=== PATIENT | male | born 1955 | race Caucasian/White ===

== ENCOUNTER 2016-06-28 11:21 | Inpatient (IN) | payer OTHER ==
[~2016-06-28] VITALS: Ht 167.6 cm; Wt 70.0 kg
[2016-06-28] MEDS: 1/2 NS + KCL 20 MEQ 1,000 ML IV SCH (06:15)
[2016-06-28 11:25] VITALS: Ht 167.6 cm; Wt 70.0 kg
[2016-06-28] MEDS ORDERED: SOD CHLORIDE 0.9% 1,000 ML IV STA (11:36)
[2016-06-28] MEDS ORDERED: DOCU-144 PO (12:32)
[2016-06-28 12:59] LABS: ADD SCAN DIFF NO
[2016-06-28 13:03] LABS: BASOPHILS % 0.2 % (0.0-2.0); EOSINOPHILS # 0.1 10^3/ul (0.0-0.5); EOSINOPHILS % 1.6 % (0.0-7.0); HEMATOCRIT 39.7 % (42.0-52.0); HEMOGLOBIN 12.6 g/dl (14.0-18.0); LYMPHOCYTES # 0.8 10^3/ul (0.8-2.9); LYMPHOCYTES % 15.1 % (15.0-51.0); MEAN CORPUSCULAR HEMOGLOBIN 28.3 pg (29.0-33.0); MEAN CORPUSCULAR HGB CONC 31.7 g/dl (32.0-37.0); MEAN CORPUSCULAR VOLUME 89.2 fl (82.0-101.0); MEAN PLATELET VOLUME 12.3 fl (7.4-10.4); MONOCYTE # 0.5 10^3/ul (0.3-0.9); MONOCYTES % 9.5 % (0.0-11.0); NEUTROPHIL # 4.1 10^3/ul (1.6-7.5); NEUTROPHILS % 73.4 % (39.0-77.0); PLATELET COUNT 121 10^3/UL (140-415); RED BLOOD COUNT 4.45 10^6/ul (4.70-6.10); RED CELL DISTRIBUTION WIDTH 13.6 % (11.5-14.5); WHITE BLOOD COUNT 5.6 10^3/ul (4.8-10.8)
[2016-06-28 13:18] LABS: INR 1.36; PROTIME 16.8 Sec (12.2-14.2); PT RATIO 1.3
[2016-06-28 13:19] LABS: ALBUMIN 3.4 g/dl (3.3-4.9); PARTIAL THROMBOPLASTIN TIME 29.2 Sec (25.0-35.0)
[2016-06-28 13:20] LABS: CHLORIDE 104 mmol/L (97-110); POTASSIUM 3.3 mmol/L (3.5-5.1); SODIUM 143 mmol/L (135-144)
[2016-06-28 13:22] LABS: ALBUMIN/GLOBULIN RATIO 1.21; ANION GAP 12 (8-16); BILIRUBIN,INDIRECT 0.5 mg/dl (0-1.1); BILIRUBIN,TOTAL 0.5 mg/dl (0.2-1.3); CARBON DIOXIDE 30 mmol/L (21-31); CREATININE 0.68 mg/dl (0.61-1.24); TOTAL PROTEIN 6.2 g/dl (6.1-8.1)
[2016-06-28 13:23] LABS: ALKALINE PHOSPHATASE 70 IU/L (42-121); BLOOD UREA NITROGEN 22 mg/dl (7-20); CALCIUM 8.4 mg/dl (8.4-10.2); GLUCOSE 97 mg/dl (70-220)
[2016-06-28 13:41] LABS: ASPARTATE AMINO TRANSFERASE 1466 IU/L (15-46)
[2016-06-28 13:42] LABS: ACETAMINOPHEN < 10.0 ug/ml (10.0-30.0); ETHANOL < 10.0 mg/dl; SALICYLATE < 1.0 mg/dl (5.0-30.0)
[2016-06-28] MEDS ORDERED: ACETYLCYSTEINE 20% 30 ML VIAL PO STA (14:02)
[2016-06-28 15:36] LABS: ADD UMIC YES; URINE BILIRUBIN (Dip) 2+ (NEGATIVE); URINE BLOOD (Dip) NEGATIVE (NEGATIVE); URINE COLOR DK. YELLOW (YELLOW); URINE KETONES (Dip) 40 (NEGATIVE); URINE LEUKOCYTE ESTERASE (Dip) NEGATIVE (NEGATIVE); URINE NITRITE (Dip) NEGATIVE (NEGATIVE); URINE TOTAL PROTEIN (Dip) 1+ (NEGATIVE); URINE UROBILINOGEN (Dip) 4.0 E.U./dL (0.1-1.0)
[2016-06-28] MEDS ORDERED: SOD CHLORIDE 0.9% 1,000 ML IV SCH (15:56)
[2016-06-28 15:57] LABS: BACTERIA,URINE FEW; SQUAMOUS EPITHELIAL CELL,UR RARE; URINE RBCS 0-2 /HPF (0)
[2016-06-28] MEDS ORDERED: ONDANSETRON 4 MG INJ IV PRN ×2 (16:00→17:00)
[2016-06-28] MEDS ORDERED: ACETAMINOPHEN 325 MG TAB PO PRN (16:00)
[2016-06-28 16:06] LABS: ICTOTEST NEGATIVE (NEGATIVE)
[2016-06-28 16:06] LABS: ALANINE AMINOTRANSFERASE 3710 IU/L (13-69)
[2016-06-28 16:11] LABS: BARBITURATES NEGATIVE (NEGATIVE); BENZODIAZEPINES NEGATIVE (NEGATIVE); CANNABINOIDS NEGATIVE (NEGATIVE); COCAINE NEGATIVE (NEGATIVE); OPIATES NEGATIVE (NEGATIVE)
--- NOTE | 2016-06-28 16:17 | ERA ---
ER Documentation Chief Complaint Date/Time DATE: 06/28/16 TIME: 16:12 Chief Complaint BIBA FOR INTENTIONAL TYLENOL OD 40 TABS.VERBALIZED SI HPI This is a 61-year-old male who presents to the emergency room after being brought in by ambulance from home for evaluation of overdose. The patient states that he took 40 tabs of 215 mg Tylenols 48 hours ago. The patient states that he told the social media marketing specialist there is an social media marketing specialist called 911 and the patient was transferred to the emergency room. He does state that he is having pain and localizes the pain to the right upper quadrant. The patient denies any other coingestions and came to the emergency room for further evaluation. He denies any nausea or vomiting ROS All systems reviewed and are negative except as per history of present illness. Medications Home Meds Reported Medications Docusate Sodium* (Colace*) 100 Mg Capsule, 100 MG PO BID Y for CONSTIPATION, # 60 CAP 06/28/16 Allergies Allergies: Coded Allergies: No Known Allergy (Unverified , 06/28/16) PMhx/Soc Anesthesia Reaction: No Hx Neurological Disorder: No Hx Respiratory Disorders: No Hx Cardiac Disorders: No Hx Psychiatric Problems: Yes (Bipolar/ schizophrenic) Hx Miscellaneous Medical Probl: No Hx Alcohol Use: No Hx Substance Use: No Hx Tobacco Use: No Smoking Status: Former smoker Physical Exam Vitals Vital Signs Date Time Temp Pulse Resp B/P Pulse Ox O2 Delivery O2 Flow Rate FiO2 06/28/16 15:00 98.9 82 16 124/80 98 06/28/16 11:25 98.9 78 18 129/82 98 Physical Exam INITIAL VITAL SIGNS: Reviewed by me GENERAL: The patient is well developed and appropriate for usual state of health in no apparent distress HEENT: Pupils equal, round, and reactive to light. EOMI. There is no scleral icterus. NECK: C-spine is soft and supple, there is no meningismus. There is no cervical lymphadenopathy. LUNGS: Clear to auscultation bilaterally. There are no rales, wheezes or rhonchi. HEART: Regular rate and rhythm, no murmurs, clicks, rubs or gallops. ABDOMEN: Tenderness to palpation in the right upper quadrant, otherwise soft, non-tender, non-distended. There are bowel sounds in all four quadrants. No rebound or guarding. EXTREMITIES: There is no peripheral cyanosis or edema. No focal swelling or erythema. NEUROLOGICAL: The patient moves all four extremities with 5/5 strength. Cranial nerves II - XII are intact. Normal gait. Alert and oriented SKIN: There is no apparent rash or petechiae. HEME/LYMPHATIC: There is no evidence of excessive bruising or lymphedema. PSYCHIATRIC: The patient does not appear anxious or depressed. Result Diagram: 06/28/16 1255 06/28/16 1255 Results 24 hrs Laboratory Tests Test 06/28/16 12:55 06/28/16 15:01 White Blood Count 5.610^3/ul Red Blood Count 4.4510^6/ul Hemoglobin 12.6g/dl Hematocrit 39.7% Mean Corpuscular Volume 89.2fl Mean Corpuscular Hemoglobin 28.3pg Mean Corpuscular Hemoglobin Concent 31.7g/dl Red Cell Distribution Width 13.6% Platelet Count 07478^3/UL Mean Platelet Volume 12.3fl Neutrophils % 73.4% Lymphocytes % 15.1% Monocytes % 9.5% Eosinophils % 1.6% Basophils % 0.2% Nucleated Red Blood Cells % 0.0/100WBC Neutrophils # 4.110^3/ul Lymphocytes # 0.810^3/ul Monocytes # 0.510^3/ul Eosinophils # 0.110^3/ul Basophils # 0.010^3/ul Nucleated Red Blood Cells # 0.010^3/ul Prothrombin Time 16.8Sec Prothrombin Time Ratio 1.3 INR International Normalized Ratio 1.36 Activated Partial Thromboplast Time 29.2Sec Sodium Level 143mmol/L Potassium Level 3.3mmol/L Chloride Level 104mmol/L Carbon Dioxide Level 30mmol/L Anion Gap 12 Blood Urea Nitrogen 22mg/dl Creatinine 0.68mg/dl Glucose Level 97mg/dl Calcium Level 8.4mg/dl Total Bilirubin 0.5mg/dl Direct Bilirubin 0.00mg/dl Indirect Bilirubin 0.5mg/dl Aspartate Amino Transf (AST/SGOT) 1466IU/L Alanine Aminotransferase (ALT/SGPT) 3710IU/L Alkaline Phosphatase 70IU/L Total Protein 6.2g/dl Albumin 3.4g/dl Globulin 2.80g/dl Albumin/Globulin Ratio 1.21 Salicylates Level < 1.0mg/dl Acetaminophen Level < 10.0ug/ml Ethyl Alcohol Level < 10.0mg/dl Urine Color DK. YELLOW Urine Clarity CLEAR Urine pH 6.0 Urine Specific [place] >=1.030 Urine Ketones 40 Urine Nitrite NEGATIVE Urine Bilirubin 2+ Urine Ictotest NEGATIVE Urine Urobilinogen 4.0 E.U./dL Urine Leukocyte Esterase NEGATIVE Urine Microscopic RBC 0-2/HPF Urine Microscopic WBC 0-2/HPF Urine Squamous Epithelial Cells RARE Urine Bacteria FEW Urine Hemoglobin NEGATIVE Urine Glucose 0.1%% Urine Total Protein 1+ Urine Opiates Screen NEGATIVE Urine Barbiturates NEGATIVE Urine Amphetamines Screen NEGATIVE Urine Benzodiazepines Screen NEGATIVE Urine Cocaine Screen NEGATIVE Urine Cannabinoids NEGATIVE Current Medications Medications (Trade) Dose Ordered Sig/[place] Route PRN Reason Start Time Stop Time Status Last Admin Dose Admin Sodium Chloride (NS) 1,000 ml @ 1,000 mls/hr Q1H STAT IV 06/28/16 11:36 06/28/16 12:35 DC 06/28/16 11:46 Acetylcysteine 9.8 gm 9.8 gm ONCE STAT PO 06/28/16 14:02 06/28/16 14:10 DC 06/28/16 14:35 Sodium Chloride (NS) 1,000 ml @ 80 mls/hr [id number] IV 06/28/16 15:56 06/29/16 04:25 Ondansetron HCl (Zofran Inj) 4 mg BRIDGE ORDER PRN IV NAUSEA AND/OR VOMITING 06/28/16 16:00 06/29/16 15:59 Acetaminophen (Tylenol Tab) 650 mg ER BRIDGE PRN PO MILD PAIN/FEVER 06/28/16 16:00 06/29/16 15:59 Procedures/MDM EKG: Rate/Rhythm: [Normal Sinus Rhythm] QRS, ST, T-waves: [No changes consistent w/ acute ischemia] Impression: [No evidence of ischemia or arrhythmia] This 61-year-old male presents to the emergency room after ingesting approximately 10 g of Tylenol 48 hours ago. When I evaluated this patient he did have a tenderness to palpation in the right upper quadrant. Lab work was obtained in the patient's Tylenol level is 0 as expected if he were to have taken Tylenol 48 hours ago however he does have significant transaminitis and given the patient's history the patient was started on oral N-acetylcysteine. We have contacted poison control who recommended continuation of N- acetylcysteine with a repeat liver function test. This patient is alert oriented to person place and time, he is hemodynamically stable at this time and will be placed in for admission to the [facility] floor with a sitter for suicidal ideation. He will be admitted under the care of Dr. Enrique. Critical Care: Excluding all billable procedures Time: 34 minutes Treatments/Evaluations: Close monitoring and treatment of unstable vital signs, cardiorespiratory, and neurologic status, while maintaining tight balance of fluid, respiratory, and cardiac interventions. Departure Diagnosis: Primary Impression: Overdose on Tylenol Additional Impressions: Suicide attempt by substance overdose Acute hepatitis Normocytic anemia Thrombocytopenia Condition: Serious MIKEJUDITH CROWE June 28, 2016 16:17
[2016-06-28] MEDS ORDERED: DOCUSATE SODIUM 100 MG CAP PO PRN (17:00)
[2016-06-28] MEDS ORDERED: NACL 0.9% 3 ML SYG IV SCH (17:00)
[2016-06-28] MEDS: ACETYLCYSTEINE 20% 30 ML VIAL PO SCH ×2 (17:07→21:00)
--- NOTE | 2016-06-28 18:32 | CONS ---
Date/Time of Note Date/Time of Note DATE: 06/28/16 TIME: 18:21 Assessment/Plan Assessment/Plan Additional Assessment/Plan Assessment * Elevated transaminase Tylenol overdose Suicidal ideation Schizophrenia/Bipolar disorder Plan * monitor liver profile to include PT,PTT INR * continue present management Consultation Date/Type/Reason Admit Date/Time Date of Consultation: June 28, 2016 Type of Consultation: gastroenerology Reason for Consultation tylenol toxicity/elevated transaminase Referring Provider: AGUILAR BRADLEY Hx of Present Illness 61 year old male with past medical of schizophrenia,and bipolar disorder who was brought to emergency room for evaluation of overdose.He claimed to have taken 40 tablets of Tylenol 115 mg 48 hours ago.patient denies any nausea, vomiting,nor abdominal pain. Emergency room course revealed ALT 3710.AST 17333,alkaline phosphatase 70 Tylenol <10.Presently no abdominal pain nausea nor vomiting.Patient was also given acetylcysteine Past Medical History Medical History: other (bipolar,schizophrenia) Past Surgical History Past Surgical Hx: no surgical history Family History Significant Family History: no pertinent family hx Social History Smoking Status: Former smoker Exam/Review of Systems Vital Signs Vitals Vital Signs Date Time Temp Pulse Resp B/P Pulse Ox O2 Delivery O2 Flow Rate FiO2 06/28/16 15:00 98.9 82 16 124/80 98 Exam Constitutional: alert, oriented, well developed Head: atraumatic, normocephalic Eyes: PERRL, nl conjunctiva, nl sclera Neck: non-tender, supple Respiratory: clear to auscultation, normal air movement Cardiovascular: nl pulses, regular rate and rhythm Gastrointestinal: nl liver, spleen, non-tender, soft Musculoskeletal: nl extremities to inspection, nl gait and stance Extremities: normal pulses Neurological: DRAMATIC CRITIC II-XII intact, nl mental status, nl speech, nl strength Skin: nl turgor, No rash or lesions Lymph: nl lymph nodes Results Result Diagram: 06/28/16 1255 06/28/16 1255 Results 24 hrs Laboratory Tests Test 06/28/16 12:55 06/28/16 15:01 White Blood Count 5.6 Red Blood Count 4.45 L Hemoglobin 12.6 L Hematocrit 39.7 L Mean Corpuscular Volume 89.2 Mean Corpuscular Hemoglobin 28.3 L Mean Corpuscular Hemoglobin Concent 31.7 L Red Cell Distribution Width 13.6 Platelet Count 121 L Mean Platelet Volume 12.3 H Neutrophils % 73.4 Lymphocytes % 15.1 Monocytes % 9.5 Eosinophils % 1.6 Basophils % 0.2 Nucleated Red Blood Cells % 0.0 Neutrophils # 4.1 Lymphocytes # 0.8 Monocytes # 0.5 Eosinophils # 0.1 Basophils # 0.0 Nucleated Red Blood Cells # 0.0 Prothrombin Time 16.8 H Prothrombin Time Ratio 1.3 INR International Normalized Ratio 1.36 Activated Partial Thromboplast Time 29.2 Sodium Level 143 Potassium Level 3.3 L Chloride Level 104 Carbon Dioxide Level 30 Anion Gap 12 Blood Urea Nitrogen 22 H Creatinine 0.68 Glucose Level 97 Calcium Level 8.4 Total Bilirubin 0.5 Direct Bilirubin 0.00 Indirect Bilirubin 0.5 Aspartate Amino Transf (AST/SGOT) 1466 H Alanine Aminotransferase (ALT/SGPT) 3710 H Alkaline Phosphatase 70 Total Protein 6.2 Albumin 3.4 Globulin 2.80 Albumin/Globulin Ratio 1.21 Salicylates Level < 1.0 L Acetaminophen Level < 10.0 L Ethyl Alcohol Level < 10.0 Urine Color DK. YELLOW Urine Clarity CLEAR Urine pH 6.0 Urine Specific [place] >=1.030 H Urine Ketones 40 Urine Nitrite NEGATIVE Urine Bilirubin 2+ H Urine Ictotest NEGATIVE Urine Urobilinogen 4.0 E.U./dL H Urine Leukocyte Esterase NEGATIVE Urine Microscopic RBC 0-2 Urine Microscopic WBC 0-2 Urine Squamous Epithelial Cells RARE Urine Bacteria FEW Urine Hemoglobin NEGATIVE Urine Glucose 0.1% H Urine Total Protein 1+ H Urine Opiates Screen NEGATIVE Urine Barbiturates NEGATIVE Urine Amphetamines Screen NEGATIVE Urine Benzodiazepines Screen NEGATIVE Urine Cocaine Screen NEGATIVE Urine Cannabinoids NEGATIVE Medications Medications Current Medications Sodium Chloride (NS) 1,000 ml @ 80 mls/hr [id number] IV Last administered on 06/28 16:30; Admin Dose 80 MLS/HR; Start 06/28/16 at 15:56; Stop 06/29/16 at 04: 25 Acetylcysteine 4.9 gm 4.9 gm Q4 PO Last administered on 06/28/16 17:07; Admin Dose 4.9 GM; Start 06/28/16 at 17:00; Stop 07/01/16 at 09:01 Potassium Chloride/Sodium Chloride (1/2 NS + KCl 20 Meq) 1,000 ml @ 100 mls/hr Q10H IV ; Start 06/28/16 at 16:35 Ondansetron HCl (Zofran Inj) 4 mg Q6H PRN IV NAUSEA AND/OR VOMITING; Start at 17:00 Docusate Sodium (Colace) 100 mg Q12H PRN PO CONSTIPATION; Start 06/28/16 at 17: 00 ROX SEQUEIRA MD June 28, 2016 18:31
[2016-06-28 18:49] LABS: BILIRUBIN,INDIRECT 0.4 mg/dl (0-1.1); BILIRUBIN,TOTAL 0.4 mg/dl (0.2-1.3)
--- NOTE | 2016-06-28 19:01 | HP ---
DATE OF ADMISSION: 06/28/2016 06/26/1998 CHIEF COMPLAINT: Tylenol overdose. HISTORY OF PRESENT ILLNESS: The patient is a 61-year-old male with a history of schizoaffective dis order. The patient presents to the ER after being brought in by ambulance from home for evaluation of overdose. The patient reportedly took 40 tablets of Tylenol 48 hours prior. The patient reporte joaquim told the psychotherapist social worker and the psychotherapist social worker then called 911, and the patient was transferred to the emergency room. The patient does state that he has pain in the right upper quadrant. He has n o other complaints at this time, does state that he was trying to take his own life. He states that he could not find his wallet and got frustrated and felt that he wanted to take his own life. The patient states that he has no roommates and lives on his own. The patient does state that he has a psychiatrist, but he had not picked up his psychiatric medications over the past week. The patient has no other medical history. In the emergency department, the patient's LFTs were elevated. Tylen ol level was negative. PAST MEDICAL HISTORY: Schizoaffective disorder on psychiatric medications. PAST SURGICAL HISTORY: Denies. HOME MEDICATIONS: Colace. ALLERGIES: NO KNOWN DRUG ALLERGIES. FAMILY HISTORY: He states his father had dysthymic disorder. SOCIAL HISTORY: Denies any drug abuse, alcohol abuse, or tobacco abuse. REVIEW OF SYSTEMS: A 12-point review of systems negative except as in HPI. PHYSICAL EXAMINATION: VITAL SIGNS: Temperature is 98.9, pulse 82, respiratory rate 16, BP is 124/80, saturation 98% on ro om air. GENERAL: No acute distress, alert, slow mentation. HEENT: Normocephalic, atraumatic. LUNGS: Clear to auscultation. CARDIOVASCULAR: Regular rate and rhythm. ABDOMEN: Nondistended, soft, tender to palpation in the right upper quadrant. EXTREMITIES: No clubbing, cyanosis, or edema. LABORATORY TESTS: White count is 5.6, hemoglobin 12.6, platelets are 121. Chemistry: Sodium is 14 3, potassium is 3.3, BUN 22, creatinine is 0.68, AST is 1466, ALT is 2710. INR is 1.36. UA is with in normal limits except for 2+ bilirubin, 1+ total protein. U-tox is negative. Tylenol level is neg ative. ASSESSMENT AND PLAN: 1. Attempted suicide with Tylenol overdose. The patient took Tylenol at 40 hours prior. Tylenol i s hence negative, but his liver function tests are still elevated. Poison control was contacted in the emergency department. Recommendation is to continue Mucomyst p.o., which has already been orde red in the emergency department and has been started. We ____ telemetry and monitor liver function tests. Will get a gastroenterology consult. will get a psychiatric evaluation, a psychotherapist social worker brigida sue. 2. History of schizoaffective disorder. Once again, we will get a psych consult. His home psychia tric medications are unclear. 3. Hypokalemia, replete. 4. Thrombocytopenia is mild. We will monitor. 5. Prophylaxis: Sequential compression devices. Dictated By: BRITTNEY MICHAEL MD BS/NTS Conf#: [id number] DID#: [id number]
[2016-06-28 21:10] VITALS: TEMP 98.6
[2016-06-28 21:42] VITALS: PULSE 53
[2016-06-28 21:44] VITALS: BP 135/80; RESP 16
[2016-06-29] VITALS (9 sets, daily range): BP systolic 122–125; BP diastolic 67–75; PULSE 50–68; RESP 20
[2016-06-29] MEDS: ACETYLCYSTEINE 20% 30 ML VIAL PO SCH ×6 (01:00→21:48)
[2016-06-29] MEDS: 1/2 NS + KCL 20 MEQ 1,000 ML IV SCH ×3 (02:35→15:43)
[2016-06-29 08:37] LABS: ADD SCAN DIFF NO
[2016-06-29 08:47] LABS: BASOPHILS % 0.3 % (0.0-2.0); EOSINOPHILS # 0.1 10^3/ul (0.0-0.5); EOSINOPHILS % 0.9 % (0.0-7.0); HEMATOCRIT 41.5 % (42.0-52.0); HEMOGLOBIN 13.5 g/dl (14.0-18.0); LYMPHOCYTES # 0.9 10^3/ul (0.8-2.9); LYMPHOCYTES % 14.5 % (15.0-51.0); MEAN CORPUSCULAR HEMOGLOBIN 28.8 pg (29.0-33.0); MEAN CORPUSCULAR HGB CONC 32.5 g/dl (32.0-37.0); MEAN CORPUSCULAR VOLUME 88.7 fl (82.0-101.0); MEAN PLATELET VOLUME 12.6 fl (7.4-10.4); MONOCYTE # 0.6 10^3/ul (0.3-0.9); MONOCYTES % 8.5 % (0.0-11.0); NEUTROPHIL # 4.9 10^3/ul (1.6-7.5); NEUTROPHILS % 75.5 % (39.0-77.0); PLATELET COUNT 137 10^3/UL (140-415); RED BLOOD COUNT 4.68 10^6/ul (4.70-6.10); RED CELL DISTRIBUTION WIDTH 13.4 % (11.5-14.5); WHITE BLOOD COUNT 6.5 10^3/ul (4.8-10.8)
[2016-06-29 09:09] LABS: ALBUMIN 3.3 g/dl (3.3-4.9); ALBUMIN/GLOBULIN RATIO 1.17; BILIRUBIN,INDIRECT 0.4 mg/dl (0-1.1); BILIRUBIN,TOTAL 0.4 mg/dl (0.2-1.3); CALCIUM 8.4 mg/dl (8.4-10.2); CREATININE 0.51 mg/dl (0.61-1.24); MAGNESIUM 1.9 mg/dl (1.7-2.5); PHOSPHORUS 2.8 mg/dl (2.5-4.9); POTASSIUM 3.2 mmol/L (3.5-5.1); TOTAL PROTEIN 6.1 g/dl (6.1-8.1)
[2016-06-29] MEDS ORDERED: POTASSIUM CHLORIDE (SR) 20 MEQ TAB PO STA (10:12)
--- NOTE | 2016-06-29 15:19 | PN ---
Date/Time of Note Date/Time of Note DATE: 06/29/16 TIME: 15:15 Assessment/Plan VTE Prophylaxis VTE Prophylaxis Intervention: SCD's Assessment/Plan Chief Complaint/Hosp Course 1. Attempted suicide with Tylenol overdose Liver enzymes are trending down GI consultation appreciated Continue Mucomyst Patient denying suicidal ideation at this time, continue one-to-one sitter for now 2. History of schizoaffective disorder Telemetry psych evaluation, director social service consultation 3. Hypokalemia- replete 4. Thrombocytopenia-mild Monitor Prophylaxis: Sequential compression devices Problems: Subjective 24 Hr Interval Summary Constitutional: no complaints Exam/Review of Systems Vital Signs Vitals Vital Signs Date Time Temp Pulse Resp B/P Pulse Ox O2 Delivery O2 Flow Rate FiO2 06/29/16 12:00 59 06/29/16 12:00 98.7 20 122/67 98 06/28/16 21:10 Room Air Intake and Output 06/28/16 06/28/16 06/29/16 15:00 23:00 07:00 Intake Total 1000 ml Balance 1000 ml Exam Constitutional: alert Respiratory: clear to auscultation Cardiovascular: regular rate and rhythm Gastrointestinal: soft, No distended Musculoskeletal: nl extremities to inspection Results Result Diagram: 06/29/16 0725 06/29/16 0725 Results 24 hrs Laboratory Tests Test 06/29/16 07:25 White Blood Count 6.5 Red Blood Count 4.68 L Hemoglobin 13.5 L Hematocrit 41.5 L Mean Corpuscular Volume 88.7 Mean Corpuscular Hemoglobin 28.8 L Mean Corpuscular Hemoglobin Concent 32.5 Red Cell Distribution Width 13.4 Platelet Count 137 L Mean Platelet Volume 12.6 H Neutrophils % 75.5 Lymphocytes % 14.5 L Monocytes % 8.5 Eosinophils % 0.9 Basophils % 0.3 Nucleated Red Blood Cells % 0.0 Neutrophils # 4.9 Lymphocytes # 0.9 Monocytes # 0.6 Eosinophils # 0.1 Basophils # 0.0 Nucleated Red Blood Cells # 0.0 Sodium Level 139 Potassium Level 3.2 L Chloride Level 108 Carbon Dioxide Level 24 Anion Gap 10 Blood Urea Nitrogen 17 Creatinine 0.51 L Glucose Level 77 Hemoglobin A1c 5.4 Calcium Level 8.4 Phosphorus Level 2.8 Magnesium Level 1.9 Total Bilirubin 0.4 Direct Bilirubin 0.00 Indirect Bilirubin 0.4 Aspartate Amino Transf (AST/SGOT) 604 #H Alanine Aminotransferase (ALT/SGPT) 2497 H Alkaline Phosphatase 63 Total Protein 6.1 Albumin 3.3 Globulin 2.80 Albumin/Globulin Ratio 1.17 Medications Medications Current Medications Acetylcysteine 4.9 gm 4.9 gm Q4 PO Last administered on 06/29/16 13:01; Admin Dose 4.9 GM; Start 06/28/16 at 17:00; Stop 07/01/16 at 09:01 Potassium Chloride/Sodium Chloride (1/2 NS + KCl 20 Meq) 1,000 ml @ 100 mls/hr Q10H IV Last administered on 06/28/16 06:15; Admin Dose 100 MLS/HR; Start at 16:35 Ondansetron HCl (Zofran Inj) 4 mg Q6H PRN IV NAUSEA AND/OR VOMITING; Start at 17:00 Docusate Sodium (Colace) 100 mg Q12H PRN PO CONSTIPATION; Start 06/28/16 at 17: 00 BRITTNEY MICHAEL June 29, 2016 15:19
--- NOTE | 2016-06-29 15:58 | PN ---
Date/Time of Note Date/Time of Note DATE: 06/29/16 TIME: 15:54 Assessment/Plan VTE Prophylaxis VTE Prophylaxis Intervention: SCD's Assessment/Plan Assessment/Plan Assessment * Elevated transaminase Tylenol overdose Suicidal ideation Schizophrenia/Bipolar disorder Plan * monitor liver profile to include PT,PTT INR daily * continue present management Subjective 24 Hr Interval Summary Free Text/Dictation * Course reviewed with RN * Patient seen and examined * Liver enzymes trending down * ALT 3710- 2497 * AST 1466- 604 * denies abdominal pain Exam/Review of Systems Vital Signs Vitals Vital Signs Date Time Temp Pulse Resp B/P Pulse Ox O2 Delivery O2 Flow Rate FiO2 06/29/16 15:38 98.5 69 20 123/73 99 06/28/16 21:10 Room Air Intake and Output 06/28/16 06/28/16 06/29/16 15:00 23:00 07:00 Intake Total 1000 ml Balance 1000 ml Exam Constitutional: alert, frail Head: normocephalic Neck: non-tender, supple Respiratory: clear to auscultation, normal air movement Cardiovascular: nl pulses, regular rate and rhythm Gastrointestinal: non-tender, soft Musculoskeletal: nl extremities to inspection, nl gait and stance Extremities: normal pulses Results Result Diagram: 06/29/1625 06/29/16 0725 Results 24 hrs Laboratory Tests Test 06/29/16 07:25 White Blood Count 6.5 Red Blood Count 4.68 L Hemoglobin 13.5 L Hematocrit 41.5 L Mean Corpuscular Volume 88.7 Mean Corpuscular Hemoglobin 28.8 L Mean Corpuscular Hemoglobin Concent 32.5 Red Cell Distribution Width 13.4 Platelet Count 137 L Mean Platelet Volume 12.6 H Neutrophils % 75.5 Lymphocytes % 14.5 L Monocytes % 8.5 Eosinophils % 0.9 Basophils % 0.3 Nucleated Red Blood Cells % 0.0 Neutrophils # 4.9 Lymphocytes # 0.9 Monocytes # 0.6 Eosinophils # 0.1 Basophils # 0.0 Nucleated Red Blood Cells # 0.0 Sodium Level 139 Potassium Level 3.2 L Chloride Level 108 Carbon Dioxide Level 24 Anion Gap 10 Blood Urea Nitrogen 17 Creatinine 0.51 L Glucose Level 77 Hemoglobin A1c 5.4 Calcium Level 8.4 Phosphorus Level 2.8 Magnesium Level 1.9 Total Bilirubin 0.4 Direct Bilirubin 0.00 Indirect Bilirubin 0.4 Aspartate Amino Transf (AST/SGOT) 604 #H Alanine Aminotransferase (ALT/SGPT) 2497 H Alkaline Phosphatase 63 Total Protein 6.1 Albumin 3.3 Globulin 2.80 Albumin/Globulin Ratio 1.17 Medications Medications Current Medications Acetylcysteine 4.9 gm 4.9 gm Q4 PO Last administered on 06/29/16 13:01; Admin Dose 4.9 GM; Start 06/28/16 at 17:00; Stop 07/01/16 at 09:01 Potassium Chloride/Sodium Chloride (1/2 NS + KCl 20 Meq) 1,000 ml @ 100 mls/hr Q10H IV Last administered on 06/29/16 15:43; Admin Dose 100 MLS/HR; Start at 16:35 Ondansetron HCl (Zofran Inj) 4 mg Q6H PRN IV NAUSEA AND/OR VOMITING; Start at 17:00 Docusate Sodium (Colace) 100 mg Q12H PRN PO CONSTIPATION; Start 06/28/16 at 17: 00 ROX SEQUEIRA MD June 29, 2016 15:58
--- NOTE | 2016-06-29 16:01 | PSY ---
Date/Time of Note Date/Time of Note DATE: 06/29/16 TIME: 14:48 Psychiatric Subjective Eval Consent Pt consented to telemedicine: Yes Subjective Evaluation Chief Complaint: BIBA FOR INTENTIONAL TYLENOL OD 40 TABS.VERBALIZED SI Reason for consult: Suicidal ideation. History of present illness Hx of Present Illness 61 year old male with past medical of schizophrenia,and bipolar disorder who was brought to emergency room for evaluation of overdose.He claimed to have taken 40 tablets of Tylenol 115 mg 48 hours ago.patient denies any nausea, vomiting,nor abdominal pain. Emergency room course revealed ALT 3710.AST 49081, alkaline phosphatase 70 Tylenol <10.Presently no abdominal pain nausea nor vomiting.Patient was also given acetylcysteine. At the time of the event, the geriatric social work professor Ashish DEE said that he was not on his medications. He stated that A psychiatric consult was requested in light of his suicide attempt and statements of feeling suicidal. He denies suicidal ideation, intent or plan during the interview. He does report feeling that where he is living at this time is not safe. He shared that he has a history of OCD, as well as hording, and has purchased an excessive amount of books. He said that there is going to be a "wellness check" at his apartment. He states that he is preoccupied about cleanliness, and contamination. He also has problems with checking. He denies hallucinations however at times has complained of ideas of reference and delusions of grandeur. The major symptoms resulting in impairment or disability is his symptoms of depression and OCD. He was prescribed, Wellbutrin, Clonazepam and Abilify. He does not know the dose. Mental Status Exam: During the interview, the patient was cooperative, however there was a significant delay in response. It also appears that he had difficulty making decisions. At the same time he is able to recall 3 of 3 objects in 10 minutes. He was able to do serial 7's without difficulty. Recite months backward without difficulty. He demonstrated an above average general fund of knowledge. He denies hallucinations or delusions. His speech is rarely spontaneous but is goal directed. There is latency in his responses. His mood is depressed and he reports feeling anxious. Thought process is topical, logical and coherent. Short, intermediate and tank terminal gauger memory is intact. Insight and judgment is not impaired. Past psychiatric history Past Psychiatric History Psychiatric History: He was first diagnosed when he was 25. He said when he was 25 after a spiritual retreat, he demonstrated manic symptoms. He described his diaz as decreased need for sleep. Suicide attempt in December,. He said that when his father he had the delusion that he won the [employer]oni peace prize. He has had a history of ideas of reference. He was prescribed lithium in the past. He experienced weight gain and tremors. Past Medical History Medical History: other (bipolar,schizophrenia), essential tremor. Past Surgical History Past Surgical Hx: no surgical history Family History Significant Family History: no pertinent family hx Social History Smoking Status: Former smoker, He is living alone. He is on SSDI. He has a BA in [employer]. He has a sister and a brother. They are in good health. Substance Use History: Denies any history of problems with substance use. Family History Cousin served in [employer], has PTSD. Father was described a dysthymic. He committed suicide after being diagnosed with pancreatic cancer in 1988. Medical history Problems Medical Problems: (1) Acute hepatitis Status: Acute (2) Normocytic anemia Status: Acute (3) Overdose on Tylenol Status: Acute (4) Suicide attempt by substance overdose Status: Acute (5) Thrombocytopenia Status: Acute Allergies: Coded Allergies: No Known Allergy (Unverified , 06/28/16) Substance Abuse Substance use: No known substance abuse Social History Marital status: single (BA in [employer] from [facility] ) DPA/Conservatorship: No Occupation/Senior Care: disabled Psychiatric Objective Eval Review of Systems: Review of Systems: Not Applicable Constitutional: Normal Eyes: Normal ENT: Normal Neck: Normal Respiratory: Normal Chest/Breast: Normal Cardiovascular: Normal GI: Normal Genitourinary: Normal Skin: Normal Lymphatic: Normal Musculoskeletal: Normal Neurological: Normal Other: Complained of low back pain. Mental Status Examination: Appearance: Groomed Eye Contact: Good Psychomotor Activity: Normal Behavior: Friendly, Cooperative Speech: Clear, Monotone, Prolong Speech Latency AFFECT: Flat Mood: Depressed, Anxious Though Process: Linear Thought Content: Normal Suicidal: No Homicidal: No On 72 hour hold: No Orientation: x4 Cognition: Alert Insight: Intact Judgement: Intact Attention Span: Intact Laboratory Results Laboratory Tests Test 06/28/16 12:55 06/28/16 15:01 06/29/16 07:25 White Blood Count 5.610^3/ul 6.510^3/ul Red Blood Count 4.4510^6/ul 4.6810^6/ul Hemoglobin 12.6g/dl 13.5g/dl Hematocrit 39.7% 41.5% Mean Corpuscular Volume 89.2fl 88.7fl Mean Corpuscular Hemoglobin 28.3pg 28.8pg Mean Corpuscular Hemoglobin Concent 31.7g/dl 32.5g/dl Red Cell Distribution Width 13.6% 13.4% Platelet Count 86370^3/UL 31763^3/UL Mean Platelet Volume 12.3fl 12.6fl Neutrophils % 73.4% 75.5% Lymphocytes % 15.1% 14.5% Monocytes % 9.5% 8.5% Eosinophils % 1.6% 0.9% Basophils % 0.2% 0.3% Nucleated Red Blood Cells % 0.0/100WBC 0.0/100WBC Neutrophils # 4.110^3/ul 4.910^3/ul Lymphocytes # 0.810^3/ul 0.910^3/ul Monocytes # 0.510^3/ul 0.610^3/ul Eosinophils # 0.110^3/ul 0.110^3/ul Basophils # 0.010^3/ul 0.010^3/ul Nucleated Red Blood Cells # 0.010^3/ul 0.010^3/ul Prothrombin Time 16.8Sec Prothrombin Time Ratio 1.3 INR International Normalized Ratio 1.36 Activated Partial Thromboplast Time 29.2Sec Sodium Level 143mmol/L 139mmol/L Potassium Level 3.3mmol/L 3.2mmol/L Chloride Level 104mmol/L 108mmol/L Carbon Dioxide Level 30mmol/L 24mmol/L Anion Gap 12 10 Blood Urea Nitrogen 22mg/dl 17mg/dl Creatinine 0.68mg/dl 0.51mg/dl Glucose Level 97mg/dl 77mg/dl Calcium Level 8.4mg/dl 8.4mg/dl Total Bilirubin 0.4mg/dl 0.4mg/dl Direct Bilirubin 0.00mg/dl 0.00mg/dl Indirect Bilirubin 0.4mg/dl 0.4mg/dl Aspartate Amino Transf (AST/SGOT) 1431IU/L 604IU/L Alanine Aminotransferase (ALT/SGPT) 3741IU/L 2497IU/L Alkaline Phosphatase 65IU/L 63IU/L Total Protein 6.2g/dl 6.1g/dl Albumin 3.4g/dl 3.3g/dl Globulin 2.80g/dl 2.80g/dl Albumin/Globulin Ratio 1.21 1.17 Salicylates Level < 1.0mg/dl Acetaminophen Level < 10.0ug/ml Ethyl Alcohol Level < 10.0mg/dl Urine Color DK. YELLOW Urine Clarity CLEAR Urine pH 6.0 Urine Specific Zenia >=1.030 Urine Ketones 40 Urine Nitrite NEGATIVE Urine Bilirubin 2+ Urine Ictotest NEGATIVE Urine Urobilinogen 4.0 E.U./dL Urine Leukocyte Esterase NEGATIVE Urine Microscopic RBC 0-2/HPF Urine Microscopic WBC 0-2/HPF Urine Squamous Epithelial Cells RARE Urine Bacteria FEW Urine Hemoglobin NEGATIVE Urine Glucose 0.1%% Urine Total Protein 1+ Urine Opiates Screen NEGATIVE Urine Barbiturates NEGATIVE Urine Amphetamines Screen NEGATIVE Urine Benzodiazepines Screen NEGATIVE Urine Cocaine Screen NEGATIVE Urine Cannabinoids NEGATIVE Hemoglobin A1c 5.4% Phosphorus Level 2.8mg/dl Magnesium Level 1.9mg/dl Assessment and Plan Assessment/Diagnosis Glenn I: F31.63 Bipolar disorder, mixed severe without psychotic features. F42.9 Obsessive Compulsive Disorder. Glenn II: No psychiatric diagnosis Glenn III: Tylenol overdose. Glenn IV: Problems with housing, social support. Glenn V: 50 Recommendation/Plan Medication Management Suggest Zoloft 50mg po daily for 7 days, increase 50mg every 3 days, until 200mg daily. (for depression and OCD symptoms) Abilify 10mg po daily (for mood stabilization and dysphoric manic symptoms) Tegretol 300mg po bid (for mood stabilization) Lamotrigine 25mg po daily for 2 weeks, then 25mg po bid for 2 weeks, then 50mg po bid for 1 week, then 100mg po bid. (Consider discontinuing Tegretol once Lamotrigine is in therapeutic range.) The patient remains at risks for self harm, especially at his current home. I would suggest that a mental health professional visit the home to assess if hoarding is a problem, and that such an environment may adversely affect his mood and quality of life. Since the patient is not "medically cleared" and is receiving medical treatment and is cooperative with his medical and psychiatric care, the issue of 5150 is not indicated at this time. He should be reassessed if he is medically stable and ready for discharge. human services professional could provide more history from family members to obtain collateral history. Psychotherapy He clearly would benefit from CBT for his depression and OCD symptoms. 5150 Recommendation: 5150 is not required at this time as he is receiving medical care voluntarily. CHAI CHILDRESS MD June 29, 2016 15:00
[2016-06-29 17:21] LABS: INR 1.15; PARTIAL THROMBOPLASTIN TIME 25.9 Sec (25.0-35.0); PROTIME 14.7 Sec (12.2-14.2); PT RATIO 1.1
[2016-06-29 17:34] LABS: BILIRUBIN,INDIRECT 0.1 mg/dl (0-1.1); BILIRUBIN,TOTAL 0.1 mg/dl (0.2-1.3)
[2016-06-30] VITALS (12 sets, daily range): BP systolic 115–162; BP diastolic 70–86; PULSE 54–76; RESP 16–20
[2016-06-30] MEDS: ACETYLCYSTEINE 20% 30 ML VIAL PO SCH ×6 (01:13→20:22)
[2016-06-30] MEDS: 1/2 NS + KCL 20 MEQ 1,000 ML IV SCH (02:28)
[2016-06-30 07:15] LABS: ADD SCAN DIFF NO
[2016-06-30 07:22] LABS: BASOPHILS % 0.2 % (0.0-2.0); EOSINOPHILS # 0.1 10^3/ul (0.0-0.5); EOSINOPHILS % 1.1 % (0.0-7.0); HEMATOCRIT 38.6 % (42.0-52.0); HEMOGLOBIN 12.4 g/dl (14.0-18.0); LYMPHOCYTES # 1.1 10^3/ul (0.8-2.9); LYMPHOCYTES % 18.8 % (15.0-51.0); MEAN CORPUSCULAR HEMOGLOBIN 28.2 pg (29.0-33.0); MEAN CORPUSCULAR HGB CONC 32.1 g/dl (32.0-37.0); MEAN CORPUSCULAR VOLUME 87.9 fl (82.0-101.0); MEAN PLATELET VOLUME 12.3 fl (7.4-10.4); MONOCYTE # 0.6 10^3/ul (0.3-0.9); MONOCYTES % 9.8 % (0.0-11.0); NEUTROPHILS % 69.7 % (39.0-77.0); PLATELET COUNT 140 10^3/UL (140-415); RED BLOOD COUNT 4.39 10^6/ul (4.70-6.10); RED CELL DISTRIBUTION WIDTH 13.6 % (11.5-14.5); WHITE BLOOD COUNT 5.7 10^3/ul (4.8-10.8)
[2016-06-30 07:51] LABS: ALBUMIN/GLOBULIN RATIO 1.2; BILIRUBIN,INDIRECT 0.3 mg/dl (0-1.1); BILIRUBIN,TOTAL 0.3 mg/dl (0.2-1.3); CALCIUM 8.3 mg/dl (8.4-10.2); CREATININE 0.55 mg/dl (0.61-1.24); POTASSIUM 3.8 mmol/L (3.5-5.1); TOTAL PROTEIN 5.5 g/dl (6.1-8.1)
[2016-06-30] MEDS: ARIPIPRAZOLE 10 MG TAB PO SCH (10:40)
[2016-06-30] MEDS: LAMOTRIGINE 25 MG TAB PO SCH (10:42)
[2016-06-30] MEDS: SERTRALINE 50 MG TAB PO SCH (10:42)
[2016-06-30] MEDS: carBAMAZepine CHEW 100 MG CHEW PO SCH ×2 (10:44→20:23)
--- NOTE | 2016-06-30 15:11 | PN ---
Date/Time of Note Date/Time of Note DATE: 06/30/16 TIME: 14:55 Assessment/Plan VTE Prophylaxis VTE Prophylaxis Intervention: SCD's Lines/Catheters [facility] Peripheral IV Assessment/Plan Chief Complaint/Hosp Course 1. Attempted suicide with Tylenol overdose Liver enzymes are trending down GI consultation appreciated Continue Mucomyst Patient denying suicidal ideation at this time, discontinue one-to-one sitter 2. History of schizoaffective disorder Telemetry psych evaluation appreciated with recommendations for psychiatric medications given, recommended medications started today millinery worker consultation 3. Hypokalemia- repleted 4. Thrombocytopenia-resolved Monitor Prophylaxis: Sequential compression devices Problems: Subjective 24 Hr Interval Summary Constitutional: no complaints Exam/Review of Systems Vital Signs Vitals Vital Signs Date Time Temp Pulse Resp B/P Pulse Ox O2 Delivery O2 Flow Rate FiO2 06/30/16 12:32 69 06/30/16 11:53 98.0 18 122/74 97 06/28/16 21:10 Room Air Intake and Output 06/29/16 06/29/16 06/30/16 15:00 23:00 07:00 Intake Total 2250 ml 1000 ml Output Total 1200 ml 800 ml Balance 1050 ml 200 ml Exam Constitutional: alert Respiratory: clear to auscultation Cardiovascular: regular rate and rhythm Gastrointestinal: soft, No distended Musculoskeletal: nl extremities to inspection Results Result Diagram: 06/30/16 0704 06/30/16 0704 Results 24 hrs Laboratory Tests Test 06/29/16 16:40 06/30/16 07:04 Prothrombin Time 14.7 H Prothrombin Time Ratio 1.1 INR International Normalized Ratio 1.15 Activated Partial Thromboplast Time 25.9 Total Bilirubin 0.1 L 0.3 Direct Bilirubin 0.00 0.00 Indirect Bilirubin 0.1 0.3 Aspartate Amino Transf (AST/SGOT) 331 H 181 H Alanine Aminotransferase (ALT/SGPT) 1939 H 1496 H White Blood Count 5.7 Red Blood Count 4.39 L Hemoglobin 12.4 L Hematocrit 38.6 L Mean Corpuscular Volume 87.9 Mean Corpuscular Hemoglobin 28.2 L Mean Corpuscular Hemoglobin Concent 32.1 Red Cell Distribution Width 13.6 Platelet Count 140 Mean Platelet Volume 12.3 H Neutrophils % 69.7 Lymphocytes % 18.8 Monocytes % 9.8 Eosinophils % 1.1 Basophils % 0.2 Nucleated Red Blood Cells % 0.0 Neutrophils # 4.0 Lymphocytes # 1.1 Monocytes # 0.6 Eosinophils # 0.1 Basophils # 0.0 Nucleated Red Blood Cells # 0.0 Sodium Level 136 Potassium Level 3.8 Chloride Level 108 Carbon Dioxide Level 26 Anion Gap 6 L Blood Urea Nitrogen 16 Creatinine 0.55 L Glucose Level 105 Calcium Level 8.3 L Alkaline Phosphatase 57 Total Protein 5.5 L Albumin 3.0 L Globulin 2.50 Albumin/Globulin Ratio 1.20 Medications Medications Current Medications Acetylcysteine (Mucomyst) 4.9 gm Q4 PO Last administered on 06/30/16 13:50; Admin Dose 4.9 GM; Start 06/28/16 at 17:00; Stop 07/01/16 at 09:01 Ondansetron HCl (Zofran Inj) 4 mg Q6H PRN IV NAUSEA AND/OR VOMITING; Start at 17:00 Docusate Sodium (Colace) 100 mg Q12H PRN PO CONSTIPATION; Start 06/28/16 at 17: 00 Sertraline HCl (Zoloft) 50 mg DAILY PO Last administered on 06/30/16 10:42; Admin Dose 50 MG; Start 06/30/16 at 11:00 Aripiprazole (Abilify) 10 mg DAILY PO Last administered on 06/30/16 10:40; Admin Dose 10 MG; Start 06/30/16 at 11:00 Lamotrigine (Lamictal) 25 mg DAILY PO Last administered on 06/30/16 10:42; Admin Dose 25 MG; Start 06/30/16 at 11:00 Carbamazepine (Tegretol) 300 mg BID PO Last administered on 06/30/16 10:44; Admin Dose 300 MG; Start 06/30/16 at 11:00 BRITTNEY MICHAEL June 30, 2016 15:08
--- NOTE | 2016-06-30 16:14 | PN ---
Date/Time of Note Date/Time of Note DATE: 06/30/16 TIME: 16:12 Assessment/Plan VTE Prophylaxis VTE Prophylaxis Intervention: ambulation, SCD's Lines/Catheters IV Catheter Type (from Nrsg): Peripheral IV Assessment/Plan Assessment/Plan Assessment * Elevated transaminase Tylenol overdose Suicidal ideation Schizophrenia/Bipolar disorder Plan * monitor liver profile to include PT,PTT INR daily * continue present management Subjective 24 Hr Interval Summary Free Text/Dictation * Course reviewed with RN * patient seen and examined * Improved ALT,AST * no abdominal pain Exam/Review of Systems Vital Signs Vitals Vital Signs Date Time Temp Pulse Resp B/P Pulse Ox O2 Delivery O2 Flow Rate FiO2 06/30/16 16:09 76 06/30/16 15:56 98.1 18 129/72 96 06/28/16 21:10 Room Air Intake and Output 06/29/16 06/29/16 06/30/16 14:59 22:59 06:59 Intake Total 2250 ml 1000 ml Output Total 1200 ml 800 ml Balance 1050 ml 200 ml Exam Constitutional: alert, frail Neck: non-tender, supple Respiratory: clear to auscultation, normal air movement Cardiovascular: nl pulses, regular rate and rhythm Gastrointestinal: bowel sounds, nl liver, spleen, non-tender, soft Musculoskeletal: nl extremities to inspection Extremities: normal pulses Results Result Diagram: 06/30/16 0704 06/30/16 0704 Results 24 hrs Laboratory Tests Test 06/29/16 16:40 06/30/16 07:04 Prothrombin Time 14.7 H Prothrombin Time Ratio 1.1 INR International Normalized Ratio 1.15 Activated Partial Thromboplast Time 25.9 Total Bilirubin 0.1 L 0.3 Direct Bilirubin 0.00 0.00 Indirect Bilirubin 0.1 0.3 Aspartate Amino Transf (AST/SGOT) 331 H 181 H Alanine Aminotransferase (ALT/SGPT) 1939 H 1496 H White Blood Count 5.7 Red Blood Count 4.39 L Hemoglobin 12.4 L Hematocrit 38.6 L Mean Corpuscular Volume 87.9 Mean Corpuscular Hemoglobin 28.2 L Mean Corpuscular Hemoglobin Concent 32.1 Red Cell Distribution Width 13.6 Platelet Count 140 Mean Platelet Volume 12.3 H Neutrophils % 69.7 Lymphocytes % 18.8 Monocytes % 9.8 Eosinophils % 1.1 Basophils % 0.2 Nucleated Red Blood Cells % 0.0 Neutrophils # 4.0 Lymphocytes # 1.1 Monocytes # 0.6 Eosinophils # 0.1 Basophils # 0.0 Nucleated Red Blood Cells # 0.0 Sodium Level 136 Potassium Level 3.8 Chloride Level 108 Carbon Dioxide Level 26 Anion Gap 6 L Blood Urea Nitrogen 16 Creatinine 0.55 L Glucose Level 105 Calcium Level 8.3 L Alkaline Phosphatase 57 Total Protein 5.5 L Albumin 3.0 L Globulin 2.50 Albumin/Globulin Ratio 1.20 Medications Medications Current Medications Acetylcysteine (Mucomyst) 4.9 gm Q4 PO Last administered on 06/30/16 13:50; Admin Dose 4.9 GM; Start 06/28/16 at 17:00; Stop 07/01/16 at 09:01 Ondansetron HCl (Zofran Inj) 4 mg Q6H PRN IV NAUSEA AND/OR VOMITING; Start at 17:00 Docusate Sodium (Colace) 100 mg Q12H PRN PO CONSTIPATION; Start 06/28/16 at 17: 00 Sertraline HCl (Zoloft) 50 mg DAILY PO Last administered on 06/30/16 10:42; Admin Dose 50 MG; Start 06/30/16 at 11:00 Aripiprazole (Abilify) 10 mg DAILY PO Last administered on 06/30/16 10:40; Admin Dose 10 MG; Start 06/30/16 at 11:00 Lamotrigine (Lamictal) 25 mg DAILY PO Last administered on 06/30/16 10:42; Admin Dose 25 MG; Start 06/30/16 at 11:00 Carbamazepine (Tegretol) 300 mg BID PO Last administered on 06/30/16 10:44; Admin Dose 300 MG; Start 06/30/16 at 11:00 ROX SEQUEIRA MD June 30, 2016 16:13
[2016-06-30 17:27] LABS: INR 1.15; PROTIME 14.7 Sec (12.2-14.2); PT RATIO 1.1
[2016-06-30 17:48] LABS: BILIRUBIN,INDIRECT 0.2 mg/dl (0-1.1); BILIRUBIN,TOTAL 0.2 mg/dl (0.2-1.3)
[2016-06-30] MEDS ORDERED: CARBAMAZEPINE 200 MG TAB PO SCH (21:00)
[2016-07-01] VITALS (12 sets, daily range): BP systolic 133–155; BP diastolic 71–87; PULSE 68–89; RESP 16–18
[2016-07-01] MEDS: ACETYLCYSTEINE 20% 30 ML VIAL PO SCH ×5 (01:32→20:42)
[2016-07-01 08:09] LABS: ALBUMIN 3.5 g/dl (3.3-4.9); ALBUMIN/GLOBULIN RATIO 1.2; BILIRUBIN,INDIRECT 0.3 mg/dl (0-1.1); BILIRUBIN,TOTAL 0.3 mg/dl (0.2-1.3); CALCIUM 8.8 mg/dl (8.4-10.2); CREATININE 0.61 mg/dl (0.61-1.24); POTASSIUM 3.5 mmol/L (3.5-5.1); TOTAL PROTEIN 6.4 g/dl (6.1-8.1)
[2016-07-01] MEDS: SERTRALINE 50 MG TAB PO SCH (08:36)
[2016-07-01] MEDS: carBAMAZepine CHEW 100 MG CHEW PO SCH ×2 (08:36→20:30)
[2016-07-01] MEDS: LAMOTRIGINE 25 MG TAB PO SCH (08:36)
[2016-07-01] MEDS: ARIPIPRAZOLE 10 MG TAB PO SCH (08:36)
[2016-07-01] MEDS ORDERED: ACETYLCYSTEINE 20% 4 ML VIAL PO SCH (16:00)
[2016-07-01] MEDS ORDERED: ACETYLCYSTEINE 20% 30 ML VIAL PO SCH ×2 (16:00→17:00)
--- NOTE | 2016-07-01 16:27 | PN ---
Date/Time of Note Date/Time of Note DATE: 07/01/16 TIME: 16:26 Assessment/Plan VTE Prophylaxis VTE Prophylaxis Intervention: SCD's Lines/Catheters IV [facility] Saline Lock Assessment/Plan Chief Complaint/Hosp Course 1. Attempted suicide with Tylenol overdose Liver enzymes are trending down GI consultation appreciated Continue Mucomyst Patient denying suicidal ideation at this time, continue one-to-one sitter PET team eval when Mucomyst course completed LFTs have continued to trend down 2. History of schizoaffective disorder Telemetry psych evaluation appreciated with recommendations for psychiatric medications given, recommended medications have been started shine worker consultation appreciated 3. Hypokalemia- repleted 4. Thrombocytopenia-resolved Monitor Prophylaxis: Sequential compression devices Problems: Subjective 24 Hr Interval Summary Constitutional: no complaints Exam/Review of Systems Vital Signs Vitals Vital Signs Date Time Temp Pulse Resp B/P Pulse Ox O2 Delivery O2 Flow Rate FiO2 07/01/16 16:17 97.3 95 18 155/82 96 06/28/16 21:10 Room Air Intake and Output 06/30/16 06/30/16 07/01/16 15:00 23:00 07:00 Intake Total 550 ml Balance 550 ml Exam Constitutional: alert Respiratory: clear to auscultation Cardiovascular: regular rate and rhythm Gastrointestinal: soft, No distended Musculoskeletal: nl extremities to inspection Results Result Diagram: 06/30/16 0704 07/01/16 0700 Results 24 hrs Laboratory Tests Test 06/30/16 16:58 07/01/16 07:00 Prothrombin Time 14.7 H Prothrombin Time Ratio 1.1 INR International Normalized Ratio 1.15 Activated Partial Thromboplast Time 25.0 Total Bilirubin 0.2 0.3 Direct Bilirubin 0.00 0.00 Indirect Bilirubin 0.2 0.3 Aspartate Amino Transf (AST/SGOT) 152 H 118 H Alanine Aminotransferase (ALT/SGPT) 1314 H 1225 H Alkaline Phosphatase 65 70 Sodium Level 137 Potassium Level 3.5 Chloride Level 103 Carbon Dioxide Level 27 Anion Gap 11 Blood Urea Nitrogen 10 Creatinine 0.61 Glucose Level 107 Calcium Level 8.8 Total Protein 6.4 Albumin 3.5 Globulin 2.90 Albumin/Globulin Ratio 1.20 Medications Medications Current Medications Ondansetron HCl (Zofran Inj) 4 mg Q6H PRN IV NAUSEA AND/OR VOMITING; Start at 17:00 Docusate Sodium (Colace) 100 mg Q12H PRN PO CONSTIPATION; Start 06/28/16 at 17: 00 Sertraline HCl (Zoloft) 50 mg DAILY PO Last administered on 07/01/16 08:36; Admin Dose 50 MG; Start 06/30/16 at 11:00 Aripiprazole (Abilify) 10 mg DAILY PO Last administered on 07/01/16 08:36; Admin Dose 10 MG; Start 06/30/16 at 11:00 Lamotrigine (Lamictal) 25 mg DAILY PO Last administered on 07/01/16 08:36; Admin Dose 25 MG; Start 06/30/16 at 11:00 Carbamazepine (Tegretol) 300 mg BID PO Last administered on 07/01/16 08:36; Admin Dose 300 MG; Start 06/30/16 at 11:00 Acetylcysteine (Mucomyst) 4.9 gm Q4H PO ; Start 07/01/16 at 17:00; Stop at 01:01 BRITTNEY MICHAEL July 01, 2016 16:27
--- NOTE | 2016-07-01 17:19 | CONS ---
Date/Time of Note Date/Time of Note DATE: 07/01/16 TIME: 17:18 Assessment/Plan Assessment/Plan Additional Assessment/Plan Elevated transaminase * Secondary to Tylenol overdose Suicidal ideation Schizophrenia/Bipolar disorder Plan: * monitor liver profile to include PT,PTT INR daily * continue present management * Further recommendations depend on clinical course * Patient seen in collaboration with Dr. Begum Consultation Date/Type/Reason Admit Date/Time June 28, 2016 at 15:57 Initial Consult Date 06/28/16 Type of Consultation: gastroenerology Referring Provider: AGUILAR BRADLEY Exam/Review of Systems Vital Signs Vitals Vital Signs Date Time Temp Pulse Resp B/P Pulse Ox O2 Delivery O2 Flow Rate FiO2 07/01/16 16:17 97.3 95 18 155/82 96 06/28/16 21:10 Room Air Intake and Output 06/30/16 06/30/16 07/01/16 15:00 23:00 07:00 Intake Total 550 ml Balance 550 ml Results Result Diagram: 06/30/16 0704 07/01/16 0700 Results 24 hrs Laboratory Tests Test 07/01/16 07:00 Sodium Level 137 Potassium Level 3.5 Chloride Level 103 Carbon Dioxide Level 27 Anion Gap 11 Blood Urea Nitrogen 10 Creatinine 0.61 Glucose Level 107 Calcium Level 8.8 Total Bilirubin 0.3 Direct Bilirubin 0.00 Indirect Bilirubin 0.3 Aspartate Amino Transf (AST/SGOT) 118 H Alanine Aminotransferase (ALT/SGPT) 1225 H Alkaline Phosphatase 70 Total Protein 6.4 Albumin 3.5 Globulin 2.90 Albumin/Globulin Ratio 1.20 Medications Medications Current Medications Ondansetron HCl (Zofran Inj) 4 mg Q6H PRN IV NAUSEA AND/OR VOMITING; Start at 17:00 Docusate Sodium (Colace) 100 mg Q12H PRN PO CONSTIPATION; Start 06/28/16 at 17: 00 Sertraline HCl (Zoloft) 50 mg DAILY PO Last administered on 07/01/16 08:36; Admin Dose 50 MG; Start 06/30/16 at 11:00 Aripiprazole (Abilify) 10 mg DAILY PO Last administered on 07/01/16 08:36; Admin Dose 10 MG; Start 06/30/16 at 11:00 Lamotrigine (Lamictal) 25 mg DAILY PO Last administered on 07/01/16 08:36; Admin Dose 25 MG; Start 06/30/16 at 11:00 Carbamazepine (Tegretol) 300 mg BID PO Last administered on 07/01/16 08:36; Admin Dose 300 MG; Start 06/30/16 at 11:00 Acetylcysteine (Mucomyst) 4.9 gm Q4H PO ; Start 07/01/16 at 17:00; Stop at 01:01 BRENDA CORTEZ July 01, 2016 17:19
[2016-07-02] VITALS (8 sets, daily range): BP systolic 137–153; BP diastolic 78–88; PULSE 71–85; RESP 16–18
[2016-07-02] MEDS: ACETYLCYSTEINE 20% 30 ML VIAL PO SCH (00:44)
[2016-07-02 08:08] LABS: ALBUMIN 3.6 g/dl (3.3-4.9)
[2016-07-02 08:09] LABS: POTASSIUM 3.6 mmol/L (3.5-5.1)
[2016-07-02] MEDS: LAMOTRIGINE 25 MG TAB PO SCH (08:10)
[2016-07-02] MEDS: SERTRALINE 50 MG TAB PO SCH (08:10)
[2016-07-02] MEDS: carBAMAZepine CHEW 100 MG CHEW PO SCH ×2 (08:10→20:59)
[2016-07-02] MEDS: ARIPIPRAZOLE 10 MG TAB PO SCH (08:10)
[2016-07-02 08:11] LABS: ALBUMIN/GLOBULIN RATIO 1.24; BILIRUBIN,INDIRECT 0.3 mg/dl (0-1.1); BILIRUBIN,TOTAL 0.3 mg/dl (0.2-1.3); CALCIUM 8.9 mg/dl (8.4-10.2); CREATININE 0.61 mg/dl (0.61-1.24); TOTAL PROTEIN 6.5 g/dl (6.1-8.1)
--- NOTE | 2016-07-02 12:51 | PN ---
Date/Time of Note Date/Time of Note DATE: 07/02/16 TIME: 12:50 Assessment/Plan VTE Prophylaxis VTE Prophylaxis Intervention: ambulation Lines/Catheters IV Catheter Type (from Nrsg): Saline Lock Assessment/Plan Assessment/Plan Assessment * Elevated transaminase Tylenol overdose Suicidal ideation Schizophrenia/Bipolar disorder Plan * monitor liver profile to include PT,PTT INR daily * continue present management Subjective 24 Hr Interval Summary Free Text/Dictation * Course reviewed with RN * Patient seen and examined * Improving ALT,AST * No abdominal pain Exam/Review of Systems Vital Signs Vitals Vital Signs Date Time Temp Pulse Resp B/P Pulse Ox O2 Delivery O2 Flow Rate FiO2 07/02/16 12:10 82 07/02/16 04:00 98.0 18 153/88 98 06/28/16 21:10 Room Air Intake and Output 07/01/16 07/01/16 07/02/16 15:00 23:00 07:00 Intake Total 900 ml 600 ml Balance 900 ml 600 ml Exam Constitutional: alert, frail Neck: non-tender, supple Cardiovascular: nl pulses, regular rate and rhythm Gastrointestinal: nl liver, spleen, soft Musculoskeletal: nl extremities to inspection Extremities: normal pulses Results Result Diagram: 06/30/16 0704 07/02/16 0627 Results 24 hrs Laboratory Tests Test 07/02/16 06:27 Sodium Level 138 Potassium Level 3.6 Chloride Level 100 Carbon Dioxide Level 27 Anion Gap 15 Blood Urea Nitrogen 10 Creatinine 0.61 Glucose Level 95 Calcium Level 8.9 Total Bilirubin 0.3 Direct Bilirubin 0.00 Indirect Bilirubin 0.3 Aspartate Amino Transf (AST/SGOT) 91 H Alanine Aminotransferase (ALT/SGPT) 942 H Alkaline Phosphatase 69 Total Protein 6.5 Albumin 3.6 Globulin 2.90 Albumin/Globulin Ratio 1.24 Medications Medications Current Medications Ondansetron HCl (Zofran Inj) 4 mg Q6H PRN IV NAUSEA AND/OR VOMITING; Start at 17:00 Docusate Sodium (Colace) 100 mg Q12H PRN PO CONSTIPATION; Start 06/28/16 at 17: 00 Sertraline HCl (Zoloft) 50 mg DAILY PO Last administered on 07/02/16 08:10; Admin Dose 50 MG; Start 06/30/16 at 11:00 Aripiprazole (Abilify) 10 mg DAILY PO Last administered on 07/02/16 08:10; Admin Dose 10 MG; Start 06/30/16 at 11:00 Lamotrigine (Lamictal) 25 mg DAILY PO Last administered on 07/02/16 08:10; Admin Dose 25 MG; Start 06/30/16 at 11:00 Carbamazepine (Tegretol) 300 mg BID PO Last administered on 07/02/16 08:10; Admin Dose 300 MG; Start 06/30/16 at 11:00 ROX SEQUEIRA MD July 02, 2016 12:51
--- NOTE | 2016-07-02 14:02 | PN ---
Date/Time of Note Date/Time of Note DATE: 07/02/16 TIME: 14:00 Assessment/Plan VTE Prophylaxis VTE Prophylaxis Intervention: SCD's Lines/Catheters IV Catheter Type (from Nrs): Saline Lock Assessment/Plan Chief Complaint/Hosp Course 1. Attempted suicide with Tylenol overdose Liver enzymes are trending down GI consultation appreciated Status post Mucomyst Patient denying suicidal ideation at this time, continue one-to-one sitter PET team eval as patient is now status post Mucomyst and LFTs have trended down , patient is medically stable for transfer to a psych facility 2. 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 Hypokalemia- repleted 4. Thrombocytopenia-resolved Monitor Prophylaxis: Sequential compression devices Problems: Subjective 24 Hr Interval Summary Constitutional: no complaints Exam/Review of Systems Vital Signs Vitals Vital Signs Date Time Temp Pulse Resp B/P Pulse Ox O2 Delivery O2 Flow Rate FiO2 07/02/16 12:10 82 07/02/16 04:00 98.0 18 153/88 98 06/28/16 21:10 Room Air Intake and Output 07/01/16 07/01/16 07/02/16 15:00 23:00 07:00 Intake Total 900 ml 600 ml Balance 900 ml 600 ml Exam Constitutional: alert Respiratory: clear to auscultation Cardiovascular: regular rate and rhythm Gastrointestinal: soft, No distended Musculoskeletal: nl extremities to inspection Results Result Diagram: 06/30/16 0704 07/02/16 0627 Results 24 hrs Laboratory Tests Test 07/02/16 06:27 Sodium Level 138 Potassium Level 3.6 Chloride Level 100 Carbon Dioxide Level 27 Anion Gap 15 Blood Urea Nitrogen 10 Creatinine 0.61 Glucose Level 95 Calcium Level 8.9 Total Bilirubin 0.3 Direct Bilirubin 0.00 Indirect Bilirubin 0.3 Aspartate Amino Transf (AST/SGOT) 91 H Alanine Aminotransferase (ALT/SGPT) 942 H Alkaline Phosphatase 69 Total Protein 6.5 Albumin 3.6 Globulin 2.90 Albumin/Globulin Ratio 1.24 Medications Medications Current Medications Ondansetron HCl (Zofran Inj) 4 mg Q6H PRN IV NAUSEA AND/OR VOMITING; Start at 17:00 Docusate Sodium (Colace) 100 mg Q12H PRN PO CONSTIPATION; Start 06/28/16 at 17: 00 Sertraline HCl (Zoloft) 50 mg DAILY PO Last administered on 07/02/16 08:10; Admin Dose 50 MG; Start 06/30/16 at 11:00 Aripiprazole (Abilify) 10 mg DAILY PO Last administered on 07/02/16 08:10; Admin Dose 10 MG; Start 06/30/16 at 11:00 Lamotrigine (Lamictal) 25 mg DAILY PO Last administered on 07/02/16 08:10; Admin Dose 25 MG; Start 06/30/16 at 11:00 Carbamazepine (Tegretol) 300 mg BID PO Last administered on 07/02/16 08:10; Admin Dose 300 MG; Start 06/30/16 at 11:00 BRITTNEY MICHAEL July 02, 2016 14:02
[2016-07-03 06:55] LABS: ALBUMIN 3.2 g/dl (3.3-4.9)
[2016-07-03 06:56] LABS: POTASSIUM 3.4 mmol/L (3.5-5.1)
[2016-07-03 06:58] LABS: ALBUMIN/GLOBULIN RATIO 1.14; BILIRUBIN,INDIRECT 0.3 mg/dl (0-1.1); BILIRUBIN,TOTAL 0.3 mg/dl (0.2-1.3); CREATININE 0.63 mg/dl (0.61-1.24)
[2016-07-03 06:59] LABS: CALCIUM 8.7 mg/dl (8.4-10.2)
[2016-07-03 07:18] VITALS: BP 134/78; RESP 17
[2016-07-03] MEDS: LAMOTRIGINE 25 MG TAB PO SCH (09:14)
[2016-07-03] MEDS: SERTRALINE 50 MG TAB PO SCH (09:14)
[2016-07-03] MEDS: carBAMAZepine CHEW 100 MG CHEW PO SCH ×2 (09:15→20:00)
[2016-07-03] MEDS: ARIPIPRAZOLE 10 MG TAB PO SCH (12:06)
--- NOTE | 2016-07-03 12:20 | PN ---
Date/Time of Note Date/Time of Note DATE: 07/03/16 TIME: 12:18 Assessment/Plan VTE Prophylaxis VTE Prophylaxis Intervention: SCD's Lines/Catheters IV Catheter Type (from Nrs): Saline Lock Urinary Cath still in place: No Assessment/Plan Assessment/Plan Elevated transaminase Tylenol overdose Suicidal ideation Schizophrenia/Bipolar disorder Plan * monitor liver profile to include PT,PTT INR daily * continue present management Subjective 24 Hr Interval Summary Free Text/Dictation * Course reviewed with RN * Patient seen and examined * ALT/AST improving * No abdominal pain Exam/Review of Systems Vital Signs Vitals Vital Signs Date Time Temp Pulse Resp B/P Pulse Ox O2 Delivery O2 Flow Rate FiO2 07/03/16 07:18 97.6 69 17 134/78 96 07/02/16 23:30 Room Air Intake and Output 07/02/16 07/02/16 07/03/16 15:00 23:00 07:00 Intake Total 800 ml 400 ml Balance 800 ml 400 ml Exam Constitutional: alert, frail Head: atraumatic, normocephalic Neck: non-tender, supple Respiratory: clear to auscultation, normal air movement Cardiovascular: nl pulses, regular rate and rhythm Gastrointestinal: nl liver, spleen, non-tender, soft Musculoskeletal: nl extremities to inspection, nl gait and stance Extremities: normal pulses Neurological: nl speech Skin: nl turgor, No rash or lesions Results Result Diagram: 06/30/16 0704 07/03/16 0514 Results 24 hrs Laboratory Tests Test 07/03/16 05:14 Sodium Level 139 Potassium Level 3.4 L Chloride Level 108 Carbon Dioxide Level 30 Anion Gap 4 #L Blood Urea Nitrogen 10 Creatinine 0.63 Glucose Level 89 Calcium Level 8.7 Total Bilirubin 0.3 Direct Bilirubin 0.00 Indirect Bilirubin 0.3 Aspartate Amino Transf (AST/SGOT) 64 H Alanine Aminotransferase (ALT/SGPT) 674 H Alkaline Phosphatase 64 Total Protein 6.0 L Albumin 3.2 L Globulin 2.80 Albumin/Globulin Ratio 1.14 Medications Medications Current Medications Ondansetron HCl (Zofran Inj) 4 mg Q6H PRN IV NAUSEA AND/OR VOMITING; Start at 17:00 Docusate Sodium (Colace) 100 mg Q12H PRN PO CONSTIPATION; Start 06/28/16 at 17: 00 Sertraline HCl (Zoloft) 50 mg DAILY PO Last administered on 07/03/16 09:14; Admin Dose 50 MG; Start 06/30/16 at 11:00 Aripiprazole (Abilify) 10 mg DAILY PO Last administered on 07/03/16 12:06; Admin Dose 10 MG; Start 06/30/16 at 11:00 Lamotrigine (Lamictal) 25 mg DAILY PO Last administered on 07/03/16 09:14; Admin Dose 25 MG; Start 06/30/16 at 11:00 Carbamazepine (Tegretol) 300 mg BID PO Last administered on 07/03/16 09:15; Admin Dose 300 MG; Start 06/30/16 at 11:00 ROX SEQUEIRA MD July 03, 2016 12:20
[2016-07-03] MEDS ORDERED: POTASSIUM CHLORIDE (SR) 20 MEQ TAB PO STA (18:43)
--- NOTE | 2016-07-03 18:43 | PN ---
Date/Time of Note Date/Time of Note DATE: 07/03/16 TIME: 18:42 Assessment/Plan VTE Prophylaxis VTE Prophylaxis Intervention: SCD's Lines/Catheters IV [facility]from [facility] Saline Lock Urinary Cath still in place: No Assessment/Plan Chief Complaint/Hosp Course 1. Attempted suicide with Tylenol overdose Liver enzymes are trending down GI consultation appreciated Status post Mucomyst Patient denying suicidal ideation at this time, continue one-to-one sitter PET team eval as patient is now status post Mucomyst and LFTs have trended down , patient is medically stable for transfer to a psych facility 2. 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 Hypokalemia- repleted 4. Thrombocytopenia-resolved Monitor Prophylaxis: Sequential compression devices Problems: Subjective 24 Hr Interval Summary Constitutional: no complaints Exam/Review of Systems Vital Signs Vitals Vital Signs Date Time Temp Pulse Resp B/P Pulse Ox O2 Delivery O2 Flow Rate FiO2 07/03/16 07:18 97.6 69 17 134/78 96 07/02/16 23:30 Room Air Intake and Output 07/02/16 07/02/16 07/03/16 15:00 23:00 07:00 Intake Total 800 ml 400 ml Balance 800 ml 400 ml Exam Constitutional: alert Respiratory: clear to auscultation Cardiovascular: regular rate and rhythm Gastrointestinal: soft, No distended Musculoskeletal: nl extremities to inspection Results Result Diagram: 06/30/16 0704 07/03/16 0514 Results 24 hrs Laboratory Tests Test 07/03/16 05:14 Sodium Level 139 Potassium Level 3.4 L Chloride Level 108 Carbon Dioxide Level 30 Anion Gap 4 #L Blood Urea Nitrogen 10 Creatinine 0.63 Glucose Level 89 Calcium Level 8.7 Total Bilirubin 0.3 Direct Bilirubin 0.00 Indirect Bilirubin 0.3 Aspartate Amino Transf (AST/SGOT) 64 H Alanine Aminotransferase (ALT/SGPT) 674 H Alkaline Phosphatase 64 Total Protein 6.0 L Albumin 3.2 L Globulin 2.80 Albumin/Globulin Ratio 1.14 Medications Medications Current Medications Ondansetron HCl (Zofran Inj) 4 mg Q6H PRN IV NAUSEA AND/OR VOMITING; Start at 17:00 Docusate Sodium (Colace) 100 mg Q12H PRN PO CONSTIPATION; Start 06/28/16 at 17: 00 Sertraline HCl (Zoloft) 50 mg DAILY PO Last administered on 07/03/16 09:14; Admin Dose 50 MG; Start 06/30/16 at 11:00 Aripiprazole (Abilify) 10 mg DAILY PO Last administered on 07/03/16 12:06; Admin Dose 10 MG; Start 06/30/16 at 11:00 Lamotrigine (Lamictal) 25 mg DAILY PO Last administered on 07/03/16 09:14; Admin Dose 25 MG; Start 06/30/16 at 11:00 Carbamazepine (Tegretol) 300 mg BID PO Last administered on 07/03/16 09:15; Admin Dose 300 MG; Start 06/30/16 at 11:00 BRITTNEY MICHAEL July 03, 2016 18:43
[2016-07-03 19:18] VITALS: BP 144/76; RESP 19
[2016-07-04] MEDS: SERTRALINE 50 MG TAB PO SCH (08:06)
[2016-07-04] MEDS: LAMOTRIGINE 25 MG TAB PO SCH (08:06)
[2016-07-04] MEDS: carBAMAZepine CHEW 100 MG CHEW PO SCH ×2 (08:06→20:21)
[2016-07-04] MEDS: ARIPIPRAZOLE 10 MG TAB PO SCH (08:06)
[2016-07-04 08:13] VITALS: BP 162/92; PULSE 66; RESP 16
[2016-07-04 09:08] LABS: ALBUMIN 3.7 g/dl (3.3-4.9)
[2016-07-04 09:09] LABS: POTASSIUM 3.8 mmol/L (3.5-5.1)
[2016-07-04 09:11] LABS: ALBUMIN/GLOBULIN RATIO 1.27; BILIRUBIN,INDIRECT 0.1 mg/dl (0-1.1); BILIRUBIN,TOTAL 0.1 mg/dl (0.2-1.3); CREATININE 0.66 mg/dl (0.61-1.24); TOTAL PROTEIN 6.6 g/dl (6.1-8.1)
[2016-07-04 09:12] LABS: CALCIUM 9.4 mg/dl (8.4-10.2); MAGNESIUM 1.8 mg/dl (1.7-2.5)
[2016-07-04 10:21] VITALS: BP 144/82; PULSE 87
--- NOTE | 2016-07-04 13:11 | PN ---
Date/Time of Note Date/Time of Note DATE: 07/04/16 TIME: 13:09 Assessment/Plan VTE Prophylaxis VTE Prophylaxis Intervention: SCD's Lines/Catheters IV Catheter Type (from Nrs): Saline Lock Urinary Cath still in place: No Assessment/Plan Assessment/Plan Elevated transaminase Tylenol overdose Suicidal ideation Schizophrenia/Bipolar disorder Plan * monitor liver profile to include PT,PTT INR daily * continue present management Subjective 24 Hr Interval Summary Free Text/Dictation * Course reviewed with RN * Patient seen and examined * ALT,AST improving * No abdominal pain Exam/Review of Systems Vital Signs Vitals Vital Signs Date Time Temp Pulse Resp B/P Pulse Ox O2 Delivery O2 Flow Rate FiO2 07/04/16 10:21 87 144/82 07/04/16 08:13 97.8 16 98 07/02/16 23:30 Room Air Intake and Output 07/03/16 07/03/16 07/04/16 15:00 23:00 07:00 Intake Total 2180 ml 2380 ml Balance 2180 ml 2380 ml Exam Constitutional: alert, frail Neck: supple Respiratory: clear to auscultation, diminished breath sounds, normal air movement Cardiovascular: nl pulses, regular rate and rhythm Gastrointestinal: non-tender, soft Musculoskeletal: nl extremities to inspection Extremities: normal pulses Neurological: nl speech Skin: nl turgor Results Result Diagram: 06/30/16 0704 07/04/16 0755 Results 24 hrs Laboratory Tests Test 07/04/16 07:55 Sodium Level 139 Potassium Level 3.8 Chloride Level 105 Carbon Dioxide Level 30 Anion Gap 8 Blood Urea Nitrogen 11 Creatinine 0.66 Glucose Level 92 Calcium Level 9.4 Magnesium Level 1.8 Total Bilirubin 0.1 L Direct Bilirubin 0.00 Indirect Bilirubin 0.1 Aspartate Amino Transf (AST/SGOT) 58 H Alanine Aminotransferase (ALT/SGPT) 580 H Alkaline Phosphatase 80 Total Protein 6.6 Albumin 3.7 Globulin 2.90 Albumin/Globulin Ratio 1.27 Medications Medications Current Medications Ondansetron HCl (Zofran Inj) 4 mg Q6H PRN IV NAUSEA AND/OR VOMITING; Start at 17:00 Docusate Sodium (Colace) 100 mg Q12H PRN PO CONSTIPATION; Start 06/28/16 at 17: 00 Sertraline HCl (Zoloft) 50 mg DAILY PO Last administered on 07/04/16t 08:06; Admin Dose 50 MG; Start 06/30/16 at 11:00 Aripiprazole (Abilify) 10 mg DAILY PO Last administered on 07/04/16 08:06; Admin Dose 10 MG; Start 06/30/16 at 11:00 Lamotrigine (Lamictal) 25 mg DAILY PO Last administered on 07/04/16 08:06; Admin Dose 25 MG; Start 06/30/16 at 11:00 Carbamazepine (Tegretol) 300 mg BID PO Last administered on 07/04/16 08:06; Admin Dose 300 MG; Start 06/30/16 at 11:00 ROX SEQUEIRA MD July 04, 2016 13:11
--- NOTE | 2016-07-04 17:04 | PN ---
Date/Time of Note Date/Time of Note DATE: 07/04/16 TIME: 16:57 Assessment/Plan VTE Prophylaxis VTE Prophylaxis Intervention: SCD's Lines/Catheters IV [facility] Type (from [facility] Saline Lock Urinary Cath still in place: No Assessment/Plan Assessment/Plan 1. Attempted suicide with Tylenol overdose, awaiting for PET evaluation, on 1 to 1 sitter 2. Acute liver injury from tylenol, improving LFTs 3. History of schizoaffective disorder 4. Thrombocytopenia-resolved 5. Prophylaxis: Sequential compression devices Subjective 24 Hr Interval Summary Free Text/Dictation no complaint Exam/Review of Systems Vital Signs Vitals Vital Signs Date Time Temp Pulse Resp B/P Pulse Ox O2 Delivery O2 Flow Rate FiO2 07/04/16 10:21 87 144/82 07/04/16 08:13 97.8 16 98 07/02/16 23:30 Room Air Intake and Output 07/03/16 07/03/16 07/04/16 15:00 23:00 07:00 Intake Total 2180 ml 2380 ml Balance 2180 ml 2380 ml Exam Constitutional: alert, oriented, well developed Head: atraumatic, normocephalic Eyes: EOMI, PERRL, nl conjunctiva, nl lids ENMT: nl external ears & nose, nl lips & teeth, nl nasal mucosa & septum Neck: non-tender, supple Respiratory: clear to auscultation, normal air movement, No congested cough, No crackles/rales, No diminished breath sounds, No intercostal retraction, No labored breathing, No other, No respirations, No tactile fremitus, No wheezing Cardiovascular: nl pulses, regular rate and rhythm, No S3, No S4, No bruits, No diastolic murmur, No edema, No gallop, No irregular rhythm, No jugular venous distention (JVD), No murmurs/extra sounds, No other, No rub, No systolic murmur Gastrointestinal: nl liver, spleen, non-tender, soft, No ascites, No bowel sounds, No distended, No firm, No hepatomegaly, No mass , No other, No rebound or guarding, No splenomegaly, No surgical scars, No tender Musculoskeletal: nl extremities to inspection Extremities: normal pulses, No calf tenderness, No clubbing, No cyanosis, No edema, No other, No palpable cord, No pitting pedal edema, No tenderness 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, nl mental status, nl speech, nl strength Skin: nl turgor Lymph: nl lymph nodes Results Result Diagram: 06/30/16 0704 07/04/16 0755 Results 24 hrs Laboratory Tests Test 07/04/16 07:55 Sodium Level 139 Potassium Level 3.8 Chloride Level 105 Carbon Dioxide Level 30 Anion Gap 8 Blood Urea Nitrogen 11 Creatinine 0.66 Glucose Level 92 Calcium Level 9.4 Magnesium Level 1.8 Total Bilirubin 0.1 L Direct Bilirubin 0.00 Indirect Bilirubin 0.1 Aspartate Amino Transf (AST/SGOT) 58 H Alanine Aminotransferase (ALT/SGPT) 580 H Alkaline Phosphatase 80 Total Protein 6.6 Albumin 3.7 Globulin 2.90 Albumin/Globulin Ratio 1.27 Medications Medications Current Medications Ondansetron HCl (Zofran Inj) 4 mg Q6H PRN IV NAUSEA AND/OR VOMITING; Start at 17:00 Docusate Sodium (Colace) 100 mg Q12H PRN PO CONSTIPATION; Start 06/28/16 at 17: 00 Sertraline HCl (Zoloft) 50 mg DAILY PO Last administered on 07/04/16 08:06; Admin Dose 50 MG; Start 06/30/16 at 11:00 Aripiprazole (Abilify) 10 mg DAILY PO Last administered on 07/04/16 08:06; Admin Dose 10 MG; Start 06/30/16 at 11:00 Lamotrigine (Lamictal) 25 mg DAILY PO Last administered on 07/04/16 08:06; Admin Dose 25 MG; Start 06/30/16 at 11:00 Carbamazepine (Tegretol) 300 mg BID PO Last administered on 07/04/16 08:06; Admin Dose 300 MG; Start 06/30/16 at 11:00 ORAL HOOD MD July 04, 2016 17:04
[2016-07-04 19:54] VITALS: BP 155/79; RESP 18
[2016-07-04 23:00] VITALS: BP 142/74
[2016-07-05 08:00] VITALS: BP 147/85; PULSE 67; RESP 16
[2016-07-05] MEDS: SERTRALINE 50 MG TAB PO SCH (08:48)
[2016-07-05] MEDS: carBAMAZepine CHEW 100 MG CHEW PO SCH ×2 (08:48→21:08)
[2016-07-05] MEDS: ARIPIPRAZOLE 10 MG TAB PO SCH (08:48)
[2016-07-05] MEDS: LAMOTRIGINE 25 MG TAB PO SCH (08:48)
--- NOTE | 2016-07-05 16:04 | PSY ---
Date/Time of Note Date/Time of Note DATE: 07/05/16 TIME: 15:53 Psychiatric Subjective Eval Consent Pt consented to telemedicine: Yes Subjective Evaluation Patient location: inpatient Chief Complaint: BIBA FOR INTENTIONAL TYLENOL OD 40 TABS.VERBALIZED SI Reason for consult: Suicidal ideation. History of present illness 61 year old male with past medical of schizophrenia,and bipolar disorder who was brought to emergency room for evaluation of overdose.He claimed to have taken 40 tablets of Tylenol 115 mg 48 hours ago.patient denies any nausea, vomiting,nor abdominal pain. Emergency room course revealed ALT 3710.AST 74143, alkaline phosphatase 70 Tylenol <10.Presently no abdominal pain nausea nor vomiting.Patient was also given acetylcysteine. Spoke with Dr Collazo: pt actually admitted it was a SA to me; now he denies he made a sucidal statemnt. He also admit to recent inpt for SI in May. A psychiatric consult was requested in light of his suicide attempt and statements of feeling suicidal. He denies suicidal ideation, intent or plan during the interview. He does report feeling that where he is living at this time is not safe. He shared that he has a history of OCD, as well as hording, and has purchased an excessive amount of books. He said that there is going to be a "wellness check" at his apartment. He states that he is preoccupied about cleanliness, and contamination. He also has problems with checking. He denies hallucinations however at times has complained of ideas of reference and delusions of grandeur. The major symptoms resulting in impairment or disability is his symptoms of depression and OCD. He was prescribed, Wellbutrin, Clonazepam and Abilify. He does not know the dose. Past Psychiatric History Psychiatric History: He was first diagnosed when he was 25. He said when he was 25 after a spiritual retreat, he demonstrated manic symptoms. He described his diaz as decreased need for sleep. Suicide attempt in December,. He said that when his father he had the delusion that he won the [employer] peace prize. He has had a history of ideas of reference. He was prescribed lithium in the past. Past Medical History Medical History: other (bipolar,schizophrenia), essential tremor. Past Surgical History Past Surgical Hx: no surgical history Family History Significant Family History: no pertinent family hx Social History Smoking Status: Former smoker, He is living alone. He is on SSDI. He has a BA in Math. He has a sister and a brother. They are in good health. Substance Use History: Denies any history of problems with substance use. Family History Cousin served in [place], has PTSD. Father was described a dysthymic. He committed suicide after being diagnosed with pancreatic cancer in 1988. Laboratory Tests Test 06/28/16 12:55 06/28/16 15:01 06/29/16 07:25 White Blood Count 5.610^3/ul 6.510^3/ul Red Blood Count 4.4510^6/ul 4.6810^6/ul Hemoglobin 12.6g/dl 13.5g/dl Hematocrit 39.7% 41.5% Mean Corpuscular Volume 89.2fl 88.7fl Mean Corpuscular Hemoglobin 28.3pg 28.8pg Mean Corpuscular Hemoglobin Concent 31.7g/dl 32.5g/dl Red Cell Distribution Width 13.6% 13.4% Platelet Count 19003^3/UL 18312^3/UL Mean Platelet Volume 12.3fl 12.6fl Neutrophils % 73.4% 75.5% Lymphocytes % 15.1% 14.5% Monocytes % 9.5% 8.5% Eosinophils % 1.6% 0.9% Basophils % 0.2% 0.3% Nucleated Red Blood Cells % 0.0/100WBC 0.0/100WBC Neutrophils # 4.110^3/ul 4.910^3/ul Lymphocytes # 0.810^3/ul 0.910^3/ul Monocytes # 0.510^3/ul 0.610^3/ul Eosinophils # 0.110^3/ul 0.110^3/ul Basophils # 0.010^3/ul 0.010^3/ul Nucleated Red Blood Cells # 0.010^3/ul 0.010^3/ul Prothrombin Time 16.8Sec Prothrombin Time Ratio 1.3 INR International Normalized Ratio 1.36 Activated Partial Thromboplast Time 29.2Sec Sodium Level 143mmol/L 139mmol/L Potassium Level 3.3mmol/L 3.2mmol/L Chloride Level 104mmol/L 108mmol/L Carbon Dioxide Level 30mmol/L 24mmol/L Anion Gap 12 10 Blood Urea Nitrogen 22mg/dl 17mg/dl Creatinine 0.68mg/dl 0.51mg/dl Glucose Level 97mg/dl 77mg/dl Calcium Level 8.4mg/dl 8.4mg/dl Total Bilirubin 0.4mg/dl 0.4mg/dl Direct Bilirubin 0.00mg/dl 0.00mg/dl Indirect Bilirubin 0.4mg/dl 0.4mg/dl Aspartate Amino Transf (AST/SGOT) 1431IU/L 604IU/L Alanine Aminotransferase (ALT/SGPT) 3741IU/L 2497IU/L Alkaline Phosphatase 65IU/L 63IU/L Total Protein 6.2g/dl 6.1g/dl Albumin 3.4g/dl 3.3g/dl Globulin 2.80g/dl 2.80g/dl Albumin/Globulin Ratio 1.21 1.17 Salicylates Level < 1.0mg/dl Acetaminophen Level < 10.0ug/ml Ethyl Alcohol Level < 10.0mg/dl Urine Color DK. YELLOW Urine Clarity CLEAR Urine pH 6.0 Urine Specific [place] >=1.030 Urine Ketones 40 Urine Nitrite NEGATIVE Urine Bilirubin 2+ Urine Ictotest NEGATIVE Urine Urobilinogen 4.0 E.U./dL Urine Leukocyte Esterase NEGATIVE Urine Microscopic RBC 0-2/HPF Urine Microscopic WBC 0-2/HPF Urine Squamous Epithelial Cells RARE Urine Bacteria FEW Urine Hemoglobin NEGATIVE Urine Glucose 0.1%% Urine Total Protein 1+ Urine Opiates Screen NEGATIVE Urine Barbiturates NEGATIVE Urine Amphetamines Screen NEGATIVE Urine Benzodiazepines Screen NEGATIVE Urine Cocaine Screen NEGATIVE Urine Cannabinoids NEGATIVE Hemoglobin A1c 5.4% Phosphorus Level 2.8mg/dl Magnesium Level 1.9mg/dl Hospitalization: Suicidal Attempt(s) Family History Cousin served in [place], has PTSD. Father was described a dysthymic. He committed suicide after being diagnosed with pancreatic cancer in 1988. Medical history Problems Medical Problems: (1) Acute hepatitis Status: Acute (2) Normocytic anemia Status: Acute (3) Overdose on Tylenol Status: Acute (4) Suicide attempt by substance overdose Status: Acute (5) Thrombocytopenia Status: Acute Allergies: Coded Allergies: No Known Allergy (Unverified , 06/28/16) Substance Abuse Substance use: No known substance abuse Social History Marital status: single (BA in [employer] from [facility] ) DPA/Conservatorship: No Occupation/Intermediate: disabled Psychiatric Objective Eval Review of Systems: Review of Systems: Not Applicable Mental Status Examination: Appearance: Groomed, Disheveled Eye Contact: Good Psychomotor Activity: Normal Behavior: Cooperative Speech: Clear AFFECT: Anxious Mood: Irritable Though Process: Linear, Circumstantial Thought Content: Normal Suicidal: Yes Homicidal: No On 72 hour hold: No Orientation: x4 Cognition: Alert Insight: Impared Judgement: Impared Laboratory Results Laboratory Tests Test 07/04/16 07:55 Sodium Level 139mmol/L Potassium Level 3.8mmol/L Chloride Level 105mmol/L Carbon Dioxide Level 30mmol/L Anion Gap 8 Blood Urea Nitrogen 11mg/dl Creatinine 0.66mg/dl Glucose Level 92mg/dl Calcium Level 9.4mg/dl Magnesium Level 1.8mg/dl Total Bilirubin 0.1mg/dl Direct Bilirubin 0.00mg/dl Indirect Bilirubin 0.1mg/dl Aspartate Amino Transf (AST/SGOT) 58IU/L Alanine Aminotransferase (ALT/SGPT) 580IU/L Alkaline Phosphatase 80IU/L Total Protein 6.6g/dl Albumin 3.7g/dl Globulin 2.90g/dl Albumin/Globulin Ratio 1.27 Assessment and Plan Assessment/Diagnosis [place] I: Schizoaffective disorder. OCD [place] II: defered [place] III: as per record [place] IV: severe [place] V: gaf 25 Recommendation/Plan Medication Management please continue current meds regime, agree with Dr Carnes Psychotherapy defer to inpt Follow-up/Disposition Please transfer to inpt psych for stabilization and safety [id number] for [id number] Recommendation: Place Hold MEGA MURRELL MD July 05, 2016 16:04
--- NOTE | 2016-07-05 17:02 | PN ---
Date/Time of Note Date/Time of Note DATE: 07/05/16 TIME: 17:01 Assessment/Plan VTE Prophylaxis VTE Prophylaxis Intervention: SCD's Lines/Catheters IV Catheter Type (from [facility]): Saline Lock Urinary Cath still in place: No Assessment/Plan Assessment/Plan 1. Attempted suicide with Tylenol overdose Liver enzymes are trending down GI consultation appreciated Status post Mucomyst continue one-to-one sitter PET team eval as patient is now status post Mucomyst and LFTs have trended down , patient is medically stable for transfer to a psych facility 2. 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 Hypokalemia- repleted 4. Thrombocytopenia-resolved Monitor Prophylaxis: Sequential compression devices Subjective 24 Hr Interval Summary Free Text/Dictation awake, alert, no acute events, pt sometimes telling nurses about SI Exam/Review of Systems Vital Signs Vitals Vital Signs Date Time Temp Pulse Resp B/P Pulse Ox O2 Delivery O2 Flow Rate FiO2 07/05/16 08:00 98.2 67 16 147/85 98 Room Air Intake and Output 07/04/16 07/04/16 07/05/16 14:59 22:59 06:59 Intake Total 1760 ml 700 ml Balance 1760 ml 700 ml Exam Constitutional: alert Respiratory: clear to auscultation Cardiovascular: regular rate and rhythm Gastrointestinal: soft, No distended Musculoskeletal: nl extremities to inspection Results Result Diagram: 07/04/16 0755 Medications Medications Current Medications Ondansetron HCl (Zofran Inj) 4 mg Q6H PRN IV NAUSEA AND/OR VOMITING; Start at 17:00 Docusate Sodium (Colace) 100 mg Q12H PRN PO CONSTIPATION; Start 06/28/16 at 17: 00 Sertraline HCl (Zoloft) 50 mg DAILY PO Last administered on 07/05/16 08:48; Admin Dose 50 MG; Start 06/30/16 at 11:00 Aripiprazole (Abilify) 10 mg DAILY PO Last administered on 07/05/16 08:48; Admin Dose 10 MG; Start 06/30/16 at 11:00 Lamotrigine (Lamictal) 25 mg DAILY PO Last administered on 07/05/16 08:48; Admin Dose 25 MG; Start 06/30/16 at 11:00 Carbamazepine (Tegretol) 300 mg BID PO Last administered on 07/05/16 08:48; Admin Dose 300 MG; Start 06/30/16 at 11:00 LEO LEMOS MD July 05, 2016 17:02
--- NOTE | 2016-07-05 17:43 | PN ---
Date/Time of Note Date/Time of Note DATE: 07/05/16 TIME: 17:41 Assessment/Plan VTE Prophylaxis VTE Prophylaxis Intervention: SCD's Lines/Catheters IV Catheter Type (from Nrs): Saline Lock Urinary Cath still in place: No Assessment/Plan Assessment/Plan Elevated transaminase Tylenol overdose Suicidal ideation Schizophrenia/Bipolar disorder Plan * monitor liver profile to include PT,PTT INR daily * continue present management Subjective 24 Hr Interval Summary Free Text/Dictation * Course reviwed with RN * Patient seen and examined * no abdominal pain Exam/Review of Systems Vital Signs Vitals Vital Signs Date Time Temp Pulse Resp B/P Pulse Ox O2 Delivery O2 Flow Rate FiO2 07/05/16 08:00 98.2 67 16 147/85 98 Room Air Intake and Output 07/04/16 07/04/16 07/05/16 15:00 23:00 07:00 Intake Total 1760 ml 700 ml Balance 1760 ml 700 ml Exam Constitutional: alert, frail Neck: non-tender, supple Respiratory: clear to auscultation, normal air movement Cardiovascular: nl pulses, regular rate and rhythm Gastrointestinal: nl liver, spleen, non-tender, soft Musculoskeletal: nl extremities to inspection, nl gait and stance Extremities: normal pulses Results Result Diagram: 07/04/16 0755 Medications Medications Current Medications Ondansetron HCl (Zofran Inj) 4 mg Q6H PRN IV NAUSEA AND/OR VOMITING; Start at 17:00 Docusate Sodium (Colace) 100 mg Q12H PRN PO CONSTIPATION; Start 06/28/16 at 17: 00 Sertraline HCl (Zoloft) 50 mg DAILY PO Last administered on 07/05/16 08:48; Admin Dose 50 MG; Start 06/30/16 at 11:00 Aripiprazole (Abilify) 10 mg DAILY PO Last administered on 07/05/16 08:48; Admin Dose 10 MG; Start 06/30/16 at 11:00 Lamotrigine (Lamictal) 25 mg DAILY PO Last administered on 07/05/16 08:48; Admin Dose 25 MG; Start 06/30/16 at 11:00 Carbamazepine (Tegretol) 300 mg BID PO Last administered on 07/05/16 08:48; Admin Dose 300 MG; Start 06/30/16 at 11:00 ROX SEQUEIRA MD July 05, 2016 17:43
[2016-07-05 19:12] VITALS: BP 130/76; RESP 19
[2016-07-06] MEDS ORDERED: ZOLPIDEM 5 MG TAB PO ONE (00:45)
[2016-07-06 05:36] LABS: ADD SCAN DIFF NO
[2016-07-06 05:41] LABS: BASOPHIL # 0.1 10^3/ul (0.0-0.1); BASOPHILS % 0.6 % (0.0-2.0); EOSINOPHILS # 0.2 10^3/ul (0.0-0.5); EOSINOPHILS % 1.9 % (0.0-7.0); HEMATOCRIT 39.6 % (42.0-52.0); HEMOGLOBIN 12.6 g/dl (14.0-18.0); LYMPHOCYTES # 1.7 10^3/ul (0.8-2.9); LYMPHOCYTES % 21.1 % (15.0-51.0); MEAN CORPUSCULAR HEMOGLOBIN 28.3 pg (29.0-33.0); MEAN CORPUSCULAR HGB CONC 31.8 g/dl (32.0-37.0); MEAN CORPUSCULAR VOLUME 88.8 fl (82.0-101.0); MONOCYTE # 0.7 10^3/ul (0.3-0.9); NEUTROPHIL # 5.5 10^3/ul (1.6-7.5); PLATELET COUNT 235 10^3/UL (140-415); RED BLOOD COUNT 4.46 10^6/ul (4.70-6.10); RED CELL DISTRIBUTION WIDTH 13.5 % (11.5-14.5); WHITE BLOOD COUNT 8.3 10^3/ul (4.8-10.8)
[2016-07-06 05:58] LABS: ALBUMIN 4.2 g/dl (3.3-4.9); ALBUMIN/GLOBULIN RATIO 1.75; BILIRUBIN,INDIRECT 0.1 mg/dl (0-1.1); BILIRUBIN,TOTAL 0.1 mg/dl (0.2-1.3); CALCIUM 9.1 mg/dl (8.4-10.2); CREATININE 0.7 mg/dl (0.61-1.24); POTASSIUM 3.7 mmol/L (3.5-5.1); TOTAL PROTEIN 6.6 g/dl (6.1-8.1)
[2016-07-06 06:03] LABS: INR 0.95; PROTIME 12.7 Sec (12.2-14.2)
[2016-07-06 06:04] LABS: PARTIAL THROMBOPLASTIN TIME 26.1 Sec (25.0-35.0)
[2016-07-06] MEDS: LAMOTRIGINE 25 MG TAB PO SCH (08:45)
[2016-07-06] MEDS: SERTRALINE 50 MG TAB PO SCH (08:45)
[2016-07-06] MEDS: carBAMAZepine CHEW 100 MG CHEW PO SCH ×2 (08:45→21:23)
[2016-07-06] MEDS: ARIPIPRAZOLE 10 MG TAB PO SCH (08:45)
[2016-07-06 08:48] VITALS: BP 132/78; PULSE 76; RESP 16
--- NOTE | 2016-07-06 13:21 | PN ---
Date/Time of Note Date/Time of Note DATE: 07/06/16 TIME: 13:16 Assessment/Plan VTE Prophylaxis VTE Prophylaxis Intervention: SCD's Lines/Catheters IV [facility]ter Type (from [facility]): Saline Lock Urinary Cath still in place: No Assessment/Plan Assessment/Plan 1. Attempted suicide with Tylenol overdose Liver enzymes are trending down -= improved much better GI consultation appreciated Status post Mucomyst continue one-to-one sitter PET team eval as patient is now status post Mucomyst and LFTs have trended down , patient is medically stable for transfer to a psych facility 2. 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 Stable electrolytes Prophylaxis: Sequential compression devices s/p Tele psych evaluation, 5150 hold pt needs to go to psych evaluation Subjective 24 Hr Interval Summary Free Text/Dictation doing ok, BP stable, afebrile Exam/Review of Systems Vital Signs Vitals Vital Signs Date Time Temp Pulse Resp B/P Pulse Ox O2 Delivery O2 Flow Rate FiO2 07/06/16 08:48 97.7 76 16 132/78 95 Room Air Intake and Output 07/05/16 07/05/16 07/06/16 15:00 23:00 07:00 Intake Total 1900 ml 700 ml Balance 1900 ml 700 ml Exam Constitutional: alert Respiratory: clear to auscultation Cardiovascular: regular rate and rhythm Gastrointestinal: soft, No distended Musculoskeletal: nl extremities to inspection Results Result Diagram: 07/06/16 0445 07/06/16 0445 Results 24 hrs Laboratory Tests Test 07/06/16 04:45 White Blood Count 8.3 # Red Blood Count 4.46 L Hemoglobin 12.6 L Hematocrit 39.6 L Mean Corpuscular Volume 88.8 Mean Corpuscular Hemoglobin 28.3 L Mean Corpuscular Hemoglobin Concent 31.8 L Red Cell Distribution Width 13.5 Platelet Count 235 # Mean Platelet Volume 12.0 H Neutrophils % 67.0 Lymphocytes % 21.1 Monocytes % 9.0 Eosinophils % 1.9 Basophils % 0.6 Nucleated Red Blood Cells % 0.0 Neutrophils # 5.5 Lymphocytes # 1.7 Monocytes # 0.7 Eosinophils # 0.2 Basophils # 0.1 Nucleated Red Blood Cells # 0.0 Prothrombin Time 12.7 Prothrombin Time Ratio 1.0 INR International Normalized Ratio 0.95 Activated Partial Thromboplast Time 26.1 Sodium Level 137 Potassium Level 3.7 Chloride Level 103 Carbon Dioxide Level 29 Anion Gap 9 Blood Urea Nitrogen 13 Creatinine 0.70 Glucose Level 97 Calcium Level 9.1 Total Bilirubin 0.1 L Direct Bilirubin 0.00 Indirect Bilirubin 0.1 Aspartate Amino Transf (AST/SGOT) 58 H Alanine Aminotransferase (ALT/SGPT) 379 H Alkaline Phosphatase 85 Total Protein 6.6 Albumin 4.2 Globulin 2.40 Albumin/Globulin Ratio 1.75 Medications Medications Current Medications Ondansetron HCl (Zofran Inj) 4 mg Q6H PRN IV NAUSEA AND/OR VOMITING; Start at 17:00 Docusate Sodium (Colace) 100 mg Q12H PRN PO CONSTIPATION Last administered on 05:36; Admin Dose 100 MG; Start 06/28/16 at 17:00 Sertraline HCl (Zoloft) 50 mg DAILY PO Last administered on 07/06/16 08:45; Admin Dose 50 MG; Start 06/30/16 at 11:00 Aripiprazole (Abilify) 10 mg DAILY PO Last administered on 07/06/16 08:45; Admin Dose 10 MG; Start 06/30/16 at 11:00 Lamotrigine (Lamictal) 25 mg DAILY PO Last administered on 07/06/16 08:45; Admin Dose 25 MG; Start 06/30/16 at 11:00 Carbamazepine (Tegretol) 300 mg BID PO Last administered on 07/06/16 08:45; Admin Dose 300 MG; Start 06/30/16 at 11:00 LEO LEMOS MD July 06, 2016 13:20
--- NOTE | 2016-07-06 14:09 | PN ---
Date/Time of Note Date/Time of Note DATE: 07/06/16 TIME: 14:06 Assessment/Plan VTE Prophylaxis VTE Prophylaxis Intervention: ambulation Lines/Catheters IV [facility] Saline Lock Urinary Cath still in place: No Assessment/Plan Assessment/Plan Elevated transaminase improving Tylenol overdose Suicidal ideation Schizophrenia/Bipolar disorder Plan * stable for outpatient management * Repeat ALT and AST in 1 week and follow up * will sign out and call us as needed Subjective 24 Hr Interval Summary Free Text/Dictation * Course reviewed with RN * Patient seen and examined * ALT/AST improving * No abdominal pain Exam/Review of Systems Vital Signs Vitals Vital Signs Date Time Temp Pulse Resp B/P Pulse Ox O2 Delivery O2 Flow Rate FiO2 07/06/16 08:48 97.7 76 16 132/78 95 Room Air Intake and Output 07/05/16 07/05/16 07/06/16 15:00 23:00 07:00 Intake Total 1900 ml 700 ml Balance 1900 ml 700 ml Exam Constitutional: alert, frail Neck: non-tender, supple Respiratory: clear to auscultation, normal air movement Cardiovascular: nl pulses, regular rate and rhythm Gastrointestinal: nl liver, spleen, non-tender, soft Musculoskeletal: nl extremities to inspection Extremities: normal pulses Results Result Diagram: 07/06/16 0445 07/06/16 0445 Results 24 hrs Laboratory Tests Test 07/06/16 04:45 White Blood Count 8.3 # Red Blood Count 4.46 L Hemoglobin 12.6 L Hematocrit 39.6 L Mean Corpuscular Volume 88.8 Mean Corpuscular Hemoglobin 28.3 L Mean Corpuscular Hemoglobin Concent 31.8 L Red Cell Distribution Width 13.5 Platelet Count 235 # Mean Platelet Volume 12.0 H Neutrophils % 67.0 Lymphocytes % 21.1 Monocytes % 9.0 Eosinophils % 1.9 Basophils % 0.6 Nucleated Red Blood Cells % 0.0 Neutrophils # 5.5 Lymphocytes # 1.7 Monocytes # 0.7 Eosinophils # 0.2 Basophils # 0.1 Nucleated Red Blood Cells # 0.0 Prothrombin Time 12.7 Prothrombin Time Ratio 1.0 INR International Normalized Ratio 0.95 Activated Partial Thromboplast Time 26.1 Sodium Level 137 Potassium Level 3.7 Chloride Level 103 Carbon Dioxide Level 29 Anion Gap 9 Blood Urea Nitrogen 13 Creatinine 0.70 Glucose Level 97 Calcium Level 9.1 Total Bilirubin 0.1 L Direct Bilirubin 0.00 Indirect Bilirubin 0.1 Aspartate Amino Transf (AST/SGOT) 58 H Alanine Aminotransferase (ALT/SGPT) 379 H Alkaline Phosphatase 85 Total Protein 6.6 Albumin 4.2 Globulin 2.40 Albumin/Globulin Ratio 1.75 Medications Medications Current Medications Ondansetron HCl (Zofran Inj) 4 mg Q6H PRN IV NAUSEA AND/OR VOMITING; Start at 17:00 Docusate Sodium (Colace) 100 mg Q12H PRN PO CONSTIPATION Last administered on 05:36; Admin Dose 100 MG; Start 06/28/16 at 17:00 Sertraline HCl (Zoloft) 50 mg DAILY PO Last administered on 07/06/16 08:45; Admin Dose 50 MG; Start 06/30/16 at 11:00 Aripiprazole (Abilify) 10 mg DAILY PO Last administered on 07/06/16 08:45; Admin Dose 10 MG; Start 06/30/16 at 11:00 Lamotrigine (Lamictal) 25 mg DAILY PO Last administered on 07/06/16 08:45; Admin Dose 25 MG; Start 06/30/16 at 11:00 Carbamazepine (Tegretol) 300 mg BID PO Last administered on 07/06/16 08:45; Admin Dose 300 MG; Start 06/30/16 at 11:00 ROX SEQUEIRA MD July 06, 2016 14:09
[2016-07-06 20:02] VITALS: BP 139/81; RESP 18
[2016-07-06] MEDS ORDERED: ZOLPIDEM 5 MG TAB PO PRN (21:30)
[2016-07-07 06:57] LABS: ALBUMIN 4.2 g/dl (3.3-4.9); BILIRUBIN,INDIRECT 0.1 mg/dl (0-1.1); BILIRUBIN,TOTAL 0.1 mg/dl (0.2-1.3); CALCIUM 8.8 mg/dl (8.4-10.2); CREATININE 0.65 mg/dl (0.61-1.24); POTASSIUM 3.8 mmol/L (3.5-5.1); TOTAL PROTEIN 6.3 g/dl (6.1-8.1)
[2016-07-07 08:00] VITALS: BP 154/92; PULSE 74; RESP 16
[2016-07-07] MEDS: SERTRALINE 50 MG TAB PO SCH (08:31)
[2016-07-07] MEDS: LAMOTRIGINE 25 MG TAB PO SCH (08:31)
[2016-07-07] MEDS: carBAMAZepine CHEW 100 MG CHEW PO SCH (08:31)
[2016-07-07] MEDS: ARIPIPRAZOLE 10 MG TAB PO SCH (08:31)
--- NOTE | 2016-07-07 14:03 | PDOCDIS ---
Discharge Instructions CONDITION Patient Condition: Good HOME CARE INSTRUCTIONS: Special Diet: REGULAR DIET ACTIVITY: Activity Restrictions: Slowly Increase Activity Rest between Activity Avoid heavy lifting Avoid Heavy Housework FOLLOW UP/APPOINTMENTS Appointments follow up with Psychiatric facility for psych physician . Follow up with his own PMD through HMO insurance in 1-2 week after discharge LEO LEMOS MD Jul 07, 2016 14:03
--- NOTE | 2016-07-07 16:32 | PN ---
Date/Time of Note Date/Time of Note DATE: 07/07/16 TIME: 16:31 Assessment/Plan VTE Prophylaxis VTE Prophylaxis Intervention: SCD's Lines/Catheters IV [facility] Saline Lock Urinary Cath still in place: No Assessment/Plan Assessment/Plan 1. Attempted suicide with Tylenol overdose Liver enzymes are trending down -= improved much better GI consultation appreciated Status post Mucomyst continue one-to-one sitter PET team eval as patient is now status post Mucomyst and LFTs have trended down , patient is medically stable for transfer to a psych facility 2. 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 Stable electrolytes Prophylaxis: Sequential compression devices s/p Tele psych evaluation, 5150 hold s/p PET team evaluation, accepted in Psych facility Plan for transfer to psych facility today Subjective 24 Hr Interval Summary Free Text/Dictation s/p PET evaluation, accepted in Psych facility Exam/Review of Systems Vital Signs Vitals Vital Signs Date Time Temp Pulse Resp B/P Pulse Ox O2 Delivery O2 Flow Rate FiO2 07/07/16 08:00 98.1 74 16 154/92 98 Room Air Intake and Output 07/06/16 07/06/16 07/07/16 15:00 23:00 07:00 Intake Total 1650 ml 1140 ml Balance 1650 ml 1140 ml Exam Constitutional: alert Respiratory: clear to auscultation Cardiovascular: regular rate and rhythm Gastrointestinal: soft, No distended Musculoskeletal: nl extremities to inspection Results Result Diagram: 07/06/16 0445 07/07/16 0514 Results 24 hrs Laboratory Tests Test 07/07/16 05:14 Sodium Level 140 Potassium Level 3.8 Chloride Level 107 Carbon Dioxide Level 29 Anion Gap 8 Blood Urea Nitrogen 10 Creatinine 0.65 Glucose Level 96 Calcium Level 8.8 Total Bilirubin 0.1 L Direct Bilirubin 0.00 Indirect Bilirubin 0.1 Aspartate Amino Transf (AST/SGOT) 41 Alanine Aminotransferase (ALT/SGPT) 286 H Alkaline Phosphatase 76 Total Protein 6.3 Albumin 4.2 Globulin 2.10 Albumin/Globulin Ratio 2.00 Medications Medications Current Medications Ondansetron HCl (Zofran Inj) 4 mg Q6H PRN IV NAUSEA AND/OR VOMITING; Start at 17:00 Docusate Sodium (Colace) 100 mg Q12H PRN PO CONSTIPATION Last administered on 05:36; Admin Dose 100 MG; Start 06/28/16 at 17:00 Sertraline HCl (Zoloft) 50 mg DAILY PO Last administered on 07/07/16 08:31; Admin Dose 50 MG; Start 06/30/16 at 11:00 Aripiprazole (Abilify) 10 mg DAILY PO Last administered on 07/07/16 08:; Admin Dose 10 MG; Start 06/30/16 at 11:00 Lamotrigine (Lamictal) 25 mg DAILY PO Last administered on 07/07/16 08:31; Admin Dose 25 MG; Start 06/30/16 at 11:00 Carbamazepine (Tegretol) 300 mg BID PO Last administered on 07/07/16 08:31; Admin Dose 300 MG; Start 06/30/16 at 11:00 Zolpidem Tartrate (Ambien) 5 mg HS PRN PO INSOMNIA Last administered on 22:51; Admin Dose 5 MG; Start 07/06/16 at 21:30 LEO LEMOS MD Jul 07, 2016 16:32
--- NOTE | 2016-07-07 23:21 | DS ---
DATE OF ADMISSION: 06/28/2016 DATE OF DISCHARGE: 07/07/2016 FINAL DISCHARGE DIAGNOSES: 1. Attempted suicide with Tylenol overdose, improving. 2. Acute transaminitis secondary to Tylenol overdose, improving at the time of the discharge. 3. History of schizoaffective disorder. 4. Suicidal ideation, status post 5150 hold, which was discontinued, status post 2 tele psychiatric evaluations. The patient was persistently suicide, placed back on 5150 hold. CONSULTATIONS DONE DURING THIS HOSPITALIZATION: Tele psychiatric consultation done twice during thi s hospitalization. HOSPITAL COURSE: This is a 61-year-old male with a past medical history of schizoaffective disorder , bipolar disorder, obsessive compulsive disorder, who presented after attempting suicide with Tylen ol overdose. The patient had acute transaminitis and suspected liver injury from Tylenol overdose. He was evaluated and admitted to the med/surg floor, where he had a gastroenterology consultation d one by Dr. Gilbert Begum. The patient remained hemodynamically stable. He was given Mucomyst, IV fl uids for the Tylenol overdose. He slowly gradually improved back to normal. His LFTs were also imp roving. He was started on diet, tolerating his diet. He had the first tele psychiatric evaluation done, for which he was cleared from the hold, but he was persistently intermittently complaining to the medical staff about suicidal ideations, so he had another tele psychiatric evaluation and after that evaluation, the patient was placed on a 5150 hold. Due to his persistent suicidal ideation, he was set up for psychiatric admission, and he is discharged to the psychiatric hospital for persiste nt suicidal ideation. DISPOSITION: To the psychiatric hospital. DISCHARGE CONDITION: Stable and improved compared to admission. DISCHARGE ACTIVITIES: As tolerated, slowly resume to the normal baseline activity. DISCHARGE DIET: Low fat, low sodium diet. DISCHARGE MEDICATIONS: As per medical reconciliation. He is continued on all of his psychiatric me dications and bipolar disorder medications upon transferred to the psych facility. DISCHARGE FOLLOWUP AND INSTRUCTIONS: 1. The patient is to follow up with physician at the psychiatric facility. 2. The patient is to follow up with his own primary care doctor through his HMO insurance upon disc harge from the psychiatric facility. Dictated By: LEO LEMOS MD, KP/VIANEY Conf#: [id number] DID#: [id number]
== END 2016-07-07 15:58 | DRG 918 ==
LOC: E/R 11:21 → MS4 15:57 → PP2 07-02 23:05
PROVIDERS: ADMIT Hospitalist; ATTEND Hospitalist
DX: T39.1X2A Poisoning by 4-Aminophenol derivatives, intentional self-harm, initial encounter (principal); R45.851 Suicidal ideations; D69.6 Thrombocytopenia, unspecified; F31.63 Bipolar disorder, current episode mixed, severe, without psychotic features; E87.6 Hypokalemia; R74.0 Nonspecific elevation of levels of transaminase and lactic acid dehydrogenase [LDH]; F42.9 Obsessive-compulsive disorder, unspecified; F25.9 Schizoaffective disorder, unspecified; Y92.009 Unspecified place in unspecified non-institutional (private) residence as the place of occurrence of the external cause
CPT/HCPCS: 36415; 80053; 80306; 80307; 81001; 82247; 82248; 83036; 83735; 84075; 84100; 84450; 84460; 85025; 85610; 85730; 96360; 96361; J0400; J3480; J7030

== ENCOUNTER 2016-08-16 20:20 | Inpatient (IN) | payer OTHER ==
[~2016-08-16] VITALS: Ht 182.9 cm; Wt 61.0 kg
[~2016-08-16 20:20] MED LIST: DOCU-144 PO
[2016-08-16] MEDS ORDERED: SODIUM CHLORIDE 0.9% 1L BAG IV* STA (23:35)
[2016-08-17 00:14] LABS: ADD SCAN DIFF NO
[2016-08-17 00:15] LABS: BASOPHILS % 0.2 % (0.0-2.0); HEMATOCRIT 39.9 % (42.0-52.0); HEMOGLOBIN 13.2 g/dl (14.0-18.0); LYMPHOCYTES # 0.7 10^3/ul (0.8-2.9); LYMPHOCYTES % 5.8 % (15.0-51.0); MEAN CORPUSCULAR HEMOGLOBIN 30.3 pg (29.0-33.0); MEAN CORPUSCULAR HGB CONC 33.1 g/dl (32.0-37.0); MEAN CORPUSCULAR VOLUME 91.5 fl (82.0-101.0); MEAN PLATELET VOLUME 12.7 fl (7.4-10.4); MONOCYTES % 8.4 % (0.0-11.0); NEUTROPHIL # 10.6 10^3/ul (1.6-7.5); NEUTROPHILS % 85.1 % (39.0-77.0); PLATELET COUNT 181 10^3/UL (140-415); RED BLOOD COUNT 4.36 10^6/ul (4.70-6.10); RED CELL DISTRIBUTION WIDTH 13.2 % (11.5-14.5); WHITE BLOOD COUNT 12.4 10^3/ul (4.8-10.8)
[2016-08-17 00:31] LABS: INR 1.03; PROTIME 13.5 Sec (12.2-14.2); PT RATIO 1.1
[2016-08-17 00:32] LABS: PARTIAL THROMBOPLASTIN TIME 24.3 Sec (25.0-35.0)
[2016-08-17 00:33] LABS: ALBUMIN 5.2 g/dl (3.3-4.9); ALBUMIN/GLOBULIN RATIO 1.67; BILIRUBIN,INDIRECT 0.3 mg/dl (0-1.1); BILIRUBIN,TOTAL 0.3 mg/dl (0.2-1.3); CALCIUM 10.5 mg/dl (8.4-10.2); CREATININE 1.25 mg/dl (0.61-1.24); POTASSIUM 3.5 mmol/L (3.5-5.1); TOTAL PROTEIN 8.3 g/dl (6.1-8.1)
[2016-08-17 00:45] LABS: TROPONIN-I 0.017 ng/ml (0.00-0.12)
[2016-08-17] MEDS ORDERED: CEFEPIME 2GM/50 ML (PMX) 50 ML IVPB STA (01:19)
[2016-08-17] MEDS ORDERED: SODIUM CHLORIDE 0.9% 1L BAG IV* STA (01:19)
[2016-08-17] MEDS ORDERED: VANCOMYCIN 1 GM (PMX) 250 ML IVPB ONE (01:30)
--- NOTE | 2016-08-17 01:46 | RADRPT ---
PROCEDURE: XR Chest. CLINICAL INDICATION: Possible sepsis. TECHNIQUE: Single frontal view of the chest. COMPARISON: None. FINDINGS: The cardiomediastinal silhouette is within normal limits. The lungs are clear. No signs of pleural f luid or pneumothorax are seen. The osseous structures and soft tissues are unremarkable. IMPRESSION: No evidence for active cardiopulmonary disease. RPTAT: [facility] Physician Divya Date Time Electronically viewed and signed by Physician Divya on 08/17/2016 01:46 RS/
--- NOTE | 2016-08-17 02:32 | ERA ---
ER Documentation Chief Complaint Date/Time DATE: 08/17/16 TIME: 02:30 Chief Complaint ground level mechanical fall, dehydration HPI This 61-year-old male ground-level mechanical fall. He states he is very dehydrated. Patient is homeless and admits to drinking alcohol regularly. Denies any other current complaints. ROS All systems reviewed and are negative except as per history of present illness. Medications Home Meds Reported Medications Docusate Sodium* (Colace*) 100 Mg Capsule, 100 MG PO BID Y for CONSTIPATION, # 60 CAP 06/28/16 Allergies Allergies: Coded Allergies: No Known Allergy (Unverified , 06/28/16) PMhx/Soc Anesthesia Reaction: No Hx Neurological Disorder: No Hx Respiratory Disorders: No Hx Cardiac Disorders: No Hx Psychiatric Problems: Yes (Schizoaffective, Bipolar, OCD) Hx Miscellaneous Medical Probl: No Hx Alcohol Use: No Hx Substance Use: No Hx Tobacco Use: No Smoking Status: Never smoker Physical Exam Vitals Vital Signs Date Time Temp Pulse Resp B/P Pulse Ox O2 Delivery O2 Flow Rate FiO2 08/17/16 00:10 79 16 122/82 96 Room Air 08/16/16 20:29 100.4 118 18 123/72 97 Physical Exam Const: [] Head: Atraumatic Eyes: Normal Conjunctiva ENT: Normal External Ears, Nose and Mouth. Neck: Full range of motion..~ No meningismus. Resp: Clear to auscultation bilaterally Cardio: Regular rate and rhythm, no murmurs Abd: Soft, non tender, non distended. Normal bowel sounds Skin: No petechiae or rashes Back: No midline or flank tenderness Ext: No cyanosis, or edema Neur: Awake and alert Psych: Normal Mood and Affect Result Diagram: 08/16/16 0000 08/16/16 0000 Results 24 hrs Laboratory Tests Test 08/16/16 00:00 White Blood Count 12.410^3/ul Red Blood Count 4.3610^6/ul Hemoglobin 13.2g/dl Hematocrit 39.9% Mean Corpuscular Volume 91.5fl Mean Corpuscular Hemoglobin 30.3pg Mean Corpuscular Hemoglobin Concent 33.1g/dl Red Cell Distribution Width 13.2% Platelet Count 32662^3/UL Mean Platelet Volume 12.7fl Neutrophils % 85.1% Lymphocytes % 5.8% Monocytes % 8.4% Eosinophils % 0.0% Basophils % 0.2% Nucleated Red Blood Cells % 0.0/100WBC Neutrophils # 10.610^3/ul Lymphocytes # 0.710^3/ul Monocytes # 1.010^3/ul Eosinophils # 0.010^3/ul Basophils # 0.010^3/ul Nucleated Red Blood Cells # 0.010^3/ul Prothrombin Time 13.5Sec Prothrombin Time Ratio 1.1 INR International Normalized Ratio 1.03 Activated Partial Thromboplast Time 24.3Sec Sodium Level 152mmol/L Potassium Level 3.5mmol/L Chloride Level 111mmol/L Carbon Dioxide Level 22mmol/L Anion Gap 23 Blood Urea Nitrogen 40mg/dl Creatinine 1.25mg/dl Glucose Level 137mg/dl Lactic Acid Level 2.3mmol/L Calcium Level 10.5mg/dl Total Bilirubin 0.3mg/dl Direct Bilirubin 0.00mg/dl Indirect Bilirubin 0.3mg/dl Aspartate Amino Transf (AST/SGOT) 55IU/L Alanine Aminotransferase (ALT/SGPT) 41IU/L Alkaline Phosphatase 75IU/L Troponin I 0.017ng/ml Total Protein 8.3g/dl Albumin 5.2g/dl Globulin 3.10g/dl Albumin/Globulin Ratio 1.67 Current Medications Medications (Trade) Dose Ordered Sig/Mahogany Route PRN Reason Start Time Stop Time Status Last Admin Dose Admin Sodium Chloride (NS) 1,860 ml BOLUS OVER 2 HOURS STAT IV* 08/16/16 23:35 08/16/16 23:36 DC 08/17/16 00:05 Sodium Chloride 1860 ml 1,860 ml BOLUS OVER 2 HOURS STAT IV* 08/17/16 01:19 08/17/16 01:20 DC Cefepime HCl 50 ml @ 100 mls/hr ONCE STAT IVPB 08/17/16 01:19 08/17/16 01:48 DC 08/17/16 02:02 Vancomycin HCl (Vancocin) 250 ml @ 125 mls/hr ONCE ONCE IVPB 08/17/16 01:30 08/17/16 03:29 Procedures/MDM EKG: Rate/Rhythm: Normal Sinus Rhythm QRS, ST, T-waves: No changes consistent w/ acute ischemia Impression: No evidence of ischemia or arrhythmia Chest X-ray 1V Interpreted by me: Soft Tissue: No acute abnormalities Bones: No acute abnormalities Mediastinum/Cardiac Silhouette/Lungs: No acute abnormalities Patient's infectious symptoms have not stabilized and the patient is at risk of rapid decompensation. The patient will be admitted for careful hydration, antibiotic therapy, and infectious source control. Severe Sepsis Assessment: Infectious Source: Unknown End organ damage indicated by: [Lactate > 2.0 mmol/L Severe Sepsis Managment: Blood Cultures X 2 before broad spectrum antibiotics initiated within 3 hours of recognition. 30 ml/kg NS bolus Completed Initial Lactate: 2.3 Repeat Lactate pending Critical Care: Time: 45 minutes Treatments/Evaluations: Emergent fluid management, while maintaining close respiratory support. Immediate broad spectrum antibiotic therapy. Simultaneous assessment for possible sources in order to direct therapy. Consideration for invasive and chemical support to prevent respiratory or cardiac collapse. Septic Shock Assessment (1 hour post 30 ml/kg fluid bolus): Hypotension (SBP < 90 or 40 mmHg drop, MAP < 65): [No] Lactic acid > 4.0 [No] Accepting Care Team: Current data and ongoing care discussed. Time: 2:30 AM Primary Provider: Hospitalist Consulting: [XOXOXO] Outstanding Data: none Departure Diagnosis: Primary Impression: Sepsis Qualified Code: A41.9 - Sepsis, due to unspecified organism Condition: Serious MARVIN KULKARNI Aug 17, 2016 02:32
[2016-08-17] MEDS ORDERED: SOD CHLORIDE 0.9% 1,000 ML IV SCH (03:04)
[2016-08-17 03:27] VITALS: BP 121/70; RESP 18; Ht 182.9 cm; Wt 61.0 kg
[2016-08-17] MEDS ORDERED: NACL 0.9% 3 ML SYG IV SCH (03:30)
[2016-08-17] MEDS ORDERED: ACETAMINOPHEN 325 MG TAB PO PRN (03:30)
[2016-08-17] MEDS ORDERED: ONDANSETRON 4 MG INJ IV PRN (03:30)
[2016-08-17] MEDS ORDERED: LORAZEPAM 2 MG INJ IM PRN (03:30)
[2016-08-17] MEDS ORDERED: SOD CHLORIDE 0.9% 1,000 ML IV ONE ×2 (04:00→06:00)
[2016-08-17] MEDS ORDERED: LEVOFLOXACIN 750MG/D5W (PMX) 150 ML IVPB ONE (05:00)
--- NOTE | 2016-08-17 05:35 | HP ---
Date/Time of Note Date/Time of Note DATE: 08/17/16 TIME: 05:35 Assessment/Plan VTE Prophylaxis VTE Prophylaxis Intervention: SCD's Lines/Catheters IV Catheter Type (from [facility]): Peripheral IV Assessment/Plan Chief Complaint/Hosp Course This is a 61-year-old male being admitted to the [facility] floor for: #1 Encephalopathy: Likely secondary to infection and/or trauma to the head and/ or dehydration and/or alcohol use. Patient at the current time appears lethargic and somnolent however he is arousable however is unable to provide appropriate history. Will order a stat CT scan of the head to observe for any abnormal intracranial pathology. Will put patient on IV fluid hydration as patient does appear dry. He does have elevated white blood cell count of 12 he received empiric antibiotics in the ED with no obvious source of infection at this time. No fevers. Will check urine and blood cultures. #2 fall: We will check a stat CT of the head to rule out any intracranial pathology. Will also check a carotid Doppler ultrasound. As well as an echocardiogram. #3 acute kidney injury: Likely secondary to dehydration and/or alcohol abuse. Will provide IV fluid hydration with normal saline. Follow electrolytes and consult nephrology #4 hypernatremia: This likely could be manifestation of dehydration/insensible losses from possibly being in the heat. We will continue IV fluid resuscitation as I do feel he is behind on fluids and have nephrology see the patient #5 leukocytosis: This could be infectious versus reactive in etiology at the current time there is no overt source of infection. He did receive empiric antibiotics in the ED. his lactate did initially trend up and go to 5 and then trended back down. This could be secondary to dehydration versus infectious etiology. We will continue to monitor this for now he does not have any fevers. #6 mild rhabdomyolysis: Patient had a CK mildly elevated at 300. Will provide IV fluid hydration. #7 possible schizophrenia: We do not have any of the patient's medications, patient states he does not live with anybody likely will need to try to obtain the medications through pharmacy or weight until the patient is recovering so they can provide us with the medication information #8 DVT and GI prophylaxis: SCDs, Protonix Further treatment strategy as per the clinical course Problems: HPI/ROS Admit Date/Time Admit Date/Time Aug 17, 2016 at 02:33 Hx of Present Illness Chief complaint: Fall This is a 61-year-old male who is a poor historian and somnolent but easily arousable who comes into the ED after sustaining a mechanical fall. Patient states that he was outside of his house and he tripped and fell yesterday. He states that he lives by himself. He is unable to state how long he was outside or whether he went back into his house however 1 of his neighbors apparently called ambulance and he was subsequently brought to the ED. Upon my examination patient is somnolent but is easily arousable he does appear lethargic. His mucous membranes are dry and he does appear possibly sunburned. He is unable to provide an adequate past medical history except for having possible schizophrenia. allergies: nkda meds: see Apr Const: As per HPI Eyes : No pain discharge or redness or change in visual acuity ENT: No pain, sore throat, congestion, congestion, dysphagia or discharge Respiratory: No shortness of breath, cough, sputum, wheezing, or pleuritic pain Cardiovascular: No chest pain, palpitation, PND, or edema GI : no change in appetite, abdominal pain, nausea, vomiting, diarrhea, constipation, or change in the color his stool Genitourinary: No dysuria, hematuria, flank pain , discharge or CVA tenderness Musculoskeletal: No joint pain, back pain, neck pain, restricted range of motion in neck or joints Skin: No rash, bruising or hives Neuro: As per HPI Endocrine: No polyuria, polydipsia, temperature intolerance Psych: No hallucination, depression, anxiety or suicidal ideation PMH/Family/Social Past Medical History Schizophrenia, unable to give a adequate history secondary to patient's lethargic status Past Surgical History unable to give a adequate history secondary to patient's lethargic status Past Surgical Hx: no surgical history Family History Significant Family History: other (Schizophrenia, unable to give a adequate history secondary to patient's lethargic status) Social History Schizophrenia, unable to give a adequate history secondary to patient's lethargic status Smoking Status: Unknown if ever smoked Exam/Review of Systems Vital Signs Vitals Vital Signs Date Time Temp Pulse Resp B/P Pulse Ox O2 Delivery O2 Flow Rate FiO2 08/17/16 03:27 97.6 18 121/70 99 Room Air 08/17/16 00:10 79 Exam Exam General: Patient is lying in bed, appears lethargic and somnolent however he is easily arousable. HEENT: Right facial abrasion, mucous membranes dry Neck: Supple with full range of motion. No rigidity or meningismus Chest: Nontender Lungs: Clear to auscultation bilaterally no crackles rales or wheezing Heart: Normal S1-S2, Regular rhythm and rate. No murmur, S3, or S4 Abdomen: Soft , nontender, nondistended , bowel sounds are present. No guarding no rebound tenderness , No masses or organomegaly. Extremities: Normal to inspection, no edema no cyanosis Neurologic: Normal mental status, speech normal, cranial nerves II through XII are intact, motor and sensory are intact, no focal weakness Skin: Tenting of the skin, mild redness of the face and bilateral arms possibly secondary to sunburn Additional Comments PROCEDURE: XR Chest. CLINICAL INDICATION: Possible sepsis. TECHNIQUE: Single frontal view of the chest. COMPARISON: None. FINDINGS: The cardiomediastinal silhouette is within normal limits. The lungs are clear. No signs of pleural fluid or pneumothorax are seen. The osseous structures and soft tissues are unremarkable. IMPRESSION: No evidence for active cardiopulmonary disease. RPTAT: [facility] Physician Divya Date Time Electronically viewed and signed by Physician Divya on 08/17/2016 01:46 RS/ CC: MARVIN KULKARNI Labs Result Diagram: 08/16/16 0000 08/16/16 0000 Medications Medications Current Medications Sodium Chloride (NS) 1,000 ml @ 75 mls/hr [id number] IV ; Start 08/17/16 at 03:04 Ondansetron HCl (Zofran Inj) 4 mg Q6H PRN IV NAUSEA AND/OR VOMITING; Start 01/22 at 03:30 Acetaminophen (Tylenol Tab) 650 mg Q6H PRN PO PAIN LEVEL 1-3 OR FEVER; Start at 03:30 Pantoprazole (Protonix Iv) 40 mg DAILY@06 IV ; Start 08/17/16 at 06:00 Lorazepam 1 mg 1 mg Q6H PRN IM AGITATION/ANXIETY; Start 08/17/16 at 03:30 Multivitamins 10 ml/Thiamine HCl 100 mg/Folic Acid 1 mg/Sodium Chloride 1,011.2 ml @ 125 mls/ hr DAILY@09 IVPB ; Start 08/17/16 at 09:00 Sodium Chloride 1,000 ml @ 500 mls/hr Q2H ONCE IV Last administered on t 04:18; Admin Dose 500 MLS/HR; Start 08/17/16 at 04:00; Stop 08/17/16 at 05: 59 Levofloxacin/ Dextrose (Levaquin 750 Mg/ D5W 150 ml (Pmx)) 150 ml @ 100 mls/hr ONCE ONCE IVPB ; Start 08/17/16 at 05:00; Stop 08/17/16 at 06:29 MICAELA ASHTON Aug 17, 2016 05:35
[2016-08-17] MEDS ORDERED: PANTOPRAZOLE 40 MG INJ IV SCH (06:00)
[2016-08-17 06:04] LABS: ADD UMIC NO; UR ASCORBIC ACID 40 mg/dL (NEGATIVE); UR BILIRUBIN (Dip) NEGATIVE (NEGATIVE); UR BLOOD (Dip) NEGATIVE (NEGATIVE); UR CLARITY SLIGHTLY CLOUDY (CLEAR); UR COLOR YELLOW (YELLOW); UR GLUCOSE (Dip) 1+ mg/dL (NEGATIVE); UR KETONES (Dip) 2+ mg/dL (NEGATIVE); UR LEUKOCYTE ESTERASE (Dip) NEGATIVE Leu/ul (NEGATIVE); UR NITRITE (Dip) NEGATIVE (NEGATIVE); UR RBC 1 /HPF (0-5); UR SPECIFIC GRAVITY (Dip) 1.027 (1.003-1.030); UR TOTAL PROTEIN (Dip) NEGATIVE (NEGATIVE); UR UROBILINOGEN (Dip) NEGATIVE (NEGATIVE)
[2016-08-17 06:13] LABS: HAAIG REFLEX REFLEX FILED
[2016-08-17 06:30] VITALS: BP 112/70; PULSE 65; RESP 18
[2016-08-17 06:39] LABS: CALCIUM 8.8 mg/dl (8.4-10.2); POTASSIUM 3.5 mmol/L (3.5-5.1)
[2016-08-17 06:40] LABS: BARBITURATES Negative (NEGATIVE); BENZODIAZEPINES Negative (NEGATIVE); CANNABINOIDS Negative (NEGATIVE); COCAINE Negative (NEGATIVE); OPIATES Negative (NEGATIVE)
[2016-08-17 06:51] LABS: ETHANOL < 10.0 mg/dl
[2016-08-17 07:25] VITALS: BP 117/72; RESP 18
[2016-08-17 07:30] LABS: HEPATITIS B CORE ANTIBODY NEGATIVE (NEGATIVE)
--- NOTE | 2016-08-17 08:21 | RADRPT ---
PROCEDURE: CT Brain without contrast. CLINICAL INDICATION: Lethargy. Status post fall. TECHNIQUE: A CT of the brain was performed on a multidetector CT scanner utilizing axial sections from the skull base through the vertex without contrast. Images were reviewed on a high-resolution [employer] workstation. Exam CTDI = 41.28 mGy and the DLP = 720.23 mGy-cm. One or more of the following dose reduction techniques were used: Automated exposure control Adjustment of the mA and/or kV according to patient size. Use of iterative reconstruction technique. COMPARISON: None available FINDINGS: Mild diffuse cerebral and cerebellar atrophy is present. There is proportionate dilatation of the v entricular system and sulci in a symmetric fashion. There is prominence of the extraaxial spaces sec ondary to atrophy. There is no evidence of intracranial hemorrhage, mass effect or midline shift. N o abnormal intra-axial or extra-axial fluid collections are seen. The density of the brain is irwin l and the alfonso/white matter differentiation is well preserved. Mild patchy diffuse deep white matte r microangiopathic ischemic change is seen. The osseous structures are unremarkable. Paranasal s inuses are clear. IMPRESSION: 1. No intracranial hemorrhage, mass effect or midline shift. 2. Mild generalized atrophy. Mild microangiopathic ischemic change. RPTAT: BB .Heidy Rdz MD, Date Time Electronically viewed and signed by .Heidy Rdz MD, on 08/17/2016 08:21 .O/
[2016-08-17 08:30] LABS: FOLATE > 20.0 ng/ml (2.8-20.0)
[2016-08-17] MEDS: MULTIVITAMINS 10 ML, THIAMINE 100 MG, FOLIC ACID 1 MG in SOD CHLORIDE 0.9% 1,000 ML IVPB SCH (09:32)
[2016-08-17] MEDS ORDERED: LORAZEPAM 1 MG TAB PO PRN (12:30)
[2016-08-17] MEDS: SOD CHLORIDE 0.45% 1,000 ML IV SCH ×2 (14:00→17:34)
[2016-08-17] MEDS ORDERED: LORAZEPAM 0.5 MG TAB PO PRN (15:30)
[2016-08-17 20:59] VITALS: BP 113/70; RESP 20
[2016-08-18 02:00] VITALS: BP 117/81; PULSE 76; RESP 18
[2016-08-18 02:25] VITALS: BP 117/75; RESP 20
[2016-08-18] MEDS: SOD CHLORIDE 0.45% 1,000 ML IV SCH ×2 (03:20→17:01)
[2016-08-18 06:17] LABS: ADD SCAN DIFF NO
[2016-08-18 06:29] LABS: ABNORMAL IP MESSAGE 1; BASOPHILS % 0.3 % (0.0-2.0); EOSINOPHILS # 0.1 10^3/ul (0.0-0.5); EOSINOPHILS % 0.6 % (0.0-7.0); HEMATOCRIT 35.9 % (42.0-52.0); HEMOGLOBIN 11.3 g/dl (14.0-18.0); LYMPHOCYTES # 1.9 10^3/ul (0.8-2.9); LYMPHOCYTES % 24.3 % (15.0-51.0); MEAN CORPUSCULAR HEMOGLOBIN 29.1 pg (29.0-33.0); MEAN CORPUSCULAR HGB CONC 31.5 g/dl (32.0-37.0); MEAN CORPUSCULAR VOLUME 92.5 fl (82.0-101.0); MEAN PLATELET VOLUME 13.3 fl (7.4-10.4); MONOCYTE # 0.6 10^3/ul (0.3-0.9); MONOCYTES % 8.2 % (0.0-11.0); NEUTROPHIL # 5.2 10^3/ul (1.6-7.5); NEUTROPHILS % 66.3 % (39.0-77.0); PLATELET COUNT 136 10^3/UL (140-415); RED BLOOD COUNT 3.88 10^6/ul (4.70-6.10); RED CELL DISTRIBUTION WIDTH 13.6 % (11.5-14.5); WHITE BLOOD COUNT 7.8 10^3/ul (4.8-10.8)
[2016-08-18 06:44] LABS: CALCIUM 9.2 mg/dl (8.4-10.2); CREATININE 0.85 mg/dl (0.61-1.24); PHOSPHORUS 2.7 mg/dl (2.5-4.9); POTASSIUM 3.4 mmol/L (3.5-5.1)
[2016-08-18 06:47] LABS: CHOL/HDL RATIO 3.1 RATIO; CHOLESTEROL 161 mg/dl (100-200); CREATINE KINASE 95 IU/L (23-200); HDL CHOLESTEROL 51 mg/dl (30-78); TRIGLYCERIDES 55 mg/dl (0-149)
[2016-08-18 06:48] LABS: ALBUMIN 3.5 g/dl (3.3-4.9); ALBUMIN/GLOBULIN RATIO 1.84; BILIRUBIN,INDIRECT 0.5 mg/dl (0-1.1); BILIRUBIN,TOTAL 0.5 mg/dl (0.2-1.3); CALCIUM 9.4 mg/dl (8.4-10.2); CREATININE 0.8 mg/dl (0.61-1.24); MAGNESIUM 1.9 mg/dl (1.7-2.5); POTASSIUM 3.4 mmol/L (3.5-5.1); TOTAL PROTEIN 5.4 g/dl (6.1-8.1)
[2016-08-18 07:00] LABS: CK-MB 1.09 ng/ml (0.0-2.4); TROPONIN-I < 0.012 ng/ml (0.00-0.12)
[2016-08-18] MEDS: PANTOPRAZOLE (EC) 40 MG TAB PO SCH (07:00)
[2016-08-18 07:18] LABS: THYROID STIMULATING HORMONE 2.15 MIU/L (0.465-4.680)
[2016-08-18 08:00] VITALS: BP 112/65; RESP 20
[2016-08-18] MEDS: OLANZAPINE 5 MG TAB PO SCH (09:00)
[2016-08-18] MEDS: MULTIVITAMINS 10 ML, THIAMINE 100 MG, FOLIC ACID 1 MG in SOD CHLORIDE 0.9% 1,000 ML IVPB SCH (09:03)
[2016-08-18] MEDS ORDERED: POTASSIUM CHLORIDE (SR) 20 MEQ TAB PO STA (10:05)
--- NOTE | 2016-08-18 10:09 | PN ---
Date/Time of Note Date/Time of Note DATE: 08/18/16 TIME: 10:06 Assessment/Plan Lines/Catheters [facility]from [facility] Peripheral IV Urinary Cath still in place: No Assessment/Plan Chief Complaint/Hosp Course 1. Nonoliguric acute kidney injury -Etiology was hemodynamics, renal function is improved with IV fluids -Continue current treatment plan renally dose meds avoid nephrotoxins 2. Hypernatremia etiology secondary insensible losses. Improved with hypotonic fluids. Continue to monitor- 3. Hypokalemia we will replete potassium chloride 4. Encephalopathy -Questionable EtOH use -Monitor 5. Anemia -Monitor H&H level Problems: Subjective 24 Hr Interval Summary Free Text/Dictation Patient seen and examined to No events overnight Exam/Review of Systems Vital Signs Vitals Vital Signs Date Time Temp Pulse Resp B/P Pulse Ox O2 Delivery O2 Flow Rate FiO2 08/18/16 08:00 98.6 59 20 112/65 96 08/17/16 06:30 Room Air Intake and Output 08/17/16 08/17/16 08/18/16 15:00 23:00 07:00 Intake Total 2211.2 ml 1550 ml Balance 2211.2 ml 1550 ml Exam General: Patient is lying in bed, appears lethargic and somnolent however he is easily arousable. HEENT: Right facial abrasion, mucous membranes dry Neck: Supple with full range of motion. No rigidity or meningismus Chest: Nontender Lungs: Clear to auscultation bilaterally no crackles rales or wheezing Heart: Normal S1-S2, Regular rhythm and rate. No murmur, S3, or S4 Abdomen: Soft , nontender, nondistended , bowel sounds are present. No guarding no rebound tenderness , No masses or organomegaly. Extremities: Normal to inspection, no edema no cyanosis Neurologic: Normal mental status, speech normal, cranial nerves II through XII are intact, motor and sensory are intact, no focal weakness Skin: Tenting of the skin, mild redness of the face and bilateral arms possibly secondary to sunburn Results Result Diagram: 08/18/16 0603 08/18/16 0603 Results 24 hrs Laboratory Tests Test 08/17/16 10:29 08/18/16 06:03 Lactic Acid Level 1.2 White Blood Count 7.8 # Red Blood Count 3.88 L Hemoglobin 11.3 L Hematocrit 35.9 L Mean Corpuscular Volume 92.5 Mean Corpuscular Hemoglobin 29.1 Mean Corpuscular Hemoglobin Concent 31.5 L Red Cell Distribution Width 13.6 Platelet Count 136 #L Mean Platelet Volume 13.3 H Neutrophils % 66.3 Lymphocytes % 24.3 Monocytes % 8.2 Eosinophils % 0.6 Basophils % 0.3 Nucleated Red Blood Cells % 0.0 Neutrophils # 5.2 Lymphocytes # 1.9 Monocytes # 0.6 Eosinophils # 0.1 Basophils # 0.0 Nucleated Red Blood Cells # 0.0 Sodium Level 144 Potassium Level 3.4 L Chloride Level 116 H Carbon Dioxide Level 29 Anion Gap 2 L Blood Urea Nitrogen 26 H Creatinine 0.80 Glucose Level 107 Hemoglobin A1c 5.5 Calcium Level 9.4 Phosphorus Level 2.7 Magnesium Level 1.9 Total Bilirubin 0.5 Direct Bilirubin 0.00 Indirect Bilirubin 0.5 Aspartate Amino Transf (AST/SGOT) 31 Alanine Aminotransferase (ALT/SGPT) 38 Alkaline Phosphatase 50 Creatine Kinase 95 # Creatine Kinase Index 1.1 Creatinine Kinase MB (Mass) 1.09 Troponin I < 0.012 Total Protein 5.4 L Albumin 3.5 Globulin 1.90 Albumin/Globulin Ratio 1.84 Triglycerides Level 55 Cholesterol Level 161 LDL Cholesterol, Calculated 99 HDL Cholesterol 51 Cholesterol/HDL Ratio 3.1 Thyroid Stimulating Hormone (TSH) 2.150 Free Thyroxine 0.78 Free Thyroxine Index 1.89 Thyroxine (T4) 5.4 L Triiodothyronine (T3) Uptake 35.0 Medications Medications Current Medications Ondansetron HCl (Zofran Inj) 4 mg Q6H PRN IV NAUSEA AND/OR VOMITING; Start 01/22 at 03:30 Acetaminophen 650 mg 650 mg Q6H PRN PO PAIN LEVEL 1-3 OR FEVER; Start 08/17/16 at 03:30 Multivitamins/ Thiamine HCl/ Folic Acid/Sodium Chloride (Mvi Adult/ Vitamin B1/ Folic Acid/NS) 1,011.2 ml @ 125 mls/ hr DAILY@09 IVPB Last administered on 09:03; Admin Dose 125 MLS/HR; Start 08/17/16 at 09:00 Pantoprazole (Protonix Tab) 40 mg DAILY@06 PO Last administered on 08/18/16 07 :00; Admin Dose 40 MG; Start 08/18/16 at 06:00 Lorazepam 1 mg 1 mg Q6H PRN PO AGITATION/ANXIETY; Start 08/17/16 at 12:30 Sodium Chloride (1/2 NS) 1,000 ml @ 75 mls/hr [id number] IV Last administered on 08/17/16 17:34; Admin Dose 75 MLS/HR; Start 08/17/16 at 14:00 Olanzapine (Zyprexa) 5 mg DAILY PO Last administered on 08/18/16 09:00; Admin Dose 5 MG; Start 08/18/16 at 09:00 Lorazepam (Ativan) 0.5 mg Q6H PRN PO ANXIETY; Start 08/17/16 at 15:30 HEATHER LEBLANC DO Aug 18, 2016 10:09
[2016-08-18 14:05] VITALS: BP 122/68; RESP 18
--- NOTE | 2016-08-18 16:14 | PN ---
Date/Time of Note Date/Time of Note DATE: 08/18/16 TIME: 16:12 Assessment/Plan VTE Prophylaxis VTE Prophylaxis Intervention: SCD's Lines/Catheters IV Catheter Type (from [facility]): Saline Lock Urinary Cath still in place: No Assessment/Plan Chief Complaint/Hosp Course 1. Acute encephalopathy. Most probably toxic metabolic encephalopathy. Brain CT scan negative for any acute intracranial findings. 2. Hypernatremia. Most probably secondary to dehydration. Improving with IV fluids. 3. Nonoliguric acute kidney injury. Most likely from dehydration. Improved with IV hydration. Nephrology following the patient. 4. Status post fall. Etiology of fall is unclear. Brain CT negative. Will obtain physical therapy evaluation. 5. Schizophrenia. The patient on antipsychotics. 6. Leukocytosis. Possibly reactive. Resolved. 7. Debility. Will obtain physical therapy evaluation. 8. Homelessness. Involve social work on the case. 9. Fluids, electrolytes, and nutrition. Regular diet. 10. DVT prophylaxis. Bilateral sequential compression devices. 11. Gastrointestinal prophylaxis. Histamine 2 receptor blockers. 12. Plan. Current management. Obtain physical therapy evaluation. Case discussed with Dr. Hobson. Problems: Subjective 24 Hr Interval Summary Free Text/Dictation Denies any pain. Exam/Review of Systems Vital Signs Vitals Vital Signs Date Time Temp Pulse Resp B/P Pulse Ox O2 Delivery O2 Flow Rate FiO2 08/18/16 14:05 99.0 69 18 122/68 96 08/17/16 06:30 Room Air Intake and Output 08/17/16 08/17/16 08/18/16 15:00 23:00 07:00 Intake Total 2211.2 ml 1550 ml Balance 2211.2 ml 1550 ml Exam General: Thin, frail looking 61 year-old male lying in bed in no apparent distress. HEENT: Normocephalic, atraumatic. Eyes: Anicteric sclerae, conjunctivae clear. ENT: Nasal septum midline, oral mucosa moist. Neck supple, no JVD noticed. Respiratory: Bilaterally clear breath sounds. No use of accessory muscles of respiration. No adventitious breath sounds. Cardiovascular: S1, S2 heard. No murmurs or gallops. Abdomen: Soft, nontender, and nondistended. Bowel sounds positive in all 4 quadrants. Genitourinary: Deferred. Extremities: No cyanosis, no clubbing, no edema. Peripheral pulses palpable. Neurologic: Cranial nerves II through XII grossly intact. The patient is awake, alert, and oriented. Skin: Normal skin turgor. Hyperpigmentation of the face and sun exposed areas. Psychologic: Flat affect. Results Result Diagram: 08/18/16 0603 08/18/16 0603 Results 24 hrs Laboratory Tests Test 08/18/16 06:03 White Blood Count 7.8 # Red Blood Count 3.88 L Hemoglobin 11.3 L Hematocrit 35.9 L Mean Corpuscular Volume 92.5 Mean Corpuscular Hemoglobin 29.1 Mean Corpuscular Hemoglobin Concent 31.5 L Red Cell Distribution Width 13.6 Platelet Count 136 #L Mean Platelet Volume 13.3 H Neutrophils % 66.3 Lymphocytes % 24.3 Monocytes % 8.2 Eosinophils % 0.6 Basophils % 0.3 Nucleated Red Blood Cells % 0.0 Neutrophils # 5.2 Lymphocytes # 1.9 Monocytes # 0.6 Eosinophils # 0.1 Basophils # 0.0 Nucleated Red Blood Cells # 0.0 Sodium Level 144 Potassium Level 3.4 L Chloride Level 116 H Carbon Dioxide Level 29 Anion Gap 2 L Blood Urea Nitrogen 26 H Creatinine 0.80 Glucose Level 107 Hemoglobin A1c 5.5 Calcium Level 9.4 Phosphorus Level 2.7 Magnesium Level 1.9 Total Bilirubin 0.5 Direct Bilirubin 0.00 Indirect Bilirubin 0.5 Aspartate Amino Transf (AST/SGOT) 31 Alanine Aminotransferase (ALT/SGPT) 38 Alkaline Phosphatase 50 Creatine Kinase 95 # Creatine Kinase Index 1.1 Creatinine Kinase MB (Mass) 1.09 Troponin I < 0.012 Total Protein 5.4 L Albumin 3.5 Globulin 1.90 Albumin/Globulin Ratio 1.84 Triglycerides Level 55 Cholesterol Level 161 LDL Cholesterol, Calculated 99 HDL Cholesterol 51 Cholesterol/HDL Ratio 3.1 Thyroid Stimulating Hormone (TSH) 2.150 Free Thyroxine 0.78 Free Thyroxine Index 1.89 Thyroxine (T4) 5.4 L Triiodothyronine (T3) Uptake 35.0 Medications Medications Current Medications Ondansetron HCl (Zofran Inj) 4 mg Q6H PRN IV NAUSEA AND/OR VOMITING; Start 01/22 at 03:30 Acetaminophen 650 mg 650 mg Q6H PRN PO PAIN LEVEL 1-3 OR FEVER; Start 08/17/16 at 03:30 Multivitamins/ Thiamine HCl/ Folic Acid/Sodium Chloride (Mvi Adult/ Vitamin B1/ Folic Acid/NS) 1,011.2 ml @ 125 mls/ hr DAILY@09 IVPB Last administered on 09:03; Admin Dose 125 MLS/HR; Start 08/17/16 at 09:00 Pantoprazole (Protonix Tab) 40 mg DAILY@06 PO Last administered on 08/18/16 07 :00; Admin Dose 40 MG; Start 08/18/16 at 06:00 Lorazepam 1 mg 1 mg Q6H PRN PO AGITATION/ANXIETY; Start 08/17/16 at 12:30 Sodium Chloride (1/2 NS) 1,000 ml @ 50 mls/hr Q20H IV Last administered on 17:34; Admin Dose 75 MLS/HR; Start 08/17/16 at 14:00 Olanzapine (Zyprexa) 5 mg DAILY PO Last administered on 08/18/16 09:00; Admin Dose 5 MG; Start 08/18/16 at 09:00 Lorazepam (Ativan) 0.5 mg Q6H PRN PO ANXIETY; Start 08/17/16 at 15:30 SHILPA FONG NP Aug 18, 2016 16:14
[2016-08-18 20:34] VITALS: BP 115/72; RESP 18
[2016-08-19 02:00] VITALS: BP 144/86; RESP 18
[2016-08-19 05:46] LABS: ADD SCAN DIFF NO
[2016-08-19] MEDS: SOD CHLORIDE 0.45% 1,000 ML IV SCH ×2 (05:49→19:36)
[2016-08-19] MEDS: PANTOPRAZOLE (EC) 40 MG TAB PO SCH (05:49)
[2016-08-19 05:51] LABS: ABNORMAL IP MESSAGE 1; BASOPHILS % 0.5 % (0.0-2.0); EOSINOPHILS # 0.2 10^3/ul (0.0-0.5); EOSINOPHILS % 1.9 % (0.0-7.0); HEMATOCRIT 35.2 % (42.0-52.0); HEMOGLOBIN 11.2 g/dl (14.0-18.0); LYMPHOCYTES # 2.1 10^3/ul (0.8-2.9); LYMPHOCYTES % 24.3 % (15.0-51.0); MEAN CORPUSCULAR HGB CONC 31.8 g/dl (32.0-37.0); MEAN CORPUSCULAR VOLUME 91.2 fl (82.0-101.0); MEAN PLATELET VOLUME 13.5 fl (7.4-10.4); MONOCYTE # 0.5 10^3/ul (0.3-0.9); MONOCYTES % 6.1 % (0.0-11.0); NEUTROPHIL # 5.7 10^3/ul (1.6-7.5); NEUTROPHILS % 66.8 % (39.0-77.0); PLATELET COUNT 127 10^3/UL (140-415); RED BLOOD COUNT 3.86 10^6/ul (4.70-6.10); RED CELL DISTRIBUTION WIDTH 13.4 % (11.5-14.5); WHITE BLOOD COUNT 8.5 10^3/ul (4.8-10.8)
[2016-08-19 06:06] LABS: CALCIUM 8.8 mg/dl (8.4-10.2); CREATININE 0.73 mg/dl (0.61-1.24); POTASSIUM 3.3 mmol/L (3.5-5.1)
[2016-08-19 06:07] LABS: MAGNESIUM 1.8 mg/dl (1.7-2.5)
[2016-08-19 06:52] LABS: IRON 50 ug/dl (35-150)
[2016-08-19 07:01] LABS: TOTAL IRON BINDING CAPACITY 232 ug/dl (241-421)
[2016-08-19 07:32] VITALS: BP 128/74; RESP 18
[2016-08-19] MEDS: MULTIVITAMINS 10 ML, THIAMINE 100 MG, FOLIC ACID 1 MG in SOD CHLORIDE 0.9% 1,000 ML IVPB SCH (09:36)
[2016-08-19] MEDS: OLANZAPINE 5 MG TAB PO SCH (09:36)
--- NOTE | 2016-08-19 09:54 | CONS ---
Date/Time of Note Date/Time of Note DATE: 08/19/16 TIME: 09:53 Consult Date/Type/Reason Admit Date/Time Aug 17, 2016 at 02:33 Initial Consult Date Type of Consultation: nephrology Subjective no new events good uop. d/w rn. Objective Vital Signs Date Time Temp Pulse Resp B/P Pulse Ox O2 Delivery O2 Flow Rate FiO2 08/19/16 07:32 98.5 65 18 128/74 97 08/17/16 06:30 Room Air Intake and Output 08/18/16 08/18/16 08/19/16 15:00 23:00 07:00 Intake Total 375 ml 2381.2 ml 1170 ml Output Total 640 ml Balance 375 ml 2381.2 ml 530 ml Results/Medications Result Diagram: 08/19/16 0519 08/19/16 0519 Results 24 hrs Laboratory Tests Test 08/19/16 05:19 White Blood Count 8.5 Red Blood Count 3.86 L Hemoglobin 11.2 L Hematocrit 35.2 L Mean Corpuscular Volume 91.2 Mean Corpuscular Hemoglobin 29.0 Mean Corpuscular Hemoglobin Concent 31.8 L Red Cell Distribution Width 13.4 Platelet Count 127 L Mean Platelet Volume 13.5 H Neutrophils % 66.8 Lymphocytes % 24.3 Monocytes % 6.1 Eosinophils % 1.9 Basophils % 0.5 Nucleated Red Blood Cells % 0.0 Neutrophils # 5.7 Lymphocytes # 2.1 Monocytes # 0.5 Eosinophils # 0.2 Basophils # 0.0 Nucleated Red Blood Cells # 0.0 Sodium Level 141 Potassium Level 3.3 L Chloride Level 112 H Carbon Dioxide Level 28 Anion Gap 4 L Blood Urea Nitrogen 23 H Creatinine 0.73 Glucose Level 105 Calcium Level 8.8 Phosphorus Level 3.0 Magnesium Level 1.8 Iron Level 50 Total Iron Binding Capacity 232 L Percent Iron Saturation 22 Ferritin 34.9 Medications Current Medications Ondansetron HCl (Zofran Inj) 4 mg Q6H PRN IV NAUSEA AND/OR VOMITING; Start 01/22 at 03:30 Acetaminophen 650 mg 650 mg Q6H PRN PO PAIN LEVEL 1-3 OR FEVER; Start 08/17/16 at 03:30 Multivitamins/ Thiamine HCl/ Folic Acid/Sodium Chloride (Mvi Adult/ Vitamin B1/ Folic Acid/NS) 1,011.2 ml @ 125 mls/ hr DAILY@09 IVPB Last administered on 09:36; Admin Dose 125 MLS/HR; Start 08/17/16 at 09:00 Pantoprazole (Protonix Tab) 40 mg DAILY@06 PO Last administered on 08/19/16 05 :49; Admin Dose 40 MG; Start 08/18/16 at 06:00 Lorazepam 1 mg 1 mg Q6H PRN PO AGITATION/ANXIETY; Start 08/17/16 at 12:30 Sodium Chloride (1/2 NS) 1,000 ml @ 50 mls/hr Q20H IV Last administered on 05:49; Admin Dose 50 MLS/HR; Start 08/17/16 at 14:00 Olanzapine (Zyprexa) 5 mg DAILY PO Last administered on 08/19/16 09:36; Admin Dose 5 MG; Start 08/18/16 at 09:00 Lorazepam (Ativan) 0.5 mg Q6H PRN PO ANXIETY; Start 08/17/16 at 15:30 Assessment/Plan Chief Complaint/Hosp Course 1. Nonoliguric acute kidney injury -Etiology was hemodynamics, renal function is improved with IV fluids -Continue current treatment plan renally dose meds avoid nephrotoxins 2. Hypernatremia etiology secondary insensible losses. Improved with hypotonic fluids. Continue to monitor- 3. Hypokalemia we will replete potassium chloride 4. Encephalopathy -Questionable EtOH use -Monitor 5. Anemia -Monitor H&H level Problems: ETHAN FORBES MD Aug 19, 2016 09:53
[2016-08-19] MEDS ORDERED: POTASSIUM CHLORIDE (SR) 8 MEQ CAP PO ONE (10:00)
[2016-08-19] MEDS ORDERED: CLON-412 PO (11:00)
[2016-08-19] MEDS ORDERED: BUPR-75 PO (11:00)
[2016-08-19] MEDS ORDERED: ESCI20TA PO (11:00)
[2016-08-19] MEDS ORDERED: ARIP30TA10 PO (11:00)
--- NOTE | 2016-08-19 12:09 | PN ---
Date/Time of Note Date/Time of Note DATE: 08/19/16 TIME: 12:07 Assessment/Plan VTE Prophylaxis VTE Prophylaxis Intervention: SCD's Lines/Catheters [facility]from [facility]): Saline Lock Urinary Cath still in place: No Assessment/Plan Chief Complaint/Hosp Course 1. Acute encephalopathy. Most probably toxic metabolic encephalopathy. Brain CT scan negative for any acute intracranial findings. 2. Hypernatremia. Most probably secondary to dehydration. Improving with IV fluids. 3. Nonoliguric acute kidney injury. Most likely from dehydration. Improved with IV hydration. Nephrology following the patient. 4. Status post fall. Etiology of fall is unclear. Brain CT negative. Will obtain physical therapy evaluation. 5. Schizophrenia. The patient on antipsychotics. 6. Leukocytosis. Possibly reactive. Resolved. 7. Debility. Will obtain physical therapy evaluation. 8. Homelessness. Involve social work on the case. 9. Fluids, electrolytes, and nutrition. Regular diet. 10. DVT prophylaxis. Bilateral sequential compression devices. 11. Gastrointestinal prophylaxis. Histamine 2 receptor blockers. 12. Plan. Continue current management. Await physical therapy evaluation. Replete potassium. Case discussed with Dr. Hobson. Problems: Subjective 24 Hr Interval Summary Free Text/Dictation Vital signs stable. Exam/Review of Systems Vital Signs Vitals Vital Signs Date Time Temp Pulse Resp B/P Pulse Ox O2 Delivery O2 Flow Rate FiO2 08/19/16 07:32 98.5 65 18 128/74 97 08/17/16 06:30 Room Air Intake and Output 08/18/16 08/18/16 08/19/16 15:00 23:00 07:00 Intake Total 375 ml 2381.2 ml 1170 ml Output Total 640 ml Balance 375 ml 2381.2 ml 530 ml Exam General: Thin, frail looking 61 year-old male lying in bed in no apparent distress. HEENT: Normocephalic, atraumatic. Eyes: Anicteric sclerae, conjunctivae clear. ENT: Nasal septum midline, oral mucosa moist. Neck supple, no JVD noticed. Respiratory: Bilaterally clear breath sounds. No use of accessory muscles of respiration. No adventitious breath sounds. Cardiovascular: S1, S2 heard. No murmurs or gallops. Abdomen: Soft, nontender, and nondistended. Bowel sounds positive in all 4 quadrants. Genitourinary: Deferred. Extremities: No cyanosis, no clubbing, no edema. Peripheral pulses palpable. Neurologic: Cranial nerves II through XII grossly intact. The patient is awake, alert, and oriented. Skin: Normal skin turgor. Hyperpigmentation of the face and sun exposed areas. Psychologic: Flat affect. Results Result Diagram: 08/19/1651808/19/16518 Results 24 hrs Laboratory Tests Test 08/19/16 05:19 White Blood Count 8.5 Red Blood Count 3.86 L Hemoglobin 11.2 L Hematocrit 35.2 L Mean Corpuscular Volume 91.2 Mean Corpuscular Hemoglobin 29.0 Mean Corpuscular Hemoglobin Concent 31.8 L Red Cell Distribution Width 13.4 Platelet Count 127 L Mean Platelet Volume 13.5 H Neutrophils % 66.8 Lymphocytes % 24.3 Monocytes % 6.1 Eosinophils % 1.9 Basophils % 0.5 Nucleated Red Blood Cells % 0.0 Neutrophils # 5.7 Lymphocytes # 2.1 Monocytes # 0.5 Eosinophils # 0.2 Basophils # 0.0 Nucleated Red Blood Cells # 0.0 Sodium Level 141 Potassium Level 3.3 L Chloride Level 112 H Carbon Dioxide Level 28 Anion Gap 4 L Blood Urea Nitrogen 23 H Creatinine 0.73 Glucose Level 105 Calcium Level 8.8 Phosphorus Level 3.0 Magnesium Level 1.8 Iron Level 50 Total Iron Binding Capacity 232 L Percent Iron Saturation 22 Ferritin 34.9 Medications Medications Current Medications Ondansetron HCl (Zofran Inj) 4 mg Q6H PRN IV NAUSEA AND/OR VOMITING; Start 01/22 at 03:30 Acetaminophen 650 mg 650 mg Q6H PRN PO PAIN LEVEL 1-3 OR FEVER; Start 08/17/16 at 03:30 Multivitamins/ Thiamine HCl/ Folic Acid/Sodium Chloride (Mvi Adult/ Vitamin B1/ Folic Acid/NS) 1,011.2 ml @ 125 mls/ hr DAILY@09 IVPB Last administered on 09:36; Admin Dose 125 MLS/HR; Start 08/17/16 at 09:00 Pantoprazole (Protonix Tab) 40 mg DAILY@06 PO Last administered on 08/19/16 05 :49; Admin Dose 40 MG; Start 08/18/16 at 06:00 Lorazepam 1 mg 1 mg Q6H PRN PO AGITATION/ANXIETY; Start 08/17/16 at 12:30 Sodium Chloride (1/2 NS) 1,000 ml @ 50 mls/hr Q20H IV Last administered on t 05:49; Admin Dose 50 MLS/HR; Start 08/17/16 at 14:00 Lorazepam (Ativan) 0.5 mg Q6H PRN PO ANXIETY; Start 08/17/16 at 15:30 Aripiprazole (Abilify) 30 mg QPM PO ; Start 08/19/16 at 21:00 Bupropion HCl (Wellbutrin Xl) 450 mg DAILY PO ; Start 08/19/16 at 12:30 Clonazepam (Klonopin) 1 mg BID PO ; Start 08/19/16 at 12:30 Escitalopram Oxalate (Lexapro) 20 mg DAILY PO ; Start 08/19/16 at 12:30 SHILPA FONG NP Aug 19, 2016 12:08
[2016-08-19] MEDS: clonAZEPAM 0.5 MG TAB PO SCH ×2 (13:16→20:26)
[2016-08-19] MEDS: ESCITALOPRAM 10 MG TAB PO SCH (13:16)
[2016-08-19] MEDS: BUPROPION (XL) 150 MG TAB PO SCH (13:17)
[2016-08-19 14:00] VITALS: BP 130/80; RESP 18
[2016-08-19 19:42] VITALS: BP 123/72; RESP 18
[2016-08-19] MEDS: ARIPIPRAZOLE 10 MG TAB PO SCH (20:26)
[2016-08-20 02:00] VITALS: BP 136/82; RESP 18
[2016-08-20] MEDS: PANTOPRAZOLE (EC) 40 MG TAB PO SCH (05:09)
[2016-08-20 06:56] LABS: ADD SCAN DIFF NO
[2016-08-20 07:27] LABS: CALCIUM 8.8 mg/dl (8.4-10.2); CREATININE 0.69 mg/dl (0.61-1.24)
[2016-08-20 07:55] LABS: MAGNESIUM 1.8 mg/dl (1.7-2.5)
[2016-08-20 08:05] VITALS: BP 126/75; RESP 18
[2016-08-20] MEDS: ESCITALOPRAM 10 MG TAB PO SCH (08:39)
[2016-08-20] MEDS: MULTIVITAMINS 10 ML, THIAMINE 100 MG, FOLIC ACID 1 MG in SOD CHLORIDE 0.9% 1,000 ML IVPB SCH (08:39)
--- NOTE | 2016-08-20 08:39 | CONS ---
Date/Time of Note Date/Time of Note DATE: 08/20/16 TIME: 08:37 Consult Date/Type/Reason Admit Date/Time Aug 17, 2016 at 02:33 Initial Consult Date Type of Consultation: nephrology Subjective Patient seen and examined to No events overnight Exam HEENT: Right facial abrasion, mucous membranes dry Neck: Supple with full range of motion. No rigidity or meningismus Chest: Nontender Lungs: Clear to auscultation bilaterally no crackles rales or wheezing Heart: Normal S1-S2, Regular rhythm and rate. No murmur, S3, or S4 Abdomen: Soft , nontender, nondistended , bowel sounds are present. No guarding no rebound tenderness , No masses or organomegaly. Extremities: Normal to inspection, no edema no cyanosis Neurologic: Normal mental status, speech normal, cranial nerves II through XII are intact, motor and sensory are intact, no focal weakness Skin: Tenting of the skin, mild redness of the face and bilateral arms possibly secondary to sunburn Objective Vital Signs Date Time Temp Pulse Resp B/P Pulse Ox O2 Delivery O2 Flow Rate FiO2 08/20/16 08:05 98.6 54 18 126/75 99 08/17/16 06:30 Room Air Intake and Output 08/19/16 08/19/16 08/20/16 15:00 23:00 07:00 Intake Total 2011.2 ml 1050 ml Balance 2011.2 ml 1050 ml Results/Medications Result Diagram: 08/19/16 0519 08/20/16 0556 Results 24 hrs Laboratory Tests Test 08/20/16 05:56 Sodium Level 144 Potassium Level 4.0 Chloride Level 106 Carbon Dioxide Level 26 Anion Gap 16 # Blood Urea Nitrogen 17 Creatinine 0.69 Glucose Level 91 Calcium Level 8.8 Phosphorus Level 4.0 Magnesium Level 1.8 Medications Current Medications Ondansetron HCl (Zofran Inj) 4 mg Q6H PRN IV NAUSEA AND/OR VOMITING; Start 01/22 at 03:30 Acetaminophen 650 mg 650 mg Q6H PRN PO PAIN LEVEL 1-3 OR FEVER; Start 08/17/16 at 03:30 Multivitamins/ Thiamine HCl/ Folic Acid/Sodium Chloride (Mvi Adult/ Vitamin B1/ Folic Acid/NS) 1,011.2 ml @ 125 mls/ hr DAILY@09 IVPB Last administered on t 09:36; Admin Dose 125 MLS/HR; Start 08/17/16 at 09:00 Pantoprazole (Protonix Tab) 40 mg DAILY@06 PO Last administered on 08/20/16 05 :09; Admin Dose 40 MG; Start 08/18/16 at 06:00 Lorazepam 1 mg 1 mg Q6H PRN PO AGITATION/ANXIETY; Start 08/17/16 at 12:30 Sodium Chloride (1/2 NS) 1,000 ml @ 50 mls/hr Q20H IV Last administered on 19:36; Admin Dose 50 MLS/HR; Start 08/17/16 at 14:00 Lorazepam (Ativan) 0.5 mg Q6H PRN PO ANXIETY; Start 08/17/16 at 15:30 Aripiprazole (Abilify) 30 mg QPM PO Last administered on 08/19/16 20:26; Admin Dose 30 MG; Start 08/19/16 at 21:00 Bupropion HCl (Wellbutrin Xl) 450 mg DAILY PO Last administered on 08/19/16 13 :17; Admin Dose 450 MG; Start 08/19/16 at 12:30 Clonazepam (Klonopin) 1 mg BID PO Last administered on 08/19/16 20:26; Admin Dose 1 MG; Start 08/19/16 at 12:30 Escitalopram Oxalate (Lexapro) 20 mg DAILY PO Last administered on 08/19/16 13 :16; Admin Dose 20 MG; Start 08/19/16 at 12:30 Assessment/Plan Chief Complaint/Hosp Course 1. Nonoliguric acute kidney injury -Etiology was hemodynamics, renal function is improved with IV fluids -Continue current treatment plan renally dose meds avoid nephrotoxins 2. Hypernatremia etiology secondary insensible losses. Improved with hypotonic fluids. Continue to monitor- 3. Hypokalemia sp replete potassium chloride 4. Encephalopathy -Questionable EtOH use -Monitor 5. Anemia -Monitor H&H level improved. will see prn. Problems: MARY SIMMONS MD Aug 20, 2016 08:39
[2016-08-20] MEDS: BUPROPION (XL) 150 MG TAB PO SCH (08:40)
[2016-08-20] MEDS: clonAZEPAM 0.5 MG TAB PO SCH ×2 (08:41→21:12)
[2016-08-20 08:55] LABS: BASOPHILS % 0.4 % (0.0-2.0); EOSINOPHILS # 0.2 10^3/ul (0.0-0.5); EOSINOPHILS % 2.7 % (0.0-7.0); HEMATOCRIT 37.7 % (42.0-52.0); HEMOGLOBIN 12.1 g/dl (14.0-18.0); LYMPHOCYTES # 1.3 10^3/ul (0.8-2.9); LYMPHOCYTES % 17.4 % (15.0-51.0); MEAN CORPUSCULAR HEMOGLOBIN 29.1 pg (29.0-33.0); MEAN CORPUSCULAR HGB CONC 32.1 g/dl (32.0-37.0); MEAN CORPUSCULAR VOLUME 90.6 fl (82.0-101.0); MEAN PLATELET VOLUME 12.4 fl (7.4-10.4); MONOCYTE # 0.4 10^3/ul (0.3-0.9); MONOCYTES % 4.9 % (0.0-11.0); NEUTROPHIL # 5.7 10^3/ul (1.6-7.5); NEUTROPHILS % 74.3 % (39.0-77.0); PLATELET COUNT 105 10^3/UL (140-415); RED BLOOD COUNT 4.16 10^6/ul (4.70-6.10); WHITE BLOOD COUNT 7.7 10^3/ul (4.8-10.8)
--- NOTE | 2016-08-20 13:44 | PN ---
Date/Time of Note Date/Time of Note DATE: 08/20/16 TIME: 13:43 Assessment/Plan VTE Prophylaxis VTE Prophylaxis Intervention: SCD's Lines/Catheters IV Catheter Type (from [facility]): Saline Lock Urinary Cath still in place: No Assessment/Plan Chief Complaint/Hosp Course 1. Acute encephalopathy. Most probably toxic metabolic encephalopathy. Brain CT scan negative for any acute intracranial findings. 2. Hypernatremia. Most probably secondary to dehydration. Improving with IV fluids. 3. Nonoliguric acute kidney injury. Most likely from dehydration. Improved with IV hydration. Nephrology following the patient. 4. Status post fall. Etiology of fall is unclear. Brain CT negative. Will obtain physical therapy evaluation. 5. Schizophrenia. The patient on antipsychotics. 6. Leukocytosis. Possibly reactive. Resolved. 7. Debility. Will obtain physical therapy evaluation. 8. Homelessness. Social work on the case. 9. Fluids, electrolytes, and nutrition. Regular diet. 10. DVT prophylaxis. Bilateral sequential compression devices. 11. Gastrointestinal prophylaxis. Histamine 2 receptor blockers. 12. Plan. Continue current management. Await physical therapy evaluation. Case discussed with Dr. Hobson. Problems: Subjective 24 Hr Interval Summary Free Text/Dictation No changes in status. Exam/Review of Systems Vital Signs Vitals Vital Signs Date Time Temp Pulse Resp B/P Pulse Ox O2 Delivery O2 Flow Rate FiO2 08/20/16 08:05 98.6 54 18 126/75 99 08/17/16 06:30 Room Air Intake and Output 08/19/16 08/19/16 08/20/16 15:00 23:00 07:00 Intake Total 2010.2 ml 1050 ml Balance 2010.2 ml 1050 ml Exam General: Thin, frail looking 61 year-old male lying in bed in no apparent distress. HEENT: Normocephalic, atraumatic. Eyes: Anicteric sclerae, conjunctivae clear. ENT: Nasal septum midline, oral mucosa moist. Neck supple, no JVD noticed. Respiratory: Bilaterally clear breath sounds. No use of accessory muscles of respiration. No adventitious breath sounds. Cardiovascular: S1, S2 heard. No murmurs or gallops. Abdomen: Soft, nontender, and nondistended. Bowel sounds positive in all 4 quadrants. Genitourinary: Deferred. Extremities: No cyanosis, no clubbing, no edema. Peripheral pulses palpable. Neurologic: Cranial nerves II through XII grossly intact. The patient is awake, alert, and oriented. Skin: Normal skin turgor. Hyperpigmentation of the face and sun exposed areas. Psychologic: Flat affect. Results Result Diagram: 08/20/16 0800 08/20/16 0556 Results 24 hrs Laboratory Tests Test 08/20/16 05:56 08/20/16 08:00 Sodium Level 144 Potassium Level 4.0 Chloride Level 106 Carbon Dioxide Level 26 Anion Gap 16 # Blood Urea Nitrogen 17 Creatinine 0.69 Glucose Level 91 Calcium Level 8.8 Phosphorus Level 4.0 Magnesium Level 1.8 White Blood Count 7.7 Red Blood Count 4.16 L Hemoglobin 12.1 L Hematocrit 37.7 L Mean Corpuscular Volume 90.6 Mean Corpuscular Hemoglobin 29.1 Mean Corpuscular Hemoglobin Concent 32.1 Red Cell Distribution Width 13.0 Platelet Count 105 L Mean Platelet Volume 12.4 H Neutrophils % 74.3 Lymphocytes % 17.4 Monocytes % 4.9 Eosinophils % 2.7 Basophils % 0.4 Nucleated Red Blood Cells % 0.0 Neutrophils # 5.7 Lymphocytes # 1.3 Monocytes # 0.4 Eosinophils # 0.2 Basophils # 0.0 Nucleated Red Blood Cells # 0.0 Medications Medications Current Medications Ondansetron HCl (Zofran Inj) 4 mg Q6H PRN IV NAUSEA AND/OR VOMITING; Start 01/22 at 03:30 Acetaminophen 650 mg 650 mg Q6H PRN PO PAIN LEVEL 1-3 OR FEVER; Start 08/17/16 at 03:30 Multivitamins/ Thiamine HCl/ Folic Acid/Sodium Chloride (Mvi Adult/ Vitamin B1/ Folic Acid/NS) 1,011.2 ml @ 125 mls/ hr DAILY@09 IVPB Last administered on 08:39; Admin Dose 125 MLS/HR; Start 08/17/16 at 09:00 Pantoprazole (Protonix Tab) 40 mg DAILY@06 PO Last administered on 08/20/16 05 :09; Admin Dose 40 MG; Start 08/18/16 at 06:00 Lorazepam 1 mg 1 mg Q6H PRN PO AGITATION/ANXIETY; Start 08/17/16 at 12:30 Sodium Chloride (1/2 NS) 1,000 ml @ 50 mls/hr Q20H IV Last administered on 19:36; Admin Dose 50 MLS/HR; Start 08/17/16 at 14:00 Lorazepam (Ativan) 0.5 mg Q6H PRN PO ANXIETY; Start 08/17/16 at 15:30 Aripiprazole (Abilify) 30 mg QPM PO Last administered on 08/19/16 20:26; Admin Dose 30 MG; Start 08/19/16 at 21:00 Bupropion HCl (Wellbutrin Xl) 450 mg DAILY PO Last administered on 08/20/16 08 :40; Admin Dose 450 MG; Start 08/19/16 at 12:30 Clonazepam (Klonopin) 1 mg BID PO Last administered on 08/20/16 08:41; Admin Dose 1 MG; Start 08/19/16 at 12:30 Escitalopram Oxalate (Lexapro) 20 mg DAILY PO Last administered on 08/20/16 08 :39; Admin Dose 20 MG; Start 08/19/16 at 12:30 SHILPA FONG NP Aug 20, 2016 13:44
[2016-08-20 15:59] VITALS: BP 118/70; RESP 18
[2016-08-20] MEDS: SOD CHLORIDE 0.45% 1,000 ML IV SCH (17:09)
[2016-08-20 19:42] VITALS: BP 131/80; RESP 18
[2016-08-20] MEDS: ARIPIPRAZOLE 10 MG TAB PO SCH (21:12)
[2016-08-21 02:00] VITALS: BP 128/80; RESP 20
[2016-08-21] MEDS: PANTOPRAZOLE (EC) 40 MG TAB PO SCH (05:52)
[2016-08-21 07:42] VITALS: BP 128/81; RESP 19
[2016-08-21] MEDS: ESCITALOPRAM 10 MG TAB PO SCH (09:04)
[2016-08-21] MEDS: MULTIVITAMINS 10 ML, THIAMINE 100 MG, FOLIC ACID 1 MG in SOD CHLORIDE 0.9% 1,000 ML IVPB SCH (09:04)
[2016-08-21] MEDS: BUPROPION (XL) 150 MG TAB PO SCH (09:04)
[2016-08-21] MEDS: clonAZEPAM 0.5 MG TAB PO SCH ×2 (09:05→22:33)
[2016-08-21 14:00] VITALS: BP 116/69; RESP 19
--- NOTE | 2016-08-21 14:05 | PN ---
Date/Time of Note Date/Time of Note DATE: 08/21/16 TIME: 14:04 Assessment/Plan VTE Prophylaxis VTE Prophylaxis Intervention: SCD's Lines/Catheters IV Catheter Type (from [facility] Saline Lock Urinary Cath still in place: No Assessment/Plan Chief Complaint/Hosp Course 1. Acute encephalopathy. Most probably toxic metabolic encephalopathy. Brain CT scan negative for any acute intracranial findings. 2. Hypernatremia. Most probably secondary to dehydration. Improving with IV fluids. 3. Nonoliguric acute kidney injury. Most likely from dehydration. Improved with IV hydration. Nephrology following the patient. 4. Status post fall. Etiology of fall is unclear. Brain CT negative. Will obtain physical therapy evaluation. 5. Schizophrenia. The patient on antipsychotics. 6. Leukocytosis. Possibly reactive. Resolved. 7. Debility. Will obtain physical therapy evaluation. 8. Homelessness. Social work on the case. 9. Fluids, electrolytes, and nutrition. Regular diet. 10. DVT prophylaxis. Bilateral sequential compression devices. 11. Gastrointestinal prophylaxis. Histamine 2 receptor blockers. 12. Plan. Continue current management. Await physical therapy evaluation. Case discussed with Dr. Hobson. Problems: Subjective 24 Hr Interval Summary Free Text/Dictation No changes in status. Exam/Review of Systems Vital Signs Vitals Vital Signs Date Time Temp Pulse Resp B/P Pulse Ox O2 Delivery O2 Flow Rate FiO2 08/21/16 14:00 97.5 74 19 116/69 97 Intake and Output 08/20/16 08/20/16 08/21/16 15:00 23:00 07:00 Intake Total 100 ml 1611.2 ml 480 ml Output Total 730 ml 620 ml Balance 100 ml 881.2 ml -140 ml Exam General: Thin, frail looking 61 year-old male lying in bed in no apparent distress. HEENT: Normocephalic, atraumatic. Eyes: Anicteric sclerae, conjunctivae clear. ENT: Nasal septum midline, oral mucosa moist. Neck supple, no JVD noticed. Respiratory: Bilaterally clear breath sounds. No use of accessory muscles of respiration. No adventitious breath sounds. Cardiovascular: S1, S2 heard. No murmurs or gallops. Abdomen: Soft, nontender, and nondistended. Bowel sounds positive in all 4 quadrants. Genitourinary: Deferred. Extremities: No cyanosis, no clubbing, no edema. Peripheral pulses palpable. Neurologic: Cranial nerves II through XII grossly intact. The patient is awake, alert, and oriented. Skin: Normal skin turgor. Hyperpigmentation of the face and sun exposed areas. Psychologic: Flat affect. Results Result Diagram: 08/20/16 0800 08/20/16 0556 Medications Medications Current Medications Ondansetron HCl (Zofran Inj) 4 mg Q6H PRN IV NAUSEA AND/OR VOMITING; Start 01/22 at 03:30 Acetaminophen 650 mg 650 mg Q6H PRN PO PAIN LEVEL 1-3 OR FEVER; Start 08/17/16 at 03:30 Multivitamins/ Thiamine HCl/ Folic Acid/Sodium Chloride (Mvi Adult/ Vitamin B1/ Folic Acid/NS) 1,011.2 ml @ 125 mls/ hr DAILY@09 IVPB Last administered on 09:04; Admin Dose 125 MLS/HR; Start 08/17/16 at 09:00 Pantoprazole (Protonix Tab) 40 mg DAILY@06 PO Last administered on 08/21/16 05 :52; Admin Dose 40 MG; Start 08/18/16 at 06:00 Lorazepam 1 mg 1 mg Q6H PRN PO AGITATION/ANXIETY; Start 08/17/16 at 12:30 Sodium Chloride (1/2 NS) 1,000 ml @ 50 mls/hr Q20H IV Last administered on 17:09; Admin Dose 50 MLS/HR; Start 08/17/16 at 14:00 Lorazepam (Ativan) 0.5 mg Q6H PRN PO ANXIETY; Start 08/17/16 at 15:30 Aripiprazole (Abilify) 30 mg QPM PO Last administered on 08/20/16 21:12; Admin Dose 30 MG; Start 08/19/16 at 21:00 Bupropion HCl (Wellbutrin Xl) 450 mg DAILY PO Last administered on 08/21/16 09 :04; Admin Dose 450 MG; Start 08/19/16 at 12:30 Clonazepam (Klonopin) 1 mg BID PO Last administered on 08/21/16 09:05; Admin Dose 1 MG; Start 08/19/16 at 12:30 Escitalopram Oxalate (Lexapro) 20 mg DAILY PO Last administered on 08/21/16 09 :04; Admin Dose 20 MG; Start 08/19/16 at 12:30 SHILPA FONG NP Aug 21, 2016 14:05
[2016-08-21] MEDS: SOD CHLORIDE 0.45% 1,000 ML IV SCH (17:58)
[2016-08-21 19:22] VITALS: BP 105/57; RESP 20
[2016-08-21] MEDS: ARIPIPRAZOLE 10 MG TAB PO SCH (22:33)
[2016-08-22 02:42] VITALS: BP 126/79; RESP 18
[2016-08-22 05:15] LABS: ADD SCAN DIFF NO
[2016-08-22] MEDS: PANTOPRAZOLE (EC) 40 MG TAB PO SCH (05:27)
[2016-08-22 05:30] LABS: ABNORMAL IP MESSAGE 1; BASOPHILS % 0.5 % (0.0-2.0); EOSINOPHILS # 0.3 10^3/ul (0.0-0.5); HEMATOCRIT 36.6 % (42.0-52.0); HEMOGLOBIN 11.7 g/dl (14.0-18.0); LYMPHOCYTES # 1.4 10^3/ul (0.8-2.9); LYMPHOCYTES % 21.5 % (15.0-51.0); MEAN CORPUSCULAR HEMOGLOBIN 28.7 pg (29.0-33.0); MEAN CORPUSCULAR VOLUME 89.7 fl (82.0-101.0); MEAN PLATELET VOLUME 13.3 fl (7.4-10.4); MONOCYTE # 0.6 10^3/ul (0.3-0.9); MONOCYTES % 9.1 % (0.0-11.0); NEUTROPHIL # 4.2 10^3/ul (1.6-7.5); NEUTROPHILS % 63.6 % (39.0-77.0); PLATELET COUNT 136 10^3/UL (140-415); RED BLOOD COUNT 4.08 10^6/ul (4.70-6.10); RED CELL DISTRIBUTION WIDTH 13.1 % (11.5-14.5); WHITE BLOOD COUNT 6.6 10^3/ul (4.8-10.8)
[2016-08-22 06:01] LABS: MAGNESIUM 1.8 mg/dl (1.7-2.5); PHOSPHORUS 3.5 mg/dl (2.5-4.9)
[2016-08-22 06:05] LABS: CREATININE 0.65 mg/dl (0.61-1.24); POTASSIUM 3.8 mmol/L (3.5-5.1)
[2016-08-22 07:38] VITALS: BP 122/77; RESP 18
[2016-08-22] MEDS: MULTIVITAMINS 10 ML, THIAMINE 100 MG, FOLIC ACID 1 MG in SOD CHLORIDE 0.9% 1,000 ML IVPB SCH (07:47)
[2016-08-22] MEDS: ESCITALOPRAM 10 MG TAB PO SCH (07:48)
[2016-08-22] MEDS: clonAZEPAM 0.5 MG TAB PO SCH ×2 (07:48→20:15)
[2016-08-22] MEDS: BUPROPION (XL) 150 MG TAB PO SCH (07:49)
[2016-08-22 13:25] VITALS: BP 112/71; RESP 20
--- NOTE | 2016-08-22 14:40 | PN ---
Date/Time of Note Date/Time of Note DATE: 08/22/16 TIME: 14:38 Assessment/Plan VTE Prophylaxis VTE Prophylaxis Intervention: SCD's Lines/Catheters IV Catheter Type (from [facility]): Saline Lock Urinary Cath still in place: No Assessment/Plan Chief Complaint/Hosp Course Assessment and plan 1. Acute encephalopathy likely toxic metabolic. Of note CT scan of the brain was negative for any acute findings 2. Hyponatremia. Status post IV fluids. At this time. 3. AK I. Improved status post IV hydration. Continue with nephrology recommendations 4. Status post mechanical fall. Physical therapy following. 5. Schizophrenia. Continue antipsychotic medications 6. Debility. Continue with physical therapy 7. Home status. Follow. Disposition plan: Physical therapy to follow. Patient will need placement. Will follow up with case management Discussed plan of care with Dr. Saxena Problems: Subjective 24 Hr Interval Summary Free Text/Dictation resting at this time. no apparent distress seen Exam/Review of Systems Vital Signs Vitals Vital Signs Date Time Temp Pulse Resp B/P Pulse Ox O2 Delivery O2 Flow Rate FiO2 08/22/16 13:25 97.5 62 20 112/71 92 Intake and Output 08/21/16 08/21/16 08/22/16 15:00 23:00 07:00 Intake Total 1000 ml 1440 ml 1080 ml Output Total 500 ml Balance 1000 ml 1440 ml 580 ml Exam Constitutional: alert Psych: nl mood/affect Neck: supple, No jvd Respiratory: clear to auscultation Cardiovascular: regular rate and rhythm Gastrointestinal: non-tender, soft Extremities: No edema Neurological: nl speech Results Result Diagram: 08/22/16 0456 08/22/16 0456 Results 24 hrs Laboratory Tests Test 08/22/16 04:56 White Blood Count 6.6 Red Blood Count 4.08 L Hemoglobin 11.7 L Hematocrit 36.6 L Mean Corpuscular Volume 89.7 Mean Corpuscular Hemoglobin 28.7 L Mean Corpuscular Hemoglobin Concent 32.0 Red Cell Distribution Width 13.1 Platelet Count 136 #L Mean Platelet Volume 13.3 H Neutrophils % 63.6 Lymphocytes % 21.5 Monocytes % 9.1 Eosinophils % 5.0 Basophils % 0.5 Nucleated Red Blood Cells % 0.0 Neutrophils # 4.2 Lymphocytes # 1.4 Monocytes # 0.6 Eosinophils # 0.3 Basophils # 0.0 Nucleated Red Blood Cells # 0.0 Sodium Level 144 Potassium Level 3.8 Chloride Level 100 Carbon Dioxide Level 32 H Anion Gap 16 Blood Urea Nitrogen 18 Creatinine 0.65 Glucose Level 92 Calcium Level 9.0 Phosphorus Level 3.5 Magnesium Level 1.8 Medications Medications Current Medications Ondansetron HCl (Zofran Inj) 4 mg Q6H PRN IV NAUSEA AND/OR VOMITING; Start 01/22 at 03:30 Acetaminophen 650 mg 650 mg Q6H PRN PO PAIN LEVEL 1-3 OR FEVER; Start 08/17/16 at 03:30 Multivitamins/ Thiamine HCl/ Folic Acid/Sodium Chloride (Mvi Adult/ Vitamin B1/ Folic Acid/NS) 1,011.2 ml @ 125 mls/ hr DAILY@09 IVPB Last administered on 07:47; Admin Dose 125 MLS/HR; Start 08/17/16 at 09:00 Pantoprazole (Protonix Tab) 40 mg DAILY@06 PO Last administered on 08/22/16 05 :27; Admin Dose 40 MG; Start 08/18/16 at 06:00 Lorazepam 1 mg 1 mg Q6H PRN PO AGITATION/ANXIETY; Start 08/17/16 at 12:30 Sodium Chloride (1/2 NS) 1,000 ml @ 50 mls/hr Q20H IV Last administered on 17:58; Admin Dose 50 MLS/HR; Start 08/17/16 at 14:00 Lorazepam (Ativan) 0.5 mg Q6H PRN PO ANXIETY; Start 08/17/16 at 15:30 Aripiprazole (Abilify) 30 mg QPM PO Last administered on 08/21/16 22:33; Admin Dose 30 MG; Start 08/19/16 at 21:00 Bupropion HCl (Wellbutrin Xl) 450 mg DAILY PO Last administered on 08/22/16 07 :49; Admin Dose 450 MG; Start 08/19/16 at 12:30 Clonazepam (Klonopin) 1 mg BID PO Last administered on 08/22/16 07:48; Admin Dose 1 MG; Start 08/19/16 at 12:30 Escitalopram Oxalate (Lexapro) 20 mg DAILY PO Last administered on 08/22/16 07 :48; Admin Dose 20 MG; Start 08/19/16 at 12:30 DAVID DUMONT Aug 22, 2016 14:40
[2016-08-22 19:56] VITALS: BP 117/73; RESP 20
[2016-08-22] MEDS: ARIPIPRAZOLE 10 MG TAB PO SCH (20:15)
[2016-08-22] MEDS: SOD CHLORIDE 0.45% 1,000 ML IV SCH (22:53)
[2016-08-23 02:04] VITALS: BP 114/68; RESP 20
[2016-08-23] MEDS: PANTOPRAZOLE (EC) 40 MG TAB PO SCH (05:36)
[2016-08-23 07:40] VITALS: BP 108/68; RESP 20
[2016-08-23] MEDS: clonAZEPAM 0.5 MG TAB PO SCH ×2 (09:12→20:40)
[2016-08-23] MEDS: BUPROPION (XL) 150 MG TAB PO SCH (09:12)
[2016-08-23] MEDS: ESCITALOPRAM 10 MG TAB PO SCH (09:12)
[2016-08-23] MEDS: MULTIVITAMINS 10 ML, THIAMINE 100 MG, FOLIC ACID 1 MG in SOD CHLORIDE 0.9% 1,000 ML IVPB SCH (09:21)
--- NOTE | 2016-08-23 10:18 | PN ---
Date/Time of Note Date/Time of Note DATE: 08/23/16 TIME: 10:15 Assessment/Plan VTE Prophylaxis VTE Prophylaxis Intervention: SCD's Lines/Catheters IV [facility] Type (from [facility]): Saline Lock Urinary Cath still in place: No Assessment/Plan Chief Complaint/Hosp Course Assessment and plan 1. Acute encephalopathy likely toxic metabolic. Of note CT scan of the brain was negative for any acute findings. improved 2. Hyponatremia. Status post IV fluids. stable At this time. 3. AK I. Improved status post IV hydration. Continue with nephrology recommendations 4. Status post mechanical fall. Physical therapy following.continue fall precautions 5. Schizophrenia. Continue antipsychotic medications 6. Debility. Continue with physical therapy 7. 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 Disposition plan: Physical therapy to follow. Patient will need placement for debility. continue supportive measures Discussed plan of care with Dr. Saxena Problems: Subjective 24 Hr Interval Summary Free Text/Dictation resting at this time. calm and comfortable. no specific complaints Exam/Review of Systems Vital Signs Vitals Vital Signs Date Time Temp Pulse Resp B/P Pulse Ox O2 Delivery O2 Flow Rate FiO2 08/23/16 07:40 97.3 67 20 108/68 95 Intake and Output 08/22/16 08/22/16 08/23/16 14:59 22:59 06:59 Intake Total 180 ml 1780 ml 315 ml Output Total 500 ml Balance 180 ml 1280 ml 315 ml Exam Constitutional: alert, oriented Psych: nl mood/affect, No anxiety Neck: supple Respiratory: normal air movement, No congested cough Cardiovascular: other (remains regular rate ) Gastrointestinal: non-tender, soft Musculoskeletal: No nl gait and stance Neurological: nl mental status, nl speech Results Result Diagram: 08/22/16 0456 08/22/16 0456 Medications Medications Current Medications Ondansetron HCl (Zofran Inj) 4 mg Q6H PRN IV NAUSEA AND/OR VOMITING; Start 01/22 at 03:30 Acetaminophen 650 mg 650 mg Q6H PRN PO PAIN LEVEL 1-3 OR FEVER; Start 08/17/16 at 03:30 Multivitamins/ Thiamine HCl/ Folic Acid/Sodium Chloride (Mvi Adult/ Vitamin B1/ Folic Acid/NS) 1,011.2 ml @ 125 mls/ hr DAILY@09 IVPB Last administered on t 09:21; Admin Dose 125 MLS/HR; Start 08/17/16 at 09:00 Pantoprazole (Protonix Tab) 40 mg DAILY@06 PO Last administered on 08/23/16 05 :36; Admin Dose 40 MG; Start 08/18/16 at 06:00 Lorazepam 1 mg 1 mg Q6H PRN PO AGITATION/ANXIETY; Start 08/17/16 at 12:30 Sodium Chloride (1/2 NS) 1,000 ml @ 50 mls/hr Q20H IV Last administered on 22:53; Admin Dose 50 MLS/HR; Start 08/17/16 at 14:00 Lorazepam (Ativan) 0.5 mg Q6H PRN PO ANXIETY; Start 08/17/16 at 15:30 Aripiprazole (Abilify) 30 mg QPM PO Last administered on 08/22/16 20:15; Admin Dose 30 MG; Start 08/19/16 at 21:00 Bupropion HCl (Wellbutrin Xl) 450 mg DAILY PO Last administered on 08/23/16 09 :12; Admin Dose 450 MG; Start 08/19/16 at 12:30 Clonazepam (Klonopin) 1 mg BID PO Last administered on 08/23/16 09:12; Admin Dose 1 MG; Start 08/19/16 at 12:30 Escitalopram Oxalate (Lexapro) 20 mg DAILY PO Last administered on 08/23/16 09 :12; Admin Dose 20 MG; Start 08/19/16 at 12:30 DAVID DUMONT Aug 23, 2016 10:17
[2016-08-23 14:00] VITALS: BP 94/52; RESP 20
[2016-08-23 19:52] VITALS: BP 109/63; RESP 18
[2016-08-23] MEDS: SOD CHLORIDE 0.45% 1,000 ML IV SCH (19:55)
[2016-08-23] MEDS: ARIPIPRAZOLE 10 MG TAB PO SCH (20:40)
[2016-08-24 02:15] VITALS: BP 127/77; RESP 18
[2016-08-24] MEDS: PANTOPRAZOLE (EC) 40 MG TAB PO SCH (05:17)
[2016-08-24] MEDS: SOD CHLORIDE 0.45% 1,000 ML IV SCH (05:17)
[2016-08-24] MEDS: ESCITALOPRAM 10 MG TAB PO SCH (09:05)
[2016-08-24] MEDS: BUPROPION (XL) 150 MG TAB PO SCH (09:05)
[2016-08-24] MEDS: clonAZEPAM 0.5 MG TAB PO SCH (09:05)
[2016-08-24] MEDS: MULTIVITAMINS 10 ML, THIAMINE 100 MG, FOLIC ACID 1 MG in SOD CHLORIDE 0.9% 1,000 ML IVPB SCH (09:10)
[2016-08-24 12:58] VITALS: BP 104/63; RESP 18
[2016-08-24] MEDS ORDERED: PANT40TA4 PO (16:28)
--- NOTE | 2016-08-24 16:30 | PDOCDIS ---
Discharge Instructions DIAGNOSIS Discharge Diagnosis 1. Acute encephalopathy likely toxic metabolic.2 2. [place] I. Improved status post IV hydration. Continue with nephrology recommendations 3. Status post mechanical fall. Physical therapy following.continue fall precautions 4. Schizophrenia. Continue antipsychotic medications 5. Debility. Continue with physical therapy 6. 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 CONDITION Patient Condition: Stable HOME CARE INSTRUCTIONS: Special Diet: REGULAR DIET OTHER ORDERS: Other Orders: Further management and care for intermediate facility DAVID DUMONT Aug 24, 2016 16:30
--- NOTE | 2016-08-24 16:43 | DS ---
Date/Time of Note Date/Time of Note DATE: 08/24/16 TIME: 16:42 Discharge Summary Admission/Discharge Info Admit Date/Time Aug 17, 2016 at 02:33 Discharge Date/Time Discharge Diagnosis 1. Acute encephalopathy likely toxic metabolic. 2. [place] I. 3. Status post mechanical fall. 4. Schizophrenia. 5. Debility. Continue with physical therapy Patient Condition: Stable Hospital Course This is a 61-year-old male who is a poor historian of his medical history came [facility] after sustaining a fall from reportedly his home. He was also reported to be somnolent and he does have history of schizophrenia. On examination he did have electrolyte imbalance with hyponatremia as well as acute kidney injury for which was provided with IV hydration. He did have some symptoms of encephalopathy and he did have CT scan of his head that was negative for any acute intracranial findings. Likely etiology toxic metabolic. Patient was quite debilitated and there was question of patient being homeless. He was seen by social sciences chair as well as by physical therapy. After evaluation it was recommended the patient for further care management per [facility] facility. Case management was involved and we did get patient [facility] facility for physical therapy. During his course of stay he did improve. Plan of care was discussed with the patient. On the day of discharge patient was in stable condition Discussed plan of care with Dr. Saxena [facility] Reported Medications Bupropion Hcl* (Wellbutrin XL*) 150 Mg Tab.sr.24h, 450 MG PO DAILY, TAB.SA 08/19/16 Aripiprazole* (Abilify*) 30 Mg Tablet, 30 MG PO QPM, #30 TAB 08/19/16 Escitalopram Oxalate* (Lexapro*) 20 Mg Tablet, 30 MG PO DAILY, #30 TAB 08/19/16 Clonazepam* (Klonopin*) 1 Mg Tablet, 1 MG PO BID, TAB 08/19/16 Docusate Sodium* (Colace*) 100 Mg Capsule, 100 MG PO BID Y for CONSTIPATION, # 60 CAP 06/28/16 Follow-up Plan CONDITION Patient Condition: Stable HOME CARE INSTRUCTIONS: Special Diet: REGULAR DIET OTHER ORDERS: Other Orders: Further management and care for penitentiary facility Primary Care Provider Not On Staff Doctor Time spent on discharge: > 30 minutes DAVID DUMONT Aug 24, 2016 16:43
[2016-08-24 19:44] VITALS: BP 102/55; RESP 18
== END 2016-08-24 20:30 | DRG 92 ==
LOC: E/R 20:20 → MS2 08-17 02:33
PROVIDERS: ADMIT Family Medicine; ATTEND Family Medicine
DX: G92 Toxic encephalopathy (principal); N17.9 Acute kidney failure, unspecified; E87.0 Hyperosmolality and hypernatremia; F20.9 Schizophrenia, unspecified; E86.0 Dehydration; Z59.0 Homelessness; E87.6 Hypokalemia; Z72.89 Other problems related to lifestyle; D64.9 Anemia, unspecified; D72.829 Elevated white blood cell count, unspecified
CPT/HCPCS: 36415; 70450; 71010; 80048; 80053; 80061; 80306; 80307; 81001; 81003; 82550; 82553; 82607; 82728; 82746; 83036; 83540; 83605; 83735; 84100; 84425; 84436; 84439; 84443; 84479; 84484; 85025; 85610; 85730; 86704; 86706; 86708; 86709; 86803; 87040; 87081; 87086; 87340; 93005; 96374; 96375; 97110; 97116; 97162; 97530; C9113; J0400; J0692; J1956; J2405; J3370; J3411; J7030

== ENCOUNTER 2016-11-21 19:13 | Emergency (ER) | payer OTHER ==
[~2016-11-21] VITALS: Ht 182.9 cm; Wt 59.1 kg
[~2016-11-21 19:13] MED LIST changes: +ARIP30TA10 PO; +BUPR-75 PO; +CLON-412 PO; +ESCI20TA PO; +PANT40TA4 PO
[2016-11-21 19:19] VITALS: Ht 182.9 cm; Wt 59.1 kg
--- NOTE | 2016-11-21 19:23 | ERA ---
ER Documentation Chief Complaint Date/Time DATE: 11/21/16 TIME: 19:23 Chief Complaint BIBAlexandra [id number],refused to eat X30 days,"thinking of starving to " HPI The patient is a 61-year-old male, presenting to the ER because he wanted to kill himself by stabbing himself. He has not been eating well for the last month, denies auditory/visual hallucination, homicidal ideation. He has previously been hospitalized psychiatric hospital for acute suicidal ideation. He denies fever, chills, headache, neck pain, chest pain, abdominal pain, vomiting or dysuria. He denies smoking or drinking or using any illicit drug Past medical history: Schizoaffective disorder, bipolar disorder, depression Past surgical history: None ROS All systems reviewed and are negative except as per history of present illness. Medications Home Meds Active Scripts Pantoprazole* (Pantoprazole*) 40 Mg Tablet.dr, 40 MG PO DAILY@06 for 30 Days Prov:DAVID DUMONT 08/24/16 Reported Medications Bupropion Hcl* (Wellbutrin XL*) 150 Mg Tab.sr.24h, 450 MG PO DAILY, TAB.SA 08/19/16 Aripiprazole* (Abilify*) 30 Mg Tablet, 30 MG PO QPM, #30 TAB 08/19/16 Escitalopram Oxalate* (Lexapro*) 20 Mg Tablet, 30 MG PO DAILY, #30 TAB 08/19/16 Clonazepam* (Klonopin*) 1 Mg Tablet, 1 MG PO BID, TAB 08/19/16 Docusate Sodium* (Colace*) 100 Mg Capsule, 100 MG PO BID Y for CONSTIPATION, # 60 CAP 06/28/16 Allergies Allergies: Coded Allergies: No Known Allergy (Unverified , 06/28/16) PMhx/Soc History of Surgery: No Anesthesia Reaction: No Hx Neurological Disorder: No Hx Respiratory Disorders: No Hx Cardiac Disorders: No Hx Psychiatric Problems: Yes (bipolar, depression, schizoaffective) Hx Miscellaneous Medical Probl: Yes Hx Alcohol Use: No (pt denies) Hx Substance Use: No Hx Tobacco Use: No Physical Exam Vitals Vital Signs Date Time Temp Pulse Resp B/P Pulse Ox O2 Delivery O2 Flow Rate FiO2 11/21/16 19:19 98.2 74 18 111/75 98 Physical Exam Const: No acute distress. Head: Atraumatic. Eyes: Normal Conjunctiva. ENT: Normal External Ears, Nose and Mouth. Neck: Full range of motion. No meningismus. Resp: Clear to auscultation bilaterally. Cardio: Regular rate and rhythm. Abd: Soft, non distended, normal bowel sounds, non tender. Skin: No petechiae or rashes. Back: No midline or flank tenderness. Ext: No cyanosis, or edema. Neur: Awake and alert. No focal deficit Psych: Depressed and suicidal Result Diagram: 11/21/16192911/21/161929 Results 24 hrs Laboratory Tests Test 11/21/16 19:30 11/21/16 19:34 White Blood Count 7.910^3/ul Red Blood Count 5.1610^6/ul Hemoglobin 15.3g/dl Hematocrit 43.4% Mean Corpuscular Volume 84.1fl Mean Corpuscular Hemoglobin 29.7pg Mean Corpuscular Hemoglobin Concent 35.3g/dl Red Cell Distribution Width 12.4% Platelet Count 88924^3/UL Mean Platelet Volume 12.0fl Neutrophils % 81.7% Lymphocytes % 9.1% Monocytes % 8.4% Eosinophils % 0.3% Basophils % 0.1% Nucleated Red Blood Cells % 0.0/100WBC Neutrophils # 6.510^3/ul Lymphocytes # 0.710^3/ul Monocytes # 0.710^3/ul Eosinophils # 0.010^3/ul Basophils # 0.010^3/ul Nucleated Red Blood Cells # 0.010^3/ul Sodium Level 137mmol/L Potassium Level 3.9mmol/L Chloride Level 91mmol/L Carbon Dioxide Level 20mmol/L Anion Gap 30 Blood Urea Nitrogen 20mg/dl Creatinine 0.88mg/dl Glucose Level 126mg/dl Calcium Level 10.3mg/dl Total Bilirubin 0.3mg/dl Direct Bilirubin 0.00mg/dl Indirect Bilirubin 0.3mg/dl Aspartate Amino Transf (AST/SGOT) 27IU/L Alanine Aminotransferase (ALT/SGPT) 27IU/L Alkaline Phosphatase 74IU/L Total Protein 7.8g/dl Albumin 4.9g/dl Globulin 2.90g/dl Albumin/Globulin Ratio 1.68 Salicylates Level < 1.0mg/dl Acetaminophen Level < 10.0ug/ml Ethyl Alcohol Level < 10.0mg/dl Bedside Glucose 132mg/dL Procedures/MDM MEDICAL MAKING DECISION: The patient is a 61-year-old male, presenting with acute suicidal ideation. He was treated with 1 L normal saline for clinical dehydration with good response. The differential diagnoses considered include but are not limited to decompensated psychiatric illness, anxiety attack, panic attack, depression Departure Diagnosis: Primary Impression: Suicidal ideation Condition: Good Comments He is clear for psychiatric evaluation JULIO JACOBSEN MD Nov 21, 2016 19:23
[2016-11-21 19:41] LABS: BASOPHILS % 0.1 % (0.0-2.0); EOSINOPHILS % 0.3 % (0.0-7.0); HEMATOCRIT 43.4 % (42.0-52.0); HEMOGLOBIN 15.3 g/dl (14.0-18.0); LYMPHOCYTES # 0.7 10^3/ul (0.8-2.9); LYMPHOCYTES % 9.1 % (15.0-51.0); MEAN CORPUSCULAR HEMOGLOBIN 29.7 pg (29.0-33.0); MEAN CORPUSCULAR HGB CONC 35.3 g/dl (32.0-37.0); MEAN CORPUSCULAR VOLUME 84.1 fl (82.0-101.0); MONOCYTE # 0.7 10^3/ul (0.3-0.9); MONOCYTES % 8.4 % (0.0-11.0); NEUTROPHIL # 6.5 10^3/ul (1.6-7.5); NEUTROPHILS % 81.7 % (39.0-77.0); PLATELET COUNT 130 10^3/UL (140-415); RED BLOOD COUNT 5.16 10^6/ul (4.70-6.10); RED CELL DISTRIBUTION WIDTH 12.4 % (11.5-14.5); WHITE BLOOD COUNT 7.9 10^3/ul (4.8-10.8)
[2016-11-21 20:02] LABS: ALANINE AMINOTRANSFERASE 27 IU/L (13-69); ALBUMIN 4.9 g/dl (3.3-4.9); ALBUMIN/GLOBULIN RATIO 1.68; ALKALINE PHOSPHATASE 74 IU/L (42-121); ANION GAP 30 (8-16); ASPARTATE AMINO TRANSFERASE 27 IU/L (15-46); BILIRUBIN,INDIRECT 0.3 mg/dl (0-1.1); BILIRUBIN,TOTAL 0.3 mg/dl (0.2-1.3); BLOOD UREA NITROGEN 20 mg/dl (7-20); CALCIUM 10.3 mg/dl (8.4-10.2); CARBON DIOXIDE 20 mmol/L (21-31); CHLORIDE 91 mmol/L (97-110); CREATININE 0.88 mg/dl (0.61-1.24); GLUCOSE 126 mg/dl (70-220); POTASSIUM 3.9 mmol/L (3.5-5.1); SODIUM 137 mmol/L (135-144); TOTAL PROTEIN 7.8 g/dl (6.1-8.1)
[2016-11-21 20:04] LABS: ACETAMINOPHEN < 10.0 ug/ml (10.0-30.0); ETHANOL < 10.0 mg/dl; SALICYLATE < 1.0 mg/dl (5.0-30.0)
--- NOTE | 2016-11-21 21:02 | PSY ---
Date/Time of Note Date/Time of Note DATE: 11/21/16 TIME: 20:57 Psychiatric Subjective Eval Consent Pt consented to telemedicine: Yes Subjective Evaluation Patient location: emergency Chief Complaint: GABYA [id number],refused to eat X30 days,"thinking of starving to " Reason for consult: SUICIDAL IDEATION History of present illness Pt is a 61 year old male, clearly psychotic and a poor historian. However, he is able to tell me he is not eating and he wants to . He states he is not eating because he "cannot get around." He denies paranoia. When asked about voices, he replied "maybe." Pt with wide eyed stare, flat facial expression, thin. States he has not been taking his medications for over one month. Cannot state why he stopped. Pt states he is not sleeping. Past psychiatric history Schioaffective disorder, OCD by history. Hospitalization: Suicidal Attempt(s) Family History NA Medical history Problems Medical Problems: (1) Acute hepatitis Status: Acute (2) Normocytic anemia Status: Acute (3) Overdose on Tylenol Status: Acute (4) Sepsis Status: Acute (5) Suicide attempt by substance overdose Status: Acute (6) Thrombocytopenia Status: Acute Allergies: Coded Allergies: No Known Allergy (Unverified , 06/28/16) Substance Abuse Substance use: No known substance abuse Social History Marital status: single Level of education: NA DPA/Conservatorship: No Occupation/Senior Living: Disabled Psychiatric Objective Eval Physical Examination: Physical Examination: Applicable Sleep: Insomnia Appetite: Decreased Energy: Decreased Interest: Decreased Mental Status Examination: Appearance: Poor Hygiene, Disheveled Eye Contact: Other (Intense, wide eyed stare. Reduced blink rate. ) Psychomotor Activity: Slow Behavior: Cooperative Speech: Soft AFFECT: Flat Mood: Depressed Though Process: Perseverative Thought Content: Hallucinations Suicidal: Yes Homicidal: No On 72 hour hold: No Orientation: x3 Cognition: Alert Insight: Impared Judgement: Impared Laboratory Results Laboratory Tests Test 11/21/16 19:30 11/21/16 19:34 White Blood Count 7.910^3/ul Red Blood Count 5.1610^6/ul Hemoglobin 15.3g/dl Hematocrit 43.4% Mean Corpuscular Volume 84.1fl Mean Corpuscular Hemoglobin 29.7pg Mean Corpuscular Hemoglobin Concent 35.3g/dl Red Cell Distribution Width 12.4% Platelet Count 20929^3/UL Mean Platelet Volume 12.0fl Neutrophils % 81.7% Lymphocytes % 9.1% Monocytes % 8.4% Eosinophils % 0.3% Basophils % 0.1% Nucleated Red Blood Cells % 0.0/100WBC Neutrophils # 6.510^3/ul Lymphocytes # 0.710^3/ul Monocytes # 0.710^3/ul Eosinophils # 0.010^3/ul Basophils # 0.010^3/ul Nucleated Red Blood Cells # 0.010^3/ul Sodium Level 137mmol/L Potassium Level 3.9mmol/L Chloride Level 91mmol/L Carbon Dioxide Level 20mmol/L Anion Gap 30 Blood Urea Nitrogen 20mg/dl Creatinine 0.88mg/dl Glucose Level 126mg/dl Calcium Level 10.3mg/dl Total Bilirubin 0.3mg/dl Direct Bilirubin 0.00mg/dl Indirect Bilirubin 0.3mg/dl Aspartate Amino Transf (AST/SGOT) 27IU/L Alanine Aminotransferase (ALT/SGPT) 27IU/L Alkaline Phosphatase 74IU/L Total Protein 7.8g/dl Albumin 4.9g/dl Globulin 2.90g/dl Albumin/Globulin Ratio 1.68 Salicylates Level < 1.0mg/dl Acetaminophen Level < 10.0ug/ml Ethyl Alcohol Level < 10.0mg/dl Bedside Glucose 132mg/dL Assessment and Plan Assessment/Diagnosis [place] I: Schizoaffective Disorder, Bipolar Type (by History), OCD Recommendation/Plan Medication Management Per inpatient psychiatry. Consider offering Zyprexa Zydis 2.5mg while in ER. Psychotherapy NA Pt. Caregiver/Family Education NA Follow-up/Disposition Place on 5150 for DTS and GD. Transfer to inpatient psychiatry. Patient wants to and is not eating. 5150 Recommendation: Place Anai GUSTEPHANY Nov 21, 2016 21:02
[2016-11-21] MEDS ORDERED: DEXTROSE 5%-0.45% NACL 1,000 ML IV ONE (21:29)
[2016-11-21] MEDS ORDERED: LACTATED RINGER'S 1,000 ML IV ONE (21:29)
[2016-11-22 04:38] LABS: ADD UMIC YES; UR ASCORBIC ACID NEGATIVE (NEGATIVE); UR BILIRUBIN (Dip) NEGATIVE (NEGATIVE); UR BLOOD (Dip) NEGATIVE (NEGATIVE); UR CLARITY SLIGHTLY CLOUDY (CLEAR); UR COLOR YELLOW (YELLOW); UR GLUCOSE (Dip) 1+ mg/dL (NEGATIVE); UR KETONES (Dip) 2+ mg/dL (NEGATIVE); UR LEUKOCYTE ESTERASE (Dip) NEGATIVE Leu/ul (NEGATIVE); UR NITRITE (Dip) NEGATIVE (NEGATIVE); UR RBC 1 /HPF (0-5); UR SPECIFIC GRAVITY (Dip) 1.021 (1.003-1.030); UR TOTAL PROTEIN (Dip) 1+ mg/dl (NEGATIVE); UR UROBILINOGEN (Dip) 2+ mg/dL (NEGATIVE)
[2016-11-22 05:11] LABS: BARBITURATES Negative (NEGATIVE); BENZODIAZEPINES Negative (NEGATIVE); CANNABINOIDS Negative (NEGATIVE); COCAINE Negative (NEGATIVE); OPIATES Negative (NEGATIVE)
--- NOTE | 2016-11-22 05:41 | EN ---
Date/Time of Note Date/Time of Note DATE: 11/22/16 TIME: 05:37 ER Progress Note Observation Note: Time: 9 hours Family Hx: No Hypertension Evaluation: Patient was signed out to me by Dr. Nuno pending PET team evaluation for psychiatric hold recommended by the psychiatrist. Patient has reportedly been starving himself in an attempt to . Multiple exams showed stable symptoms and he is now eating in the ED. I did give him a bolus of IV fluids as he seemed somewhat dehydrated on my exam. Patient still awaiting evaluation by the PET team.I reviewed his labs and there is evidence of most likely starvation ketoacidosis, however the patient is now eating and status post IV fluids. I believe he is medically cleared for psychiatric evaluation and inpatient psychiatric admission. KAYDEN GARCIA MD Nov 22, 2016 05:41
[2016-11-22 10:47] VITALS: BP 119/68; PULSE 65; RESP 20; TEMP 98.5
== END 2016-11-22 14:30 ==
LOC: E/R 19:13
DX: R45.851 Suicidal ideations (principal)
CPT/HCPCS: 36415; 80053; 80306; 80307; 81001; 82962; 85025; J7120; Z7502; J7042

== ENCOUNTER 2017-08-20 06:16 | Inpatient (IN) | END 2017-09-12 19:17 | DRG 308 ==